=== PATIENT | male | born 1935 | race Caucasian/White ===

== ENCOUNTER 2017-07-04 14:15 | Outpatient (CLI) | payer MEDICARE, OTHER ==
[2017-07-04 19:37] LABS: PSA FREE 1.482 ng/mL (0.16-2.81)
[2017-07-04 19:38] LABS: PSA TOTAL 9.011 ng/mL (0.000-2.000)
== END 2017-07-04 14:16 | disposition home or self-care (01) ==
LOC: LAB.WCP 14:15
PROVIDERS: ATTEND Family Medicine
DX: R97.20 Elevated prostate specific antigen [PSA] (principal)
CPT/HCPCS: 36415; 84154

== ENCOUNTER 2018-07-11 08:00 | Outpatient (CLI) | payer MEDICARE, OTHER ==
[2018-07-11 18:54] LABS: BASOPHILS % (AUTO) 0.3 %; EOSINOPHILS # (AUTO) 0.3 10^3/uL (0.0-0.7); EOSINOPHILS % (AUTO) 3.8 %; HGB - HEMOGLOBIN 14.4 g/dL (14.0-18.0); LYMPHOCYTES % (AUTO) 25.8 %; MEAN CORPUSCULAR HEMOGLOBIN 34.1 pg (27.0-31.0); MEAN CORPUSCULAR HGB CONC 34.1 g/dL (32.0-36.0); MEAN CORPUSCULAR VOLUME 99.9 fL (80.0-94.0); MEAN PLATELET VOLUME 9.3 fL (7.4-11.4); MONOCYTES # (AUTO) 0.9 10^3/uL (0.0-1.0); MONOCYTES % (AUTO) 11.2 %; NEUTROPHILS # (AUTO) 4.5 10^3/uL (1.5-6.6); NEUTROPHILS % (AUTO) 58.9 %; PLT - PLATELET COUNT 263 10^3/uL (130-450); RED BLOOD COUNT 4.23 10^6/uL (4.70-6.10); RED CELL DISTRIBUTION WIDTH 14.3 % (12.0-15.0); WHITE BLOOD COUNT 7.6 x10^3/uL (4.8-10.8)
[2018-07-11 19:00] LABS: THYROID STIMULATING HORMONE 1.39 uIU/mL (0.34-5.60)
[2018-07-11 19:12] LABS: FOLATE 23.83 ng/mL (5.90 - >24.8)
[2018-07-11 19:44] LABS: ALBUMIN 4.1 g/dL (3.2-5.5); ALBUMIN/GLOBULIN RATIO 1.2 (1.0-2.2); ALKALINE PHOSPHATASE 47 IU/L (42-121); ALT ALANINE AMINOTRANSFERASE 15 IU/L (10-60); AST ASPARTATE AMINOTRANSFERASE 20 IU/L (10-42); BILIRUBIN,TOTAL 1.1 mg/dL (0.2-1.0); BUN - BLOOD UREA NITROGEN 13 mg/dL (6-20); CALCIUM 8.9 mg/dL (8.5-10.3); CARBON DIOXIDE - CO2 26 mmol/L (21-32); CHLORIDE 92 mmol/L (101-111); CHOL/HDL RATIO 2.1 (<5.0); CHOLESTEROL 169 mg/dL; CREATININE 0.8 mg/dL (0.6-1.2); GFR - MDRD 92 (>89); GLUCOSE 102 mg/dL (70-100); HDL CHOLESTEROL 80 mg/dL; LDL CHOLESTEROL,CALCULATED 78 mg/dL; SODIUM 126 mmol/L (135-145); TOTAL PROTEIN 7.5 g/dL (6.7-8.2); VLDL CHOLESTEROL 11 mg/dL
== END 2018-07-11 08:01 | disposition home or self-care (01) ==
LOC: LAB.WCP 08:00
PROVIDERS: ATTEND Family Medicine
DX: Z00.00 Encounter for general adult medical examination without abnormal findings (principal); R03.0 Elevated blood-pressure reading, without diagnosis of hypertension; M62.81 Muscle weakness (generalized)
CPT/HCPCS: 36415; 80053; 80061; 82306; 82607; 82746; 83721; 84443; 85025

== ENCOUNTER 2018-09-22 15:34 | Outpatient (CLI) | payer MEDICARE, OTHER ==
[2018-09-22 19:41] LABS: CALCIUM 9.5 mg/dL (8.5-10.3); CREATININE 0.7 mg/dL (0.6-1.2)
== END 2018-09-22 23:59 | disposition home or self-care (01) ==
LOC: LAB.WCP 15:34
PROVIDERS: ATTEND Family Medicine
DX: E87.1 Hypo-osmolality and hyponatremia (principal)
CPT/HCPCS: 36415; 80048

== ENCOUNTER 2020-09-05 15:26 | Outpatient (CLI) | payer MEDICARE, OTHER | END 2020-09-05 15:27 | disposition critical access hospital (66) | LOC: EMS 15:26 | PROVIDERS: ATTEND Surgery | DX: R41.82 Altered mental status, unspecified (principal) | CPT/HCPCS: A0425; A0427 ==

== ENCOUNTER 2020-09-05 15:46 | Inpatient (IN) | payer MEDICARE, OTHER ==
--- NOTE | 2020-09-05 15:55 | ED Physician Documentation ---
PD HPI FOCAL NEURO - Stated complaint Stated Complaint: ALOC - History obtained from History obtained from: Patient - Additional information Additional information: 85-year-old gentleman brought in by ambulance for altered mental status and potentially weakness of unclear acuity. He was found on the floor by his neighbors, last known unknown. It sounds like he lives alone and is generally fairly healthy with the exception of taking some eyedrops. He is definitely confused. No obvious stroke syndrome. Blood sugar prior to arrival was in the 130s. He is incontinent of urine. Review of Systems Unable to obtain: AMS, Confused PD PAST MEDICAL HISTORY - Past Medical History Cardiovascular: None Respiratory: None Endocrine/Autoimmune: None GI: None : None Psych: Depression, Anxiety Musculoskeletal: None Derm: None - Past Surgical History General: Colonoscopy HEENT: Cataracts, Tonsil/Adenoidectomy - Present Medications Home Medications: Ambulatory Orders Medication Instructions Recorded Confirmed Cimetidine 100 mg PO DAILY PRN 04/18/16 07/19/16 OLANZapine [Zyprexa] 2.5 mg PO DAILY 04/18/16 04/19/16 Sertraline HCl [Zoloft] 100 mg PO DAILY 04/18/16 07/19/16 Latanoprost [Xalatan] 2.5 ml OP DAILY 07/19/16 07/19/16 - Allergies Allergies/Adverse Reactions: Allergies Allergy/AdvReac Type Severity Reaction Status Date / Time No Known Drug Allergies Allergy Verified 09/05/20 15:56 PD ED PE NORMAL - Vitals Vital signs reviewed: Yes - General General: Other (A/O x1, not date/place) - HEENT HEENT: PERRL, EOMI - Neck Neck: Supple, no meningeal sign, No bony TTP - Cardiac Cardiac: RRR, No murmur - Respiratory Respiratory: No respiratory distress, Clear bilaterally - Abdomen Abdomen: Other (To the low abdomen and he has some deep abrasions and bruising especially over the anterior lateral left hip but over both hips.) - Back Back: No CVA TTP, No spinal TTP - Neuro Neuro: No motor deficit, No sensory deficit, Normal speech Eye Opening: Spontaneous Motor: Obeys Commands Verbal: Confused GCS Score: 14 NIHSS - Time Time: 15:50 - Level of Consciousness Level of consciousness: (0) Alert, Keenly responsive LOC Questions: (1) Answers one Q correctly (States August, but cannot state the year) LOC Commands: (0) Performs both correctly - Gaze Best Gaze: (0) Normal - Visual Visual: (0) No loss - Facial Palsy Facial Palsy: (0) Normal, symmetrical movement - Motor Arms (both separate) Motor Arm (right): (0) No drift Motor Arm (left): (0) No drift - Motor Legs (both separate) Motor Leg (right): (4) No movement (persistently when I ask him to raise either leg off the bed, he raises his arms.) Motor Leg (left): (4) No movement (persistently when I ask him to raise either leg off the bed, he raises his arms.) - Limb Ataxia Limb Ataxia: (0) Absent - Sensory Sensory: (0) Normal - Best Language Best Language: (0) No aphasia - Dysarthria Dysarthria: (0) Normal - Extinction and Inattention (formally neg Extinction and inattention: (0) No abnormality - Total Score/Results Total Score/Result: 9 Results - Vitals Vitals: Vital Signs - 24 hr 09/05/20 09/05/20 09/05/20 15:56 16:01 16:31 Temperature 36.6 C 36.6 C Heart Rate 80 80 81 Respiratory 16 16 15 Rate Blood Pressure 149/99 H 149/99 H 156/92 H O2 Saturation 98 98 94 09/05/20 09/05/20 09/05/20 17:01 18:00 18:30 Temperature 36.6 C Heart Rate 100 85 90 Respiratory 20 20 18 Rate Blood Pressure 150/90 H 136/90 H 164/85 H O2 Saturation 100 94 100 Oxygen O2 Source Room air - EKG (time done) 1600 Rate: Rate (enter#) (90) Rhythm: NSR, LAE Intervals: LBBB (incomplete) Ischemia: Non specific changes - Labs Labs: Laboratory Tests 09/05/20 09/05/20 09/05/20 15:52 16:12 16:12 WBC Corrected WBC RBC Hgb Hct MCV MCH MCHC RDW Plt Count MPV Neut # (Auto) Lymph # (Auto) [place] # (Auto) Eos # (Auto) Baso # (Auto) Absolute Nucleated RBC Total Counted Band Neuts % (Manual) Reactive Lymphs % (Man) Abnorm Lymph % (Manual) Metamyelocytes % Myelocytes % Promyelocytes % Blast Cells % Plasma Cell % (Manual) Other Cells % Nucleated RBC % Neutrophils # (Manual) Lymphocytes # (Manual) Monocytes # (Manual) Eosinophils # (Manual) Basophils # (Manual) Nucleated RBCs Differential Comment Manual Slide Review WBC Morphology Platelet Estimate Platelet Morphology RBC Morph Micro Appear Sodium 132 L Potassium 3.7 Chloride 92 L Carbon Dioxide 20 L Anion Gap 20.0 H BUN 46 H Creatinine 0.9 Estimated GFR (MDRD) 80 L Glucose 134 H Calcium 9.5 Total Bilirubin 1.7 H AST 81 H ALT 43 Alkaline Phosphatase 141 H Total Creatine Kinase Troponin I High Sens 118.5 H* B-Natriuretic Peptide Total Protein 8.5 H Albumin 4.0 Globulin 4.5 H Albumin/Globulin Ratio 0.9 L Lipase 26 TSH 1.51 Urine Color Urine Clarity Urine pH Ur Specific [place] Urine Protein Urine Glucose (UA) Urine Ketones Urine Occult Blood Urine Nitrite Urine Bilirubin Urine Urobilinogen Ur Leukocyte Esterase Urine RBC Urine WBC Ur Squamous Epith Cells Urine Bacteria Ur Microscopic Review Urine Culture Comments Ethyl Alcohol < 5.0 Slides for Path Review 09/05/20 09/05/20 09/05/20 16:12 16:12 16:15 WBC 11.7 H Corrected WBC PACS SPECIALIST RBC 5.16 Hgb 16.5 Hct 50.3 MCV 97.5 H MCH 32.0 H MCHC 32.8 RDW 14.8 Plt Count 249 MPV 10.8 Neut # (Auto) PACS SPECIALIST Lymph # (Auto) PACS SPECIALIST [place] # (Auto) PACS SPECIALIST Eos # (Auto) PACS SPECIALIST Baso # (Auto) PACS SPECIALIST Absolute Nucleated RBC PACS SPECIALIST Total Counted 100 Band Neuts % (Manual) 2 Reactive Lymphs % (Man) 3 Abnorm Lymph % (Manual) 0 Metamyelocytes % PACS SPECIALIST Myelocytes % PACS SPECIALIST Promyelocytes % PACS SPECIALIST Blast Cells % PACS SPECIALIST Plasma Cell % (Manual) PACS SPECIALIST Other Cells % PACS SPECIALIST Nucleated RBC % PACS SPECIALIST Neutrophils # (Manual) 10.8 H Lymphocytes # (Manual) 0.5 L Monocytes # (Manual) 0.5 Eosinophils # (Manual) 0.0 Basophils # (Manual) 0.0 Nucleated RBCs PACS SPECIALIST Differential Comment MANUAL DIFFERENTIAL Manual Slide Review PACS SPECIALIST WBC Morphology PACS SPECIALIST Platelet Estimate NORMAL (130-450,000) Platelet Morphology NORMAL APPEARANCE RBC Morph Micro Appear NORMAL APPEARANCE Sodium Potassium Chloride Carbon Dioxide Anion Gap BUN Creatinine Estimated GFR (MDRD) Glucose Calcium Total Bilirubin AST ALT Alkaline Phosphatase Total Creatine Kinase 2018 H* Troponin I High Sens B-Natriuretic Peptide 596 H Total Protein Albumin Globulin Albumin/Globulin Ratio Lipase TSH Urine Color Urine Clarity Urine pH Ur Specific [place] Urine Protein Urine Glucose (UA) Urine Ketones Urine Occult Blood Urine Nitrite Urine Bilirubin Urine Urobilinogen Ur Leukocyte Esterase Urine RBC Urine WBC Ur Squamous Epith Cells Urine Bacteria Ur Microscopic Review Urine Culture Comments Ethyl Alcohol Slides for Path Review PACS SPECIALIST 09/05/20 09/05/20 17:09 18:30 WBC Corrected WBC RBC Hgb Hct MCV MCH MCHC RDW Plt Count MPV Neut # (Auto) Lymph # (Auto) [place] # (Auto) Eos # (Auto) Baso # (Auto) Absolute Nucleated RBC Total Counted Band Neuts % (Manual) Reactive Lymphs % (Man) Abnorm Lymph % (Manual) Metamyelocytes % Myelocytes % Promyelocytes % Blast Cells % Plasma Cell % (Manual) Other Cells % Nucleated RBC % Neutrophils # (Manual) Lymphocytes # (Manual) Monocytes # (Manual) Eosinophils # (Manual) Basophils # (Manual) Nucleated RBCs Differential Comment Manual Slide Review WBC Morphology Platelet Estimate Platelet Morphology RBC Morph Micro Appear Sodium Potassium Chloride Carbon Dioxide Anion Gap BUN Creatinine Estimated GFR (MDRD) Glucose Calcium Total Bilirubin AST ALT Alkaline Phosphatase Total Creatine Kinase Troponin I High Sens 158.4 H* B-Natriuretic Peptide Total Protein Albumin Globulin Albumin/Globulin Ratio Lipase TSH Urine Color DARK YELLOW Urine Clarity HAZY Urine pH 6.0 Ur Specific [place] 1.025 Urine Protein 30 H Urine Glucose (UA) NEGATIVE Urine Ketones 40 H Urine Occult Blood LARGE H Urine Nitrite NEGATIVE Urine Bilirubin NEGATIVE Urine Urobilinogen 0.2 (NORMAL) Ur Leukocyte Esterase NEGATIVE Urine RBC 11-25 H Urine WBC 0-3 Ur Squamous Epith Cells RARE Squamous Urine Bacteria Few Ur Microscopic Review INDICATED Urine Culture Comments NOT INDICATED Ethyl Alcohol Slides for Path Review - Rads (name of study) CT angiography of the head and neck Radiology: EMP read contemporaneously (80% stenosis of the left V4 vertebral segment, otherwise age-appropriate changes, no carotid stenosis.) T of the chest with IV contrast Radiology: EMP read contemporaneously (Pleural-based mass with prominent calcification, could be benign or mesothelioma. There is a sclerotic area in the right posterior fourth rib and thoracic spine suspicious for metastases.) CT Abd/pelvis Radiology: EMP read contemporaneously (Multiple areas of bony metastatic disease, enlarged urinary bladder with suspected bladder outlet obstruction. There is hydronephrosis and hydroureter 2. Moderate amount of stool in the colon. Low-density liver disease lesions, could be metastatic disease versus cysts or hemangiomas. Calcificati) PD MEDICAL DECISION MAKING - ED course ED course: 85-year-old gentleman presents with altered mental status. Some concern for stroke but fairly symmetric exam. CT angiography of the head and neck showed a tight vertebral but otherwise no acute disease. Because of some abdominal tenderness and unclear downtime CT of the chest and abdomen were done with potential evidence of mesothelioma and metastatic disease that is widespread. He also has bladder outlet obstruction with a large prostate and hydronephrosis. He was fluid resuscitated and a Ross was placed. There is no evidence of sepsis at this time. I called the next of kin on the chart, one number was disconnected and the other had a vague outgoing message and I left a message to call back but at the time of admission had not heard from her. Spoke with Dr. Child for admission at 6:50 PM. Masha Sabillon, his contact called back about 655pm. She is available at the [phone] number. He doesn't not have great memory. She is not POA, and not related, He does have 3 kids on the [facility]. She will contact his son and have him call us. We do not know goals of care on admission. That said Masha did state that "he wants to be buried next to his , not cremated." His pigment processor also called the but is not listed as a contact and is not family, we did tell her that he was being admitted. Departure - Departure Disposition: 66 [facility] DC/Xfer Clinical Impression: Bladder outlet obstruction Metastatic disease Qualifiers: Area of secondary neoplastic involvement: bone Qualified Code(s): C79.51 - Secondary malignant neoplasm of bone Rhabdomyolysis Qualifiers: Rhabdomyolysis type: non-traumatic Qualified Code(s): M62.82 - Rhabdomyolysis Altered mental status Qualifiers: Altered mental status type: delirium Qualified Code(s): R41.0 - Disorientation, unspecified Condition: Serious Discharge Date/Time: 09/05/20 19:38
[2020-09-05 16:29] LABS: BASOPHILS % (AUTO) 0.3 %; EOSINOPHILS % (AUTO) 0.4 %; HGB - HEMOGLOBIN 16.5 g/dL (14.0-18.0); LYMPHOCYTES % (AUTO) 4.7 %; MEAN CORPUSCULAR HGB CONC 32.8 g/dL (32.0-36.0); MEAN CORPUSCULAR VOLUME 97.5 fL (80.0-94.0); MEAN PLATELET VOLUME 10.8 fL (7.4-11.4); MONOCYTES % (AUTO) 9.8 %; NEUTROPHILS % (AUTO) 83.9 %; PLT - PLATELET COUNT 249 10^3/uL (130-450); RED BLOOD COUNT 5.16 10^6/uL (4.70-6.10); RED CELL DISTRIBUTION WIDTH 14.8 % (12.0-15.0); WHITE BLOOD COUNT 11.7 x10^3/uL (4.8-10.8)
[2020-09-05 16:33] LABS: ABNORMAL LYMPHS % (MANUAL) 0 %
[2020-09-05 16:42] LABS: ALBUMIN/GLOBULIN RATIO 0.9 (1.0-2.2); ALKALINE PHOSPHATASE 141 IU/L (42-121); ALT ALANINE AMINOTRANSFERASE 43 IU/L (10-60); AST ASPARTATE AMINOTRANSFERASE 81 IU/L (10-42); BILIRUBIN,TOTAL 1.7 mg/dL (0.2-1.0); BUN - BLOOD UREA NITROGEN 46 mg/dL (6-20); CALCIUM 9.5 mg/dL (8.5-10.3); CARBON DIOXIDE - CO2 20 mmol/L (21-32); CHLORIDE 92 mmol/L (101-111); CREATININE 0.9 mg/dL (0.6-1.2); GLUCOSE 134 mg/dL (70-100); LIPASE 26 U/L (22-51); SODIUM 132 mmol/L (135-145); TOTAL PROTEIN 8.5 g/dL (6.7-8.2)
[2020-09-05 16:57] LABS: BAND NEUTROPHILS % (MANUAL) 2 %; LYMPHOCYTES # (MANUAL) 0.5 10^3/uL (1.5-3.5); LYMPHOCYTES % (MANUAL) 1 %; MONOCYTES # (MANUAL) 0.5 10^3/uL (0.0-1.0); PLATELET ESTIMATE, MANUAL NORMAL (130-450,000) (NORMAL); PLATELET MORPHOLOGY NORMAL APPEARANCE (NORMAL); RBC MORPHOLOGY (MULTIPLE) NORMAL APPEARANCE (NORMAL)
[2020-09-05 16:58] LABS: DIFFERENTIAL COMMENT MANUAL DIFFERENTIAL
[2020-09-05 17:21] LABS: GLUCOSE, URINE (UA) NEGATIVE (NEGATIVE); KETONES,URINE (UA) 40 mg/dL (NEGATIVE); LEUKOCYTE ESTERASE, URINE NEGATIVE (NEGATIVE); NITRITE,URINE NEGATIVE (NEGATIVE); OCCULT BLOOD,URINE LARGE (NEGATIVE); PROTEIN,URINE 30 mg/dL (NEGATIVE); UROBILINOGEN,URINE 0.2 (NORMAL) E.U./dL (NORMAL)
[2020-09-05 17:31] LABS: BILIRUBIN,URINE NEGATIVE (NEGATIVE); CLARITY,URINE HAZY (CLEAR); ICTOTEST,URINE NEGATIVE
[2020-09-05 17:35] LABS: BACTERIA,URINE Few /HPF (None Seen); SQUAMOUS EPITHELIAL CELL,UR RARE Squamous (<= Few)
[2020-09-05] MEDS ORDERED: SODIUM CHLORIDE 0.9% 1,000 ML IV STA (17:41)
--- NOTE | 2020-09-05 18:21 | CT Report ---
PROCEDURE: ANGIO HEAD W/WO INDICATIONS: ams CONTRAST: IV CONTRAST: Optiray 320 ml: 100 PO CONTRAST: *NO PO CONTRAST TECHNIQUE: Precontrast 4.5 mm thick angled axial sections acquired from the foramen magnum to the vertex. Afte r the administration of intravenous contrast, 1 mm thick sections acquired through the [place] of [place] is. Postcontrast 4.5 mm thick sections then re-acquired from the foramen magnum to the vertex. 3-di mensional qrhhjjm-bgqknwfse-kqsfdshixw (MIP) and/or volume rendering reformats were acquired of the c entral intracranial vasculature. For radiation dose reduction, the following was used: automated ex posure control, adjustment of mA and/or kV according to patient size. COMPARISON: Correlation is made with the accompanying neck CT angiogram as well as the chest, abdome n and pelvis CT examinations. FINDINGS: Image quality: Diagnostic, with note made of motion artifact. Anterior circulation: Intracranial internal carotid arteries are normal in size and flow. The flow within the paired anterior cerebral arteries is normal and symmetric. The flow within the middle cer ebral arteries is normal and symmetric. The anterior communicating artery is seen. No aneurysms are seen. Posterior circulation: The right vertebral artery is dominant to the left. There is high-grade stenos is seen involving the left V4 segment, approximately 90%. There is a normal appearing basilar artery. Flow within the posterior cerebral arteries is normal and symmetric. No aneurysms are seen. CSF spaces: Ventricles are normal in size and shape. Basal cisterns are patent. No extra-axial flu id collections. Brain: No midline shift. Brain parenchymal volume loss is seen. Chronic small vessel ischemic change s can be seen. No intracranial bleeds or masses. Betts-white matter interface appears intact. Skull and face: Calvarium and facial bones appear intact, without suspicious lesions. Sinuses: Visualized sinuses and mastoids are clear. IMPRESSION: No acute intracranial abnormality is seen. Approximately 90% stenosis seen involving the left V4 segment. Age-appropriate brain parenchymal volume loss and chronic small vessel ischemic change can be seen. Reviewed by: Paddy Moses MD on 09/05/2020 5:20 PM [place] Approved by: Paddy Moses MD on 09/05/2020 5:20 PM [facility] Station ID: [id number]
--- NOTE | 2020-09-05 18:25 | CT Report ---
PROCEDURE: ANGIO NECK W INDICATIONS: ams CONTRAST: IV CONTRAST: Optiray 320 ml: 100 PO CONTRAST: *NO PO CONTRAST TECHNIQUE: After the administration of intravenous contrast, 1.5 mm axial sections acquired from the aortic arch to the [place] of [place]. Coronal 3-D maximum intensity projection (MIP) and/or volume rendering ref ormats were then performed. For radiation dose reduction, the following was used: automated exposur e control, adjustment of mA and/or kV according to patient size. COMPARISON: Correlation is made with the accompanying head CT angiogram, as well as the accompanying chest, abdomen, and pelvis CT examinations. FINDINGS: Image quality: Excellent. Carotid system: The great vessels demonstrate a conventional anatomy as they arise from the aortic a rch. The origins of the common carotid arteries appear patent. The common carotid arteries demonstr ate normal calibers and courses. The bifurcation regions appear normal bilaterally. The internal ca rotid arteries demonstrate normal caliber and course. Posterior circulation: The origins of the vertebral arteries appear patent. The right vertebral kassie ry is dominant to the left. Multiple levels of left vertebral artery narrowing can be seen, including an approximately 90% stenosis involving the V4 segment. There is a normal appearing basilar artery. Soft tissues: Visualized neck soft tissues demonstrate no suspicious abnormalities. The thyroid gla nd is normal in size. Bones: No suspicious bony lesions. Degenerative changes are seen of the cervical spine, including mo derate to severe disc space narrowing at C3-C4, C5-C6, and C6-C7. Likely congenital fusion is present at C4-C5. There is minimal retrolisthesis seen at C5-C6. IMPRESSION: No significant carotid stenosis is seen. Multiple levels of the left vertebral artery stenosis are seen, including an approximately 90% stenos is involving the V4 segment. Prominent cervical spine degenerative changes are seen. The estimate of stenosis included in the report of the imaging study was calculated using the NASCET method Reviewed by: Paddy Moses MD on 09/05/2020 5:24 PM [facility] Approved by: Paddy Moses MD on 09/05/2020 5:24 PM [facility] Station ID: [id number]
--- NOTE | 2020-09-05 18:33 | CT Report ---
PROCEDURE: CHEST W INDICATIONS: syncope CONTRAST: IV CONTRAST: Optiray 320 ml: 100 PO CONTRAST: *NO PO CONTRAST TECHNIQUE: After the administration of intravenous contrast, 5 mm thick sections acquired from the pulmonary api karla to the posterior costophrenic angles. 7 mm thick coronal MIP reformats were acquired. For radia tion dose reduction, the following was used: automated exposure control, adjustment of mA and/or kV according to patient size. COMPARISON: Correlation is made with the accompanying abdomen pelvis CT as well as the accompanying head and neck CT angiogram examinations, 09/05/2020. FINDINGS: Image quality: Excellent. Lungs and pleura: No acute air space opacities. No pleural effusions or pneumothorax. There is a c alcified pleural-based mass seen involving the left upper lobe anteriorly, which measures approximate ly 2.5 x 1.1 cm in greatest axial dimension, with a craniocaudal extent of 6.5 cm. Milder pleural mita ques can be seen elsewhere. Central and peripheral airways are patent and normal in caliber. Mediastinum: Heart size is normal. No pericardial effusion. No mediastinal or hilar adenopathy by size criteria. Thoracic aorta and central pulmonary arteries are normal in size. Esophagus is monie l in caliber. Fluid is seen within the esophagus, which is attributed to reflux. No hiatal hernia. Bones and chest wall: The right posterior fourth rib demonstrates generalized thickening and deminera lization. Areas of bony sclerosis can be seen involving the thoracic spine, particularly inferiorly. Age-appropriate degenerative changes are seen. No vertebral body compression fractures. No axillar y or supraclavicular adenopathy by size criteria. Thyroid gland demonstrates no significant CT abnor mality. Abdomen: There is a low-density left liver lesion seen. On the right, smaller low-density liver lesio ns are seen. Bilateral hydronephrosis is seen. Apparent calcification can be seen adjacent to the schwartz creas. Atherosclerotic calcification is seen. The visualized portions of the upper abdominal structur es are otherwise within normal limits. IMPRESSION: There is a pleural-based mass with prominent calcification seen involving the left upper lobe anterio rly. Although this may be benign, please consider mesothelioma. Metastatic disease until proven otherwise involving the right posterior fourth rib. Areas of bony scl erosis can be seen within the thoracic spine, which are also suspicious for bony metastatic disease. Low-density liver lesions are seen. Please see the accompanying abdomen pelvis CT report. Moderate bilateral hydronephrosis. Incidental note is made of: Fluid within the esophagus. Reflux disease is presumed Atherosclerotic calcification Reviewed by: Paddy Moses MD on 09/05/2020 5:31 PM [place] Approved by: Paddy Moses MD on 09/05/2020 5:31 PM [place] Station ID: [id number]
--- NOTE | 2020-09-05 18:40 | CT Report ---
PROCEDURE: Abdomen/Pelvis W INDICATIONS: IV only, low abd pain CONTRAST: IV CONTRAST: Optiray 320 ml: 100 PO CONTRAST: *NO PO CONTRAST TECHNIQUE: After the administration of nonionic IV contrast, 5 mm thick sections acquired from the diaphragms to the symphysis. 5 mm thick coronal and sagittal reformats were acquired. For radiation dose reducti on, the following was used: automated exposure control, adjustment of mA and/or kV according to viri ent size. COMPARISON: Correlation is made with the accompanying chest CT as well as the CT angiograms of the h ead and neck dated 09/05/2020 FINDINGS: Image quality: Excellent. ABDOMEN: Lung bases: Lung bases are clear. Heart size is normal. Fluid is seen within the distal esophagus. Reflux disease is presumed. Solid organs: Low-density lesions are seen within the liver, including a lesion measuring 25 Hounsfie ld units and 2.1 cm within the left liver as well as smaller low-density lesions within the right lul er dome, with the largest measuring 1.6 cm and 22 Hounsfield units. The liver demonstrates normal siz e. The spleen is of normal size and demonstrates no focal lesions. Gallbladder wall does not appear thic kened. Biliary system is non dilated. Pancreas enhances normally. Apparent calcification can be s een surrounding the pancreas. No adrenal nodules. Kidneys demonstrate normal size and enhancement. There is moderate bilateral hydronephrosis and hydr oureter. Peritoneum and bowel: Bowel loops demonstrate normal wall thickness and caliber. No free fluid or a ir. A moderate amount of stool is seen within the proximal colon. Nodes and vessels: No retroperitoneal or mesenteric adenopathy by size criteria. Aorta and inferior vena cava are normal in size. Atherosclerotic calcification is seen. Miscellaneous: No ventral hernias. PELVIS: Genitourinary: Bladder wall thickness is normal. The bladder is enlarged. The prostate is prominent , measuring 5 cm transversely. Miscellaneous: No inguinal hernias or adenopathy. Bones: Numerous areas of bony sclerosis can be seen, particularly involving the lumbar spine and the sacrum. No pathologic fractures are seen at this time, however. IMPRESSION: Multiple areas of bony metastatic disease are seen. Enlarged urinary bladder, with bilateral hydronephrosis and hydroureter. Bladder outlet obstruction i s suspected. There is a moderate amount of stool seen within the colon. Please correlate with clinical constipatio n. Low-density liver lesions are seen. Differential diagnosis includes metastatic disease as well as hyp erdense cysts and hemangiomas. Apparent calcification seen surrounding the pancreas. Please correlate with known patient history. Reviewed by: Paddy Moses MD on 09/05/2020 5:38 PM [place] Approved by: Paddy Moses MD on 09/05/2020 5:38 PM [place] Station ID: [id number]
[2020-09-05] MEDS ORDERED: ONDANSETRON 4 MG/2 ML VIAL IVP PRN (18:46)
[2020-09-05] MEDS ORDERED: ONDANSETRON ODT 4 MG TABLET TL PRN (18:46)
[2020-09-05] MEDS ORDERED: SODIUM CHLORIDE FLUSH 0.9% 10 ML SYRINGE IVP PRN (18:46)
[2020-09-05] MEDS ORDERED: ACETAMINOPHEN 325 MG TABLET PO PRN (18:46)
[2020-09-05] MEDS ORDERED: ASPIRIN CHEW 81 MG TABLET PO STA (19:14)
[2020-09-05] MEDS ORDERED: METOPROLOL TARTRATE 25 MG TABLET PO STA (19:14)
--- NOTE | 2020-09-05 19:37 | HISTORY & PHYSICAL EXAMINATION ---
Chief Complaint - Chief Complaint Chief Complaint: Disorientation History of Present Illness - Admitted From Admitted From:: Home - History Obtained From Records Reviewed: Yes History obtained from: Patient, ER Physician, EMR Exam Limitations: Patient is altered and a poor historian. - History of Present Illness HPI Comment/Other: This is a 85-year-old male with a past medical history of glaucoma, and hypertension who presents today to the hospital after he was found down at home by his neighbors. Most of the history is obtained from emergency department provider and the EMR as patient is a poor historian due to his altered mental status. The patient states he is here at the hospital because he is disoriented. He does not recall what has happened over the past couple of days. He believes he is in [facility]. He does not know that he is in the hospital or why he is here. He reports no chest pain, dyspnea, abdominal pain, nausea, vomiting. He does report feeling thirsty. He denies any difficulty urinating. Complains of no muscle or back pain. He denies any prior history of coronary artery disease, strokes, cancer. The patient was reportedly found down at home by his neighbors with an unknown timeframe. The patient does reportedly live alone. In the emergency department, he was found to be afebrile temperature of 36.6 C. Heart rate was 80. Blood pressure is 149/99. He was not tachypneic and saturating well on room air. Labs are significant for white count 11.7 with a left shift. Sodium is 132. Bicarbonate is 20 and anion gap is 20. BUN is elevated at 46. Creatinine is 0.9. AST is slightly elevated at 81. His CK is over 2000. Initial troponin is over 100 as well. Urinalysis reveals large occult blood and 11-25 RBCs. EKG shows sinus rhythm with slightly prolonged QTC. No obvious ischemic changes. He underwent a CTA of the head and neck which was concerning for 90% stenosis at V4. He also notes CT of the chest and abdomen pelvis which was concerning for possible mesothelioma and metastatic disease. Given the above findings, medicine was consulted for admission. I did discuss goals of care the patient and he believes he would want to be a DNR. The patient does have a neighbor named Masha Sabillon who is his emergency contact. She called the emergency department to tell them that the patient has 3 sons on the [facility]. She will be contacting them to have them call the hospital. The patient does confirm that he [place] 3 [place] with his eldest son named, Rex. History - Past Medical History Cardiovascular: reports: None Respiratory: reports: None Endocrine/Autoimmune: reports: None GI: reports: None : reports: None HEENT: reports: Glaucoma Psych: reports: Depression, Anxiety Musculoskeletal: reports: None Derm: reports: None MRSA Hx?: Yes - Past Surgical History General: reports: Colonoscopy HEENT: reports: Cataracts, Tonsil/Adenoidectomy - Family & Social History Family History Comment/Other: Unable to obtain due to altered mental status. Living arrangement: At home Living Situation: Alone Social History Notes: The patient does reportedly have a caregiver. He reports smoking but quit over 25 years ago. Reports no recent alcohol use. Meds/Allgy - Home Medications Home Medications: Ambulatory Orders Medication Instructions Recorded Confirmed Cimetidine 100 mg PO DAILY PRN 04/18/16 07/19/16 OLANZapine [Zyprexa] 2.5 mg PO DAILY 04/18/16 04/19/16 Sertraline HCl [Zoloft] 100 mg PO DAILY 04/18/16 07/19/16 Latanoprost [Xalatan] 2.5 ml OP DAILY 07/19/16 07/19/16 - Allergies Allergies/Adverse Reactions: Allergies Allergy/AdvReac Type Severity Reaction Status Date / Time No Known Drug Allergies Allergy Verified 09/05/20 15:56 Review of Systems - Constitutional Constitutional: reports: Weakness. denies: Fever - Cardiovascular Cariovascular: denies: Chest pain, Exertional dyspnea, Decr. exercise tolerance - Gastrointestinal Gastrointestinal: denies: Abdominal pain, Nausea, Vomiting - Genitourinary Genitourinary: denies: Dysuria, Frequency, Urgency - Musculoskeletal Musculoskeletal: denies: Muscle pain, Back pain, Muscle aches - Neurological Neurological: reports: General weakness, Other (Disorientation). denies: Focal weakness - All Other Systems All Other Systems: reports: Other (Review of systems is limited due to altered mental status.) Prior Level of Functionality: He reports he does have a caregiver. The patient reports ambulating on his own without any devices. Exam - Vital Signs Reviewed Vital Signs: Yes Vital Signs: Vital Signs x48h Temp Pulse Resp BP Pulse Ox 11/16/20 19:00 36.5 C 88 16 160/88 H 100 09/05/20 18:30 90 18 164/85 H 100 09/05/20 18:00 85 20 136/90 H 94 09/05/20 17:01 36.6 C 100 20 150/90 H 100 09/05/20 16:31 81 15 156/92 H 94 09/05/20 16:01 36.6 C 80 16 149/99 H 98 09/05/20 15:56 36.6 C 80 16 149/99 H 98 - Physical Exam General Appearance: positive: Alert, Mild distress Eyes Bilateral: positive: Normal inspection, Conjunctivae nml ENT: positive: Dry mucous membranes. negative: No signs of dehydration Neck: positive: Nml inspection Respiratory: positive: No respiratory distress, Other (Diminishd in bases.). negative: Wheezes, Rales Cardiovascular: positive: Regular rate & rhythm. negative: Irregularly irregular, Tachycardia, Bradycardia, Systolic murmur Abdomen: positive: Non-tender, No distention. negative: Tenderness, Guarding, Rebound Skin: positive: Warm, Dry, Other (There are 2 significant areas of abrasions and ecchymosis over the lateral aspect of the left hip. No significant bleeding noted. There are faint areas of ecchymosis over the lateral aspect of his right hip and upper thigh.) Extremities: positive: No pedal edema Neurologic/Psychiatric: positive: Disoriented to place, Disoriented to time, Other (He is able to move all 4 extremities. He is oriented to self but not to location, time. He is able to tell me his primary care provider and that his children live on the [facility]. He reports feeling disoriented.). negative: Disoriented to person, Facial droop, Slurred/abnml speech Conclusion/Plan - Problem List (1) Altered mental status Conclusion/Plan: Suspect this is likely related to dehydration. CTA of the head and neck did show stenosis in V4 but he does not have any focal deficits to suggest a stroke at this time. TSH within normal limits. His AST slightly elevated but this is likely due to rhabdomyolysis and not due to liver disease so unlikely that his ammonia would be elevated. We will treat him with IV fluids and monitor his neurologic status. Will consider MRI of the brain if there is no improvement over next 24 hours. Delirium precautions. Qualifiers: Altered mental status type: disorientation Qualified Code(s): R41.0 - Disorientation, unspecified (2) Rhabdomyolysis Conclusion/Plan: His CK is elevated at greater than 2000. His BUN is elevated but creatinine appears normal at 0.9. We will give him another litre of LR and start him on ma intenance IV fluids. Recheck CK in AM. Qualifiers: Rhabdomyolysis type: non-traumatic Qualified Code(s): M62.82 - Rhabdomyolysis (3) Vertebral artery stenosis Conclusion/Plan: There is 90% stenosis of left vertebral artery at V4. At this time, do not suspect acute ischemia given his lack of focal deficits. He did received full dose aspirin in the emergency department. We will continue him on aspirin 81mg daily. Will hold off on statin for time being given the rhabdomyolysis. Will consider MRI of the brain if his mental status does not improve over next 24 hours. Qualifiers: Laterality: left Qualified Code(s): I65.02 - Occlusion and stenosis of left vertebral artery (4) Elevated troponin Conclusion/Plan: This is likely demand ischemia. His troponin is >100. He reports no chest pain and his EKG does not suggest ischemia. We will monitor on telemetry. Check Echo. Trend troponin. (5) Mesothelioma (pleural) Conclusion/Plan: CT of the chest was concerning for possible mesothelioma. This may be the source of his likely metastatic disease. He will need outpatient follow up with oncology. (6) Metastatic disease Conclusion/Plan: It appears that he has metastatic disease and given the CT of the chest, concern is for mesothelioma. He will need outpatient follow-up with oncology for further work-up and treatment. Qualifiers: Area of secondary neoplastic involvement: bone Qualified Code(s): C79.51 - Secondary malignant neoplasm of bone (7) BPH (benign prostatic hyperplasia) Conclusion/Plan: This is causing bladder outlet obstruction. We will start him on Flomax. A Ross catheter has been placed. (8) Bladder outlet obstruction Conclusion/Plan: CT of the abdomen pelvis did reveal moderate bilateral hydronephrosis. This is likely due to BPH. A Ross catheter has been placed. - Lab Results Lab results reviewed: Yes Fish Bones: 09/05/20 16:15 09/05/20 15:52 - Diagnostic Imaging Results Diagnostic Imaging Results: positive: Final report reviewed - EKG Results EKG Interpreted Independently: Yes EKG Findings: EKG reveals a sinus rhythm with no obvious ST segment changes. Motion artifact is noted. No prior EKG to compare to. Core Measures - Anticipated LOS I expect patient to be DC'd or transferred within 96 hours.: Yes - Issues Hospital Issues and Management Plan: 85-year-old male who presents after being found down at home with last known normal unknown. Found to have rhabdomyolysis, dehydration, and likely metastatic cancer from mesothelioma. He will be admitted for IV hydration and further work-up of his altered mental status. - DVT/VTE - Prophylaxis VTE/DVT Device ordered at admit?: Yes VTE/DVT Prophylaxis med ordered at admit?: Yes
[2020-09-05] MEDS: LACTATED RINGERS 1,000 ML IV SCH (20:10)
[2020-09-05] MEDS ORDERED: LACTATED RINGERS 1,000 ML IV ONE (20:12)
[2020-09-05] MEDS: TAMSULOSIN 0.4 MG CAPSULE PO SCH (20:24)
[2020-09-05 20:26] LABS: C. PNEUMONIAE- RESP PCR PANEL NOT DETECTED
[2020-09-05] MEDS ORDERED: IOVERSOL 320 100 ML VIAL IVP ONE ×2 (20:27→20:56)
[2020-09-06] MEDS: SODIUM CHLORIDE FLUSH 0.9% 10 ML SYRINGE IVP SCH ×3 (00:26→17:24)
[2020-09-06 05:20] LABS: BASOPHILS % (AUTO) 0.1 %; EOSINOPHILS % (AUTO) 0.3 %; LYMPHOCYTES % (AUTO) 10.9 %; MEAN CORPUSCULAR HGB CONC 34.2 g/dL (32.0-36.0); MEAN CORPUSCULAR VOLUME 93.6 fL (80.0-94.0); MEAN PLATELET VOLUME 10.2 fL (7.4-11.4); MONOCYTES # (AUTO) 1.1 10^3/uL (0.0-1.0); MONOCYTES % (AUTO) 12.2 %; NEUTROPHILS % (AUTO) 75.8 %; PLT - PLATELET COUNT 235 10^3/uL (130-450); RED BLOOD COUNT 4.06 10^6/uL (4.70-6.10); RED CELL DISTRIBUTION WIDTH 14.6 % (12.0-15.0); WHITE BLOOD COUNT 9.2 x10^3/uL (4.8-10.8)
[2020-09-06 05:32] LABS: CALCIUM 8.5 mg/dL (8.5-10.3); CREATININE 0.5 mg/dL (0.6-1.2); MAGNESIUM 2.3 mg/dL (1.7-2.8)
[2020-09-06] MEDS: LACTATED RINGERS 1,000 ML IV SCH (06:48)
[2020-09-06] MEDS: POTASSIUM CHLOR 10 MEQ/100 ML 10 MEQ/100 ML BAG IV SCH ×2 (07:11→08:44)
[2020-09-06] MEDS ORDERED: POTASSIUM CHLORIDE 20 MEQ TABLET PO ONE (08:13)
[2020-09-06] MEDS: SERTRALINE 50 MG TABLET PO SCH (08:47)
[2020-09-06] MEDS: polyethylene glycoL 3350 17 GM PACKET PO SCH (08:47)
[2020-09-06] MEDS: ENOXAPARIN 40 MG/0.4 ML SYRINGE SUBQ SCH (08:47)
[2020-09-06] MEDS: ASPIRIN EC 81 MG TABLET PO SCH (08:47)
[2020-09-06] MEDS ORDERED: POTASSIUM PHOSPHATE 15 MMOL in SODIUM CHLORIDE 0.9% 250 ML IV ONE (09:00)
[2020-09-06] MEDS ORDERED: NEUTRA-PHOS 250 MG TABLET PO SCH (12:00)
--- NOTE | 2020-09-06 15:05 | PROVIDER PROGRESS NOTE ---
Assessment/Plan - Problem List (1) Altered mental status Qualifiers: Altered mental status type: disorientation Qualified Code(s): R41.0 - Disorientation, unspecified Assessment/Plan: Patient still has some confusion today. Patient's dehydration and metastatic disease could contribute to AMS. CTA of the head and neck did show stenosis in V4 but he does not have any focal deficits to suggest a stroke at this time. TSH within normal limits. Since patient has elevated liver enzyme, we will check an ammonia level. Continue hydration, continue seed laboratory assistant. per social work faculty member report pt is still driving his car. if pt's mental status is not improved, he can not drive any more. (2) Rhabdomyolysis Conclusion/Plan: Improved, CK is down to 900. Patient creatinine is normal, will continue intravenous IV fluid, continue seed laboratory assistant (3) Vertebral artery stenosis Conclusion/Plan: There is 90% stenosis of left vertebral artery at V4. But the patient does not show focal neuro deficit. At this time, do not suspect acute ischemia given his lack of focal deficits. We will continue him on aspirin 81mg daily. Will hold off on statin for time being given the rhabdomyolysis. Will consider MRI of the brain if his mental status does not improve over next 24 hours. (4) Elevated troponin Conclusion/Plan: This is likely demand ischemia. His troponin is >100 but flat, pt is hemodynamic stable now. He reports no chest pain and his EKG does not suggest ischemia. We will monitor on telemetry. ECHO reveals unremarkable. (5) Mesothelioma (pleural) Conclusion/Plan: we will discuss with pt's son for the care plan when he come on tomorrow at bout CT findings. CT of the chest was concerning for possible mesothelioma. This may be the source of his likely metastatic disease. He will need outpatient follow up with oncology. (6) Metastatic disease Conclusion/Plan: will discuss with pt's son for nex care plan, It appears that he has metastatic disease and given the CT of the chest, concern is for mesothelioma. He will need outpatient follow-up with oncology for further work-up and treatment. (7) BPH (benign prostatic hyperplasia) Conclusion/Plan: This is causing bladder outlet obstruction. We will start him on Flomax. A Ross catheter has been placed. (8) Bladder outlet obstruction Conclusion/Plan: CT of the abdomen pelvis did reveal moderate bilateral hydronephrosis. This is likely due to BPH. A Ross catheter has been placed. - Current Meds Current Meds: Current Medications Generic Name Dose Route Start Last Admin Trade Name Xi PRN Reason Stop Dose Admin Aspirin 81 mg 09/06/20 09:00 09/06/20 08:47 Ecotrin PO 81 mg DAILY FABIANO Administration Enoxaparin Sodium 40 mg 09/06/20 09:00 09/06/20 08:47 Lovenox SUBQ 40 mg DAILY FABIANO Administration Lactated Ringer's 1,000 mls @ 100 mls/hr 09/05/20 19:00 09/06/20 06:48 Lr IV 09/06/20 14:59 100 mls/hr .Q10H FABIANO Administration Potassium Phosphate 15 mmol/ 255 mls @ 42.5 mls/hr 09/06/20 09:00 09/06/20 09:53 Sodium Chloride IV 09/06/20 14:59 42.5 mls/hr ONCE ONE Administration Polyethylene Glycol 17 gm 09/06/20 09:00 09/06/20 08:47 Miralax PO 17 gm DAILY FABIANO Administration Sertraline HCl 50 mg 09/06/20 09:00 09/06/20 08:47 Zoloft PO 50 mg DAILY FABIANO Administration Sodium Chloride 10 ml 09/06/20 01:00 09/06/20 09:51 Normal Saline Flush 0.9% IVP 10 ml 0100,0900,1700 FABIANO Administration Tamsulosin HCl 0.4 mg 09/05/20 21:00 09/05/20 20:24 Flomax PO 0.4 mg HS FABIANO Administration - Lab Result Fish Bone Diagrams: 09/06/20 05:00 09/06/20 05:00 - Additional Planning My Orders: My Active Orders 09/06/20 09:00 Sertraline [Zoloft] 50 mg PO DAILY 09/06/20 Lunch Soft Mechanical Diet [DIET] Subjective - Subjective Nursing Reports: Confused Objective Vital Signs: Vital Signs - 24 hr 09/05/20 09/05/20 09/05/20 15:56 16:01 16:31 Temperature 36.6 C 36.6 C Heart Rate 80 80 81 Heart Rate [ Brachial] Respiratory 16 16 15 Rate Blood Pressure 149/99 H 149/99 H 156/92 H Blood Pressure [Left Brachial artery] Blood Pressure [Right Brachial artery] O2 Saturation 98 98 94 09/05/20 09/05/20 09/05/20 17:01 18:00 18:30 Temperature 36.6 C Heart Rate 100 85 90 Heart Rate [ Brachial] Respiratory 20 20 18 Rate Blood Pressure 150/90 H 136/90 H 164/85 H Blood Pressure [Left Brachial artery] Blood Pressure [Right Brachial artery] O2 Saturation 100 94 100 09/05/20 09/05/20 09/05/20 19:00 20:23 21:39 Temperature 36.5 C 36.3 C L Heart Rate 88 Heart Rate [ 83 Brachial] Respiratory 16 18 Rate Blood Pressure 160/88 H 160/88 H Blood Pressure 158/73 H [Left Brachial artery] Blood Pressure 158/73 H [Right Brachial artery] O2 Saturation 100 96 09/06/20 09/06/20 09/06/20 00:25 03:36 07:27 Temperature 36.3 C L 36.9 C 36.8 C Heart Rate Heart Rate [ 61 72 62 Brachial] Respiratory 20 20 18 Rate Blood Pressure Blood Pressure 117/51 L 122/54 L 123/41 L [Left Brachial artery] Blood Pressure [Right Brachial artery] O2 Saturation 98 97 94 09/06/20 11:21 Temperature 36.7 C Heart Rate Heart Rate [ 66 Brachial] Respiratory 16 Rate Blood Pressure Blood Pressure 116/48 L [Left Brachial artery] Blood Pressure [Right Brachial artery] O2 Saturation 96 Oxygen O2 Source Room air I&O (Last 24 Hrs): Intake and Output Totals x24h 09/04/20 09/05/20 09/06/20 23:59 23:59 23:59 Intake Total 2220 2560 Output Total 2200 575 Balance 1984 General: Alert, No acute distress HEENT: Atraumatic Neck: Supple Lymphatic: no adenopathy Neuro: Alert, Non Focal Cardiovascular: Regular rate, Normal S1, Normal S2 Respiratory: Chest non-tender, No respiratory distress, Breath sounds nml Abdomen: Normal bowel sounds, Soft Extremities: Normal pulses Skin: No rashes - Results Results: Laboratory Results WBC 9.2 x10^3/uL (4.8-10.8) 09/06/20 05:00 Corrected WBC TOWERMAN 09/05/20 16:15 RBC 4.06 10^6/uL (4.70-6.10) L 09/06/20 05:00 Hgb 13.0 g/dL (14.0-18.0) L 09/06/20 05:00 Hct 38.0 % (42.0-52.0) L 09/06/20 05:00 MCV 93.6 fL (80.0-94.0) 09/06/20 05:00 MCH 32.0 pg (27.0-31.0) H 09/06/20 05:00 MCHC 34.2 g/dL (32.0-36.0) 09/06/20 05:00 RDW 14.6 % (12.0-15.0) 09/06/20 05:00 Plt Count 235 10^3/uL (130-450) 09/06/20 05:00 MPV 10.2 fL (7.4-11.4) 09/06/20 05:00 Neut # (Auto) 7.0 10^3/uL (1.5-6.6) H 09/06/20 05:00 Lymph # (Auto) 1.0 10^3/uL (1.5-3.5) L 09/06/20 05:00 [place] # (Auto) 1.1 10^3/uL (0.0-1.0) H 09/06/20 05:00 Eos # (Auto) 0.0 10^3/uL (0.0-0.7) 09/06/20 05:00 Baso # (Auto) 0.0 10^3/uL (0.0-0.1) 09/06/20 05:00 Absolute Nucleated RBC 0.00 x10^3/uL 09/06/20 05:00 Total Counted 100 09/05/20 16:15 Band Neuts % (Manual) 2 % (0-10) 09/05/20 16:15 Reactive Lymphs % (Man) 3 % 09/05/20 16:15 Abnorm Lymph % (Manual) 0 % 09/05/20 16:15 Metamyelocytes % TOWERMAN 09/05/20 16:15 Myelocytes % TOWERMAN 09/05/20 16:15 Promyelocytes % TOWERMAN 09/05/20 16:15 Blast Cells % TOWERMAN 09/05/20 16:15 Plasma Cell % (Manual) TOWERMAN 09/05/20 16:15 Other Cells % TOWERMAN 09/05/20 16:15 Nucleated RBC % 0.0 /100WBC 09/06/20 05:00 Neutrophils # (Manual) 10.8 10^3/uL (1.5-6.6) H 09/05/20 16:15 Lymphocytes # (Manual) 0.5 10^3/uL (1.5-3.5) L 09/05/20 16:15 Monocytes # (Manual) 0.5 10^3/uL (0.0-1.0) 09/05/20 16:15 Eosinophils # (Manual) 0.0 10^3/uL (0-0.7) 09/05/20 16:15 Basophils # (Manual) 0.0 10^3/uL (0-0.1) 09/05/20 16:15 Nucleated RBCs TOWERMAN 09/05/20 16:15 Differential Comment MANUAL DIFFERENTIAL 09/05/20 16:15 Manual Slide Review TOWERMAN 09/05/20 16:15 WBC Morphology TOWERMAN 09/05/20 16:15 Platelet Estimate NORMAL (130-450,000) (NORMAL) 09/05/20 16:15 Platelet Morphology NORMAL APPEARANCE (NORMAL) 09/05/20 16:15 RBC Morph Micro Appear NORMAL APPEARANCE (NORMAL) 09/05/20 16:15 Sodium 136 mmol/L (135-145) 09/06/20 05:00 Potassium 3.3 mmol/L (3.5-5.0) L 09/06/20 05:00 Chloride 100 mmol/L (101-111) L 09/06/20 05:00 Carbon Dioxide 24 mmol/L (21-32) 09/06/20 05:00 Anion Gap 12.0 (6-13) 09/06/20 05:00 BUN 37 mg/dL (6-20) H 09/06/20 05:00 Creatinine 0.5 mg/dL (0.6-1.2) L 09/06/20 05:00 Estimated GFR (MDRD) 158 (>89) 09/06/20 05:00 Glucose 109 mg/dL (70-100) H 09/06/20 05:00 Calcium 8.5 mg/dL (8.5-10.3) 09/06/20 05:00 Phosphorus 2.0 mg/dL (2.5-4.6) L 09/06/20 05:00 Magnesium 2.3 mg/dL (1.7-2.8) 09/06/20 05:00 Total Bilirubin 1.7 mg/dL (0.2-1.0) H 09/05/20 15:52 AST 81 IU/L (10-42) H 09/05/20 15:52 ALT 43 IU/L (10-60) 09/05/20 15:52 Alkaline Phosphatase 141 IU/L (42-121) H 09/05/20 15:52 Total Creatine Kinase 963 IU/L (22-269) H 09/06/20 05:00 Troponin I High Sens 150.6 ng/L (2.3-19.7) H* 09/06/20 05:00 B-Natriuretic Peptide 596 pg/mL (5-100) H 09/05/20 16:12 Total Protein 8.5 g/dL (6.7-8.2) H 09/05/20 15:52 Albumin 4.0 g/dL (3.2-5.5) 09/05/20 15:52 Globulin 4.5 g/dL (2.1-4.2) H 09/05/20 15:52 Albumin/Globulin Ratio 0.9 (1.0-2.2) L 09/05/20 15:52 Lipase 26 U/L (22-51) 09/05/20 15:52 TSH 1.51 uIU/mL (0.34-5.60) 09/05/20 16:12 Urine Color DARK YELLOW 09/05/20 17:09 Urine Clarity HAZY (CLEAR) 09/05/20 17:09 Urine pH 6.0 PH (5.0-7.5) 09/05/20 17:09 Ur Specific Sherman 1.025 (1.002-1.030) 09/05/20 17:09 Urine Protein 30 mg/dL (NEGATIVE) H 09/05/20 17:09 Urine Glucose (UA) NEGATIVE mg/dL (NEGATIVE) 09/05/20 17:09 Urine Ketones 40 mg/dL (NEGATIVE) H 09/05/20 17:09 Urine Occult Blood LARGE (NEGATIVE) H 09/05/20 17:09 Urine Nitrite NEGATIVE (NEGATIVE) 09/05/20 17:09 Urine Bilirubin NEGATIVE (NEGATIVE) 09/05/20 17:09 Urine Urobilinogen 0.2 (NORMAL) E.U./dL (NORMAL) 09/05/20 17:09 Ur Leukocyte Esterase NEGATIVE (NEGATIVE) 09/05/20 17:09 Urine RBC 11-25 /HPF (0-5) H 09/05/20 17:09 Urine WBC 0-3 /HPF (0-3) 09/05/20 17:09 Ur Squamous Epith Cells RARE Squamous (<= Few) 09/05/20 17:09 Urine Bacteria Few /HPF (None Seen) 09/05/20 17:09 Ur Microscopic Review INDICATED 09/05/20 17:09 Urine Culture Comments NOT INDICATED 09/05/20 17:09 Nasal Adenovirus (PCR) NOT DETECTED 09/05/20 19:16 Nasal B. parapertussis DNA (PCR) NOT DETECTED 09/05/20 19:16 Nasal Coronavir 229E PCR NOT DETECTED 09/05/20 19:16 Nasal Coronavir HKU1 PCR NOT DETECTED 09/05/20 19:16 Nasal Coronavir NL63 PCR NOT DETECTED 09/05/20 19:16 Nasal Coronavir OC43 PCR NOT DETECTED 09/05/20 19:16 Nasal Enterovir/Rhinovir PCR NOT DETECTED 09/05/20 19:16 Nasal Influenza B PCR NOT DETECTED 09/05/20 19:16 Nasal Influenza A PCR NOT DETECTED 09/05/20 19:16 Nasal Parainfluen 1 PCR NOT DETECTED 09/05/20 19:16 Nasal Parainfluen 2 PCR NOT DETECTED 09/05/20 19:16 Nasal Parainfluen 3 PCR NOT DETECTED 09/05/20 19:16 Nasal Parainfluen 4 PCR NOT DETECTED 09/05/20 19:16 Nasal RSV (PCR) NOT DETECTED 09/05/20 19:16 Nasal B.pertussis DNA PCR NOT DETECTED 09/05/20 19:16 Nasal C.pneumoniae (PCR) NOT DETECTED 09/05/20 19:16 Rohit Human Metapneumo PCR NOT DETECTED 09/05/20 19:16 Nasal M.pneumoniae (PCR) NOT DETECTED 09/05/20 19:16 Nasal SARS-CoV-2 (PCR) NOT DETECTED 09/05/20 19:16 Ethyl Alcohol < 5.0 mg/dL 09/05/20 15:52 [address] Review TOWERMAN 09/05/20 16:15 - Procedures Procedures: Procedures REPLACEMENT OF LEFT LENS WITH SYNTH SUB, PERC APPROACH (04/19/16) REPLACEMENT OF RIGHT LENS WITH SYNTH SUB, PERC APPROACH (07/19/16) ABX Reporting Has patient been on IV antibiotics over the past 48 hours?: No Current Medications - Current Medications Current Medications: Active Medications Acetaminophen (Tylenol) 650 mg PO Q4HR PRN PRN Reason: Pain 1 to 4 Aspirin (Ecotrin) 81 mg PO DAILY [facility] Last Admin: 09/06/20 08:47 Dose: 81 mg Documented by: Enoxaparin Sodium (Lovenox) 40 mg SUBQ DAILY [facility] Last Admin: 09/06/20 08:47 Dose: 40 mg Documented by: Ondansetron HCl (Zofran Odt) 4 mg TL Q6HR PRN PRN Reason: Nausea / Vomiting Ondansetron HCl (Zofran Inj) 4 mg IVP Q6HR PRN PRN Reason: Nausea / Vomiting Polyethylene Glycol (Miralax) 17 gm PO DAILY [facility] Last Admin: 09/06/20 08:47 Dose: 17 gm Documented by: Sertraline HCl (Zoloft) 50 mg PO DAILY [facility] Last Admin: 09/06/20 08:47 Dose: 50 mg Documented by: Sodium Chloride (Normal Saline Flush 0.9%) 10 ml IVP PRN PRN PRN Reason: NEEDED PER PROVIDER ORDERS Sodium Chloride (Normal Saline Flush 0.9%) 10 ml IVP 0100,0900,1700 [facility] Last Admin: 09/06/20 09:51 Dose: 10 ml Documented by: Tamsulosin HCl (Flomax) 0.4 mg PO HS [facility] Last Admin: 09/05/20 20:24 Dose: 0.4 mg Documented by: OLANZapine [Zyprexa] 2.5 mg PO DAILY 04/18/16 Sertraline HCl [Zoloft] 100 mg PO DAILY 04/18/16 Latanoprost [Xalatan] 2.5 ml OP DAILY 07/19/16 Hydrochlorothiazide 12.5 mg PO DAILY 09/06/20
--- NOTE | 2020-09-06 15:35 | PHARMACY PROGRESS NOTE ---
- Best Possible Medication History Admit Date and Time: 09/05/20 1846 Processed by: Pharmacy Medication History completed: Yes Patient Interview: Pt unable to participate Secondary Source(s): Pharmacy records, Insurance records As the person ultimately responsible for medication therapy, providers are able to order a medication from an existing home medication list in [facility] via the "Reconcile Routine" prior to Confirmation of that medication by telecommunications support. Such practice is discouraged except when the physician, in their clinical judgment, deems that a medical need exists for a medication without regard to previous use.
[2020-09-06] MEDS: TAMSULOSIN 0.4 MG CAPSULE PO SCH (21:30)
[2020-09-07] MEDS: SODIUM CHLORIDE FLUSH 0.9% 10 ML SYRINGE IVP SCH ×3 (00:35→16:51)
[2020-09-07 04:33] LABS: BASOPHILS % (AUTO) 0.4 %; EOSINOPHILS # (AUTO) 0.1 10^3/uL (0.0-0.7); EOSINOPHILS % (AUTO) 0.8 %; LYMPHOCYTES # (AUTO) 1.6 10^3/uL (1.5-3.5); LYMPHOCYTES % (AUTO) 20.4 %; MEAN CORPUSCULAR HEMOGLOBIN 31.8 pg (27.0-31.0); MEAN CORPUSCULAR HGB CONC 33.2 g/dL (32.0-36.0); MEAN CORPUSCULAR VOLUME 95.8 fL (80.0-94.0); MEAN PLATELET VOLUME 10.2 fL (7.4-11.4); MONOCYTES # (AUTO) 0.8 10^3/uL (0.0-1.0); MONOCYTES % (AUTO) 10.1 %; NEUTROPHILS # (AUTO) 5.1 10^3/uL (1.5-6.6); NEUTROPHILS % (AUTO) 67.1 %; PLT - PLATELET COUNT 218 10^3/uL (130-450); RED BLOOD COUNT 3.77 10^6/uL (4.70-6.10); RED CELL DISTRIBUTION WIDTH 14.9 % (12.0-15.0); WHITE BLOOD COUNT 7.6 x10^3/uL (4.8-10.8)
[2020-09-07 04:44] LABS: ALBUMIN 2.8 g/dL (3.2-5.5); ALBUMIN/GLOBULIN RATIO 0.9 (1.0-2.2); CALCIUM 8.2 mg/dL (8.5-10.3); CREATININE 0.5 mg/dL (0.6-1.2); MAGNESIUM 2.1 mg/dL (1.7-2.8); PHOSPHORUS 1.9 mg/dL (2.5-4.6); TOTAL PROTEIN 5.8 g/dL (6.7-8.2)
[2020-09-07] MEDS: ENOXAPARIN 40 MG/0.4 ML SYRINGE SUBQ SCH (07:39)
[2020-09-07] MEDS: polyethylene glycoL 3350 17 GM PACKET PO SCH (07:49)
[2020-09-07] MEDS: SERTRALINE 50 MG TABLET PO SCH (07:52)
[2020-09-07] MEDS: MULTIVITAMIN W/MINERALS TABLET PO SCH ×2 (07:52→07:59)
[2020-09-07] MEDS: ASPIRIN EC 81 MG TABLET PO SCH (07:52)
[2020-09-07] MEDS: SODIUM CHLORIDE 0.9% 1,000 ML IV SCH ×2 (09:49→18:55)
[2020-09-07] MEDS: SENNA 8.6 MG TABLET PO SCH (09:49)
[2020-09-07] MEDS: DOCUSATE SODIUM 250 MG CAPSULE PO SCH (09:49)
[2020-09-07] MEDS: NEUTRA-PHOS 250 MG TABLET PO SCH ×2 (11:54→16:50)
--- NOTE | 2020-09-07 12:08 | PROVIDER PROGRESS NOTE ---
Assessment/Plan - Problem List (1) Altered mental status Qualifiers: Altered mental status type: disorientation Qualified Code(s): R41.0 - Disorientation, unspecified Assessment/Plan: 09/07 Patient still present some confused. Patient cannot feed by history of and he needed feeding. CTA of the head was unremarkable for acute finding in the admission. Patient's ammonia level is normal. Pt's PSA is over 200. Patient's dehydration, fall, metastatic disease could contribute pt's confused. At this point, for pt's safety, advise pt DO NOT drive car. Rolling Up Machine Operator evaluation request is filled for pt. we will discuss with pt's son YENNIFER for care plan, his son will come this afternoon Patient still has some confusion today. Patient's dehydration and metastatic disease could contribute to AMS. CTA of the head and neck did show stenosis in V4 but he does not have any focal deficits to suggest a stroke at this time. TSH within normal limits. Since patient has elevated liver enzyme, we will check an ammonia level. Continue hydration, continue laborer laboratory. per social science research assistant report pt is still driving his car. if pt's mental status is not impro loren, he can not drive any more. (2) Rhabdomyolysis Conclusion/Plan: 1118, improved, CK is over 400. Patient has stable and good renal function Improved, CK is down to 900. Patient creatinine is normal, will continue intravenous IV fluid, continue laborer laboratory (3) Vertebral artery stenosis Conclusion/Plan: There is 90% stenosis of left vertebral artery at V4. But the patient does not show focal neuro deficit. At this time, do not suspect acute ischemia given his lack of focal deficits. We will continue him on aspirin 81mg daily. Will hold off on statin for time being given the rhabdomyolysis. Will consider MRI of the brain if his mental status does not improve over next 24 hours. (4) Elevated troponin Conclusion/Plan: This is likely demand ischemia. His troponin is >100 but flat, pt is hemodynamic stable now. He reports no chest pain and his EKG does not suggest ischemia. We will monitor on telemetry. ECHO reveals unremarkable. (5) Mesothelioma (pleural) Conclusion/Plan: we will discuss with pt's son for the care plan when he come on tomorrow at bout CT findings. CT of the chest was concerning for possible mesothelioma. This may be the source of his likely metastatic disease. He will need outpatient follow up with oncology. (6) Metastatic disease Conclusion/Plan: 1117, PSA test is over 200,Patient had multiple location for bone lesion, liver lesion, also likely patient has mesothelioma per image study. we will discuss with pt's son DPOA for care plan, his son will come this afternoon will discuss with pt's son for nex care plan, It appears that he has metastatic disease and given the CT of the chest, concern is for mesothelioma. He will need outpatient follow-up with oncology for further work-up and treatment. (7) BPH (benign prostatic hyperplasia) Conclusion/Plan: 1117, patient's PSA is over 200, it is indicated patient may have prostate cancer. Patient also had multiple locations of bone lesion This is causing bladder outlet obstruction. We will start him on Flomax. A Ross catheter has been placed. (8) Bladder outlet obstruction Conclusion/Plan: 1117, we will continue to keep his Ross in the hospital right now. CT of the abdomen pelvis did reveal moderate bilateral hydronephrosis. CT of the abdomen pelvis did reveal moderate bilateral hydronephrosis. This is likely due to BPH. A Ross catheter has been placed. - Current Meds Current Meds: Current Medications Generic Name Dose Route Start Last Admin Trade Name Freq PRN Reason Stop Dose Admin Aspirin 81 mg 09/06/20 09:00 09/07/20 07:52 Ecotrin PO 81 mg DAILY FABIANO Administration Docusate Sodium 250 - 500 mg 09/07/20 09:00 09/07/20 09:49 Colace 250mg Capsule PO Not Given DAILY FABIANO Enoxaparin Sodium 40 mg 09/06/20 09:00 09/07/20 07:39 Lovenox SUBQ 40 mg DAILY FABIANO Administration Sodium Chloride 1,000 mls @ 100 mls/hr 09/07/20 09:00 09/07/20 09:49 Normal Saline 0.9% IV 09/08/20 04:59 100 mls/hr .Q10H FABIANO Administration Multivitamins/Minerals 1 tab 09/07/20 08:00 09/07/20 07:59 Theragran M PO Not Given DAILYWM FABIANO Polyethylene Glycol 17 gm 09/06/20 09:00 09/07/20 07:49 Miralax PO 17 gm DAILY FABIANO Administration Senna 8.6 - 17.2 mg 09/07/20 09:00 09/07/20 09:49 Senokot PO Not Given DAILY FABIANO Sertraline HCl 50 mg 09/06/20 09:00 09/07/20 07:52 Zoloft PO 50 mg DAILY FABIANO Administration Sodium Chloride 10 ml 09/06/20 01:00 09/07/20 07:50 Normal Saline Flush 0.9% IVP 10 ml 0100,0900,1700 FABIANO Administration Sodium Phosphate 250 mg 09/07/20 12:00 09/07/20 11:54 K-Phos Neutral PO 250 mg TIDWM FABIANO Administration Tamsulosin HCl 0.4 mg 09/05/20 21:00 09/06/20 21:30 Flomax PO 0.4 mg HS FABIANO Administration - Lab Result Fish Bone Diagrams: 09/07/20 04:15 09/07/20 04:15 - Additional Planning My Orders: My Active Orders 09/06/20 Lunch Soft Mechanical Diet [DIET] 09/07/20 09:00 Sodium Chloride 0.9% [Normal Saline 0.9%] 1,000 ml IV 100 mls/hr 09/07/20 12:00 Neutra-Phos [K-Phos Neutral] 250 mg PO TIDWM 09/08/20 05:00 CMP [COMPREHENSIVE METABOLIC PANEL] [CHEM] DAILYLAB 09/09/20 05:00 CMP [COMPREHENSIVE METABOLIC PANEL] [CHEM] DAILYLAB 09/10/20 05:00 CMP [COMPREHENSIVE METABOLIC PANEL] [CHEM] DAILYLAB 09/11/20 05:00 CMP [COMPREHENSIVE METABOLIC PANEL] [CHEM] DAILYLAB Subjective - Subjective Nursing Reports: Confused Objective Vital Signs: Vital Signs - 24 hr 09/06/20 09/06/20 09/06/20 13:46 14:50 15:52 Temperature 36.5 C Heart Rate [ 66 Brachial] Heart Rate [ 92 92 Sitting] Heart Rate [ 79 66 Supine] Respiratory 18 Rate Blood Pressure [Left Brachial artery] Blood Pressure 114/53 L [Right Brachial artery] Blood Pressure 130/60 130/60 [Sitting] Blood Pressure 112/47 L 112/47 L [Supine] O2 Saturation 96 09/06/20 09/06/20 09/07/20 20:41 23:45 04:23 Temperature 35.8 C L 35.8 C L 35.6 C L Heart Rate [ 70 68 70 Brachial] Heart Rate [ Sitting] Heart Rate [ Supine] Respiratory 18 18 20 Rate Blood Pressure 133/54 H [Left Brachial artery] Blood Pressure 126/59 L 126/53 L [Right Brachial artery] Blood Pressure [Sitting] Blood Pressure [Supine] O2 Saturation 97 96 94 09/07/20 07:36 Temperature 36.4 C L Heart Rate [ 80 Brachial] Heart Rate [ Sitting] Heart Rate [ Supine] Respiratory 17 Rate Blood Pressure 127/53 L [Left Brachial artery] Blood Pressure [Right Brachial artery] Blood Pressure [Sitting] Blood Pressure [Supine] O2 Saturation 94 Oxygen O2 Source Room air I&O (Last 24 Hrs): Intake and Output Totals x24h 09/05/20 09/06/20 09/07/20 23:59 23:59 23:59 Intake Total 2220 4265 420 Output Total 2200 825 200 Balance 20 3440 220 General: Alert, Cooperative, No acute distress HEENT: Atraumatic Lymphatic: no adenopathy Neuro: Alert, Disoriented, Non Focal Cardiovascular: Regular rate, Normal S1, Normal S2 Respiratory: Chest non-tender, No respiratory distress, Breath sounds nml Abdomen: Normal bowel sounds, Soft Extremities: Normal pulses - Results Results: Laboratory Results WBC 7.6 x10^3/uL (4.8-10.8) 09/07/20 04:15 Corrected WBC RESEARCH AND DEVELOPMENT DIRECTOR 09/05/20 16:15 RBC 3.77 10^6/uL (4.70-6.10) L 09/07/20 04:15 Hgb 12.0 g/dL (14.0-18.0) L 09/07/20 04:15 Hct 36.1 % (42.0-52.0) L 09/07/20 04:15 MCV 95.8 fL (80.0-94.0) H 09/07/20 04:15 MCH 31.8 pg (27.0-31.0) H 09/07/20 04:15 MCHC 33.2 g/dL (32.0-36.0) 09/07/20 04:15 RDW 14.9 % (12.0-15.0) 09/07/20 04:15 Plt Count 218 10^3/uL (130-450) 09/07/20 04:15 MPV 10.2 fL (7.4-11.4) 09/07/20 04:15 Neut # (Auto) 5.1 10^3/uL (1.5-6.6) 09/07/20 04:15 Lymph # (Auto) 1.6 10^3/uL (1.5-3.5) 09/07/20 04:15 Smyth # (Auto) 0.8 10^3/uL (0.0-1.0) 09/07/20 04:15 Eos # (Auto) 0.1 10^3/uL (0.0-0.7) 09/07/20 04:15 Baso # (Auto) 0.0 10^3/uL (0.0-0.1) 09/07/20 04:15 Absolute Nucleated RBC 0.00 x10^3/uL 09/07/20 04:15 Total Counted 100 09/05/20 16:15 Band Neuts % (Manual) 2 % (0-10) 09/05/20 16:15 Reactive Lymphs % (Man) 3 % 09/05/20 16:15 Abnorm Lymph % (Manual) 0 % 09/05/20 16:15 Metamyelocytes % RESEARCH AND DEVELOPMENT DIRECTOR 09/05/20 16:15 Myelocytes % RESEARCH AND DEVELOPMENT DIRECTOR 09/05/20 16:15 Promyelocytes % RESEARCH AND DEVELOPMENT DIRECTOR 09/05/20 16:15 Blast Cells % RESEARCH AND DEVELOPMENT DIRECTOR 09/05/20 16:15 Plasma Cell % (Manual) RESEARCH AND DEVELOPMENT DIRECTOR 09/05/20 16:15 Other Cells % RESEARCH AND DEVELOPMENT DIRECTOR 09/05/20 16:15 Nucleated RBC % 0.0 /100WBC 09/07/20 04:15 Neutrophils # (Manual) 10.8 10^3/uL (1.5-6.6) H 09/05/20 16:15 Lymphocytes # (Manual) 0.5 10^3/uL (1.5-3.5) L 09/05/20 16:15 Monocytes # (Manual) 0.5 10^3/uL (0.0-1.0) 09/05/20 16:15 Eosinophils # (Manual) 0.0 10^3/uL (0-0.7) 09/05/20 16:15 Basophils # (Manual) 0.0 10^3/uL (0-0.1) 09/05/20 16:15 Nucleated RBCs RESEARCH AND DEVELOPMENT DIRECTOR 09/05/20 16:15 Differential Comment MANUAL DIFFERENTIAL 09/05/20 16:15 Manual Slide Review RESEARCH AND DEVELOPMENT DIRECTOR 09/05/20 16:15 WBC Morphology RESEARCH AND DEVELOPMENT DIRECTOR 09/05/20 16:15 Platelet Estimate NORMAL (130-450,000) (NORMAL) 09/05/20 16:15 Platelet Morphology NORMAL APPEARANCE (NORMAL) 09/05/20 16:15 RBC Morph Micro Appear NORMAL APPEARANCE (NORMAL) 09/05/20 16:15 Sodium 133 mmol/L (135-145) L 09/07/20 04:15 Potassium 3.7 mmol/L (3.5-5.0) 09/07/20 04:15 Chloride 101 mmol/L (101-111) 09/07/20 04:15 Carbon Dioxide 25 mmol/L (21-32) 09/07/20 04:15 Anion Gap 7.0 (6-13) 09/07/20 04:15 BUN 26 mg/dL (6-20) H 09/07/20 04:15 Creatinine 0.5 mg/dL (0.6-1.2) L 09/07/20 04:15 Estimated GFR (MDRD) 158 (>89) 09/07/20 04:15 Glucose 115 mg/dL (70-100) H 09/07/20 04:15 Calcium 8.2 mg/dL (8.5-10.3) L 09/07/20 04:15 Phosphorus 1.9 mg/dL (2.5-4.6) L 09/07/20 04:15 Magnesium 2.1 mg/dL (1.7-2.8) 09/07/20 04:15 Total Bilirubin 1.0 mg/dL (0.2-1.0) 09/07/20 04:15 AST 34 IU/L (10-42) 09/07/20 04:15 ALT 26 IU/L (10-60) 09/07/20 04:15 Alkaline Phosphatase 96 IU/L (42-121) 09/07/20 04:15 Ammonia 29.0 umol/L (7-35) 09/07/20 04:15 Total Creatine Kinase 401 IU/L (22-269) H 09/07/20 04:15 Troponin I High Sens 150.6 ng/L (2.3-19.7) H* 09/06/20 05:00 B-Natriuretic Peptide 596 pg/mL (5-100) H 09/05/20 16:12 Total Protein 5.8 g/dL (6.7-8.2) L 09/07/20 04:15 Albumin 2.8 g/dL (3.2-5.5) L 09/07/20 04:15 Globulin 3.0 g/dL (2.1-4.2) 09/07/20 04:15 Albumin/Globulin Ratio 0.9 (1.0-2.2) L 09/07/20 04:15 Lipase 26 U/L (22-51) 09/05/20 15:52 PSA Screen 208.000 ng/mL (0.000-2.000) H 09/07/20 08:49 TSH 1.51 uIU/mL (0.34-5.60) 09/05/20 16:12 Urine Color DARK YELLOW 09/05/20 17:09 Urine Clarity HAZY (CLEAR) 09/05/20 17:09 Urine pH 6.0 PH (5.0-7.5) 09/05/20 17:09 Ur Specific [place] 1.025 (1.002-1.030) 09/05/20 17:09 Urine Protein 30 mg/dL (NEGATIVE) H 09/05/20 17:09 Urine Glucose (UA) NEGATIVE mg/dL (NEGATIVE) 09/05/20 17:09 Urine Ketones 40 mg/dL (NEGATIVE) H 09/05/20 17:09 Urine Occult Blood LARGE (NEGATIVE) H 09/05/20 17:09 Urine Nitrite NEGATIVE (NEGATIVE) 09/05/20 17:09 Urine Bilirubin NEGATIVE (NEGATIVE) 09/05/20 17:09 Urine Urobilinogen 0.2 (NORMAL) E.U./dL (NORMAL) 09/05/20 17:09 Ur Leukocyte Esterase NEGATIVE (NEGATIVE) 09/05/20 17:09 Urine RBC 11-25 /HPF (0-5) H 09/05/20 17:09 Urine WBC 0-3 /HPF (0-3) 09/05/20 17:09 Ur Squamous Epith Cells RARE Squamous (<= Few) 09/05/20 17:09 Urine Bacteria Few /HPF (None Seen) 09/05/20 17:09 Ur Microscopic Review INDICATED 09/05/20 17:09 Urine Culture Comments NOT INDICATED 09/05/20 17:09 Nasal Adenovirus (PCR) NOT DETECTED 09/05/20 19:16 Nasal B. parapertussis DNA (PCR) NOT DETECTED 09/05/20 19:16 Nasal Coronavir 229E PCR NOT DETECTED 09/05/20 19:16 Nasal Coronavir HKU1 PCR NOT DETECTED 09/05/20 19:16 Nasal Coronavir NL63 PCR NOT DETECTED 09/05/20 19:16 Nasal Coronavir OC43 PCR NOT DETECTED 09/05/20 19:16 Nasal Enterovir/Rhinovir PCR NOT DETECTED 09/05/20 19:16 Nasal Influenza B PCR NOT DETECTED 09/05/20 19:16 Nasal Influenza A PCR NOT DETECTED 09/05/20 19:16 Nasal Parainfluen 1 PCR NOT DETECTED 09/05/20 19:16 Nasal Parainfluen 2 PCR NOT DETECTED 09/05/20 19:16 Nasal Parainfluen 3 PCR NOT DETECTED 09/05/20 19:16 Nasal Parainfluen 4 PCR NOT DETECTED 09/05/20 19:16 Nasal RSV (PCR) NOT DETECTED 09/05/20 19:16 Nasal B.pertussis DNA PCR NOT DETECTED 09/05/20 19:16 Nasal C.pneumoniae (PCR) NOT DETECTED 09/05/20 19:16 Rohit Human Metapneumo PCR NOT DETECTED 09/05/20 19:16 Nasal M.pneumoniae (PCR) NOT DETECTED 09/05/20 19:16 Nasal SARS-CoV-2 (PCR) NOT DETECTED 09/05/20 19:16 Ethyl Alcohol < 5.0 mg/dL 09/05/20 15:52 Slides for Path Review RESEARCH AND DEVELOPMENT DIRECTOR 09/05/20 16:15 - Procedures Procedures: Procedures REPLACEMENT OF LEFT LENS WITH SYNTH SUB, PERC APPROACH (04/19/16) REPLACEMENT OF RIGHT LENS WITH SYNTH SUB, PERC APPROACH (07/19/16) ABX Reporting Has patient been on IV antibiotics over the past 48 hours?: No Current Medications - Current Medications Current Medications: Active Medications Acetaminophen (Tylenol) 650 mg PO Q4HR PRN PRN Reason: Pain 1 to 4 Aspirin (Ecotrin) 81 mg PO DAILY [facility] Last Admin: 09/07/20 07:52 Dose: 81 mg Documented by: Docusate Sodium (Colace 250mg Capsule) 250 - 500 mg PO DAILY [facility] Last Admin: 09/07/20 09:49 Dose: Not Given Documented by: Enoxaparin Sodium (Lovenox) 40 mg SUBQ DAILY [facility] Last Admin: 09/07/20 07:39 Dose: 40 mg Documented by: Sodium Chloride (Normal Saline 0.9%) 1,000 mls @ 100 mls/hr IV .Q10H [facility] Stop: 09/08/20 04:59 Last Admin: 09/07/20 09:49 Dose: 100 mls/hr Documented by: Multivitamins/Minerals (Theragran M) 1 tab PO DAILYWM [facility] Last Admin: 09/07/20 07:59 Dose: Not Given Documented by: Ondansetron HCl (Zofran Odt) 4 mg TL Q6HR PRN PRN Reason: Nausea / Vomiting Ondansetron HCl (Zofran Inj) 4 mg IVP Q6HR PRN PRN Reason: Nausea / Vomiting Polyethylene Glycol (Miralax) 17 gm PO DAILY [facility] Last Admin: 09/07/20 07:49 Dose: 17 gm Documented by: Senna (Senokot) 8.6 - 17.2 mg PO DAILY [facility] Last Admin: 09/07/20 09:49 Dose: Not Given Documented by: Sertraline HCl (Zoloft) 50 mg PO DAILY [facility] Last Admin: 09/07/20 07:52 Dose: 50 mg Documented by: Sodium Chloride (Normal Saline Flush 0.9%) 10 ml IVP PRN PRN PRN Reason: NEEDED PER PROVIDER ORDERS Sodium Chloride (Normal Saline Flush 0.9%) 10 ml IVP 0100,0900,1700 [facility] Last Admin: 09/07/20 07:50 Dose: 10 ml Documented by: Sodium Phosphate (K-Phos Neutral) 250 mg PO TIDWM [facility] Last Admin: 09/07/20 11:54 Dose: 250 mg Documented by: Tamsulosin HCl (Flomax) 0.4 mg PO HS [facility] Last Admin: 09/06/20 21:30 Dose: 0.4 mg Documented by: Aspirin Chewable [[place] Aspirin] 81 mg PO DAILY 09/06/20 Hydrochlorothiazide 12.5 mg PO DAILY 09/06/20
[2020-09-07] MEDS ORDERED: MAGNESIUM HYDROXIDE 2,400 MG/30 ML UDC PO ONE (19:53)
[2020-09-07] MEDS: TAMSULOSIN 0.4 MG CAPSULE PO SCH (20:50)
[2020-09-08] MEDS: SODIUM CHLORIDE FLUSH 0.9% 10 ML SYRINGE IVP SCH ×3 (05:03→17:30)
[2020-09-08 05:19] LABS: BASOPHILS % (AUTO) 0.4 %; EOSINOPHILS # (AUTO) 0.1 10^3/uL (0.0-0.7); EOSINOPHILS % (AUTO) 1.4 %; HGB - HEMOGLOBIN 11.8 g/dL (14.0-18.0); LYMPHOCYTES # (AUTO) 1.6 10^3/uL (1.5-3.5); LYMPHOCYTES % (AUTO) 22.8 %; MEAN CORPUSCULAR HEMOGLOBIN 31.9 pg (27.0-31.0); MEAN CORPUSCULAR VOLUME 96.8 fL (80.0-94.0); MEAN PLATELET VOLUME 10.4 fL (7.4-11.4); MONOCYTES # (AUTO) 0.7 10^3/uL (0.0-1.0); MONOCYTES % (AUTO) 10.6 %; NEUTROPHILS # (AUTO) 4.3 10^3/uL (1.5-6.6); NEUTROPHILS % (AUTO) 61.1 %; PLT - PLATELET COUNT 240 10^3/uL (130-450); RED CELL DISTRIBUTION WIDTH 14.8 % (12.0-15.0)
[2020-09-08 05:35] LABS: ALBUMIN 2.4 g/dL (3.2-5.5); ALBUMIN/GLOBULIN RATIO 0.8 (1.0-2.2); BILIRUBIN,TOTAL 0.8 mg/dL (0.2-1.0); CALCIUM 7.9 mg/dL (8.5-10.3); CREATININE 0.5 mg/dL (0.6-1.2); MAGNESIUM 1.9 mg/dL (1.7-2.8); PHOSPHORUS 1.7 mg/dL (2.5-4.6); TOTAL PROTEIN 5.3 g/dL (6.7-8.2)
[2020-09-08] MEDS: DOCUSATE SODIUM 250 MG CAPSULE PO SCH (08:40)
[2020-09-08] MEDS: NEUTRA-PHOS 250 MG TABLET PO SCH ×3 (08:40→17:30)
[2020-09-08] MEDS: SERTRALINE 50 MG TABLET PO SCH (08:40)
[2020-09-08] MEDS: ASPIRIN EC 81 MG TABLET PO SCH (08:41)
[2020-09-08] MEDS: ENOXAPARIN 40 MG/0.4 ML SYRINGE SUBQ SCH (08:41)
[2020-09-08] MEDS: MULTIVITAMIN W/MINERALS TABLET PO SCH (08:41)
[2020-09-08] MEDS: SENNA 8.6 MG TABLET PO SCH (08:56)
[2020-09-08] MEDS: polyethylene glycoL 3350 17 GM PACKET PO SCH (08:56)
[2020-09-08] MEDS ORDERED: GI COCKTAIL 120 ML BOTTLE PO PRN (12:18)
[2020-09-08] MEDS ORDERED: GI COCKTAIL 120 ML BOTTLE PO SCH (12:19)
[2020-09-08] MEDS: PANTOPRAZOLE 40 MG TABLET PO SCH (13:39)
[2020-09-08] MEDS: TIMOLOL 0.5% OPHTH DROPS EACHEYE SCH ×2 (13:41→21:21)
--- NOTE | 2020-09-08 14:53 | CONSULTATION NOTE ---
Referring Provider Name of Referring Provider:: Ruchi Pretty Consult Date: 09/08/20 Chief Complaint - Chief Complaint Chief Complaint: Pain with swallowing History of Present Illness - Admitted From Admitted From:: ED - History Obtained From Records Reviewed: Providers notes History obtained from: Provider and patient Exam Limitations: Patient's mental status - History of Present Illness HPI Comment/Other: Unfortunate 85-year-old gentleman who was admitted 2 days ago with a diagnosis of rhabdomyolysis and metastatic malignancy. He was found down and transported to the emergency department. He was seen and evaluated there and there were findings consistent with high-grade stenosis of the posterior vertebral artery, calcified lesion within the lung and evidence of metastatic disease, profoundly elevated PSA, and lytic lesions of bone. Rhabdo is improving. The plan is for outpatient Oncology evaluation following discharge. The patient reports he has pain with swallowing. This afternoon he tells me he is able to eat but it is sometimes feels pain. He is having difficulty staying awake to talk to me about it. He denies any pain now. History - Past Medical History Cardiovascular: reports: None Respiratory: reports: None Endocrine/Autoimmune: reports: None GI: reports: None : reports: None HEENT: reports: Glaucoma Psych: reports: Depression, Anxiety Musculoskeletal: reports: None Derm: reports: None MRSA Hx?: Yes Other Past Medical History: Depression/anxiety, mesothelioma, cataracts - Past Surgical History General: reports: Colonoscopy HEENT: reports: Cataracts, Tonsil/Adenoidectomy - Family & Social History Family History Comment/Other: Unable to obtain due to altered mental status. Living arrangement: At home Living Situation: Alone Social History Notes: The patient does reportedly have a caregiver. He reports smoking but quit over 25 years ago. Reports no recent alcohol use. Meds/Allgy - Home Medications Home Medications: Ambulatory Orders Medication Instructions Recorded Confirmed Aspirin Chewable [[place] 81 mg PO DAILY 09/06/20 09/06/20 Aspirin] Hydrochlorothiazide 12.5 mg PO DAILY 09/06/20 09/06/20 Dorzolamide HCl/Pf [Dorzolamide 2% 1 drops EACHEYE BID 09/08/20 09/08/20 Eye Drop] Timolol 0.5% Ophth Drops [Timoptic 1 drops EACHEYE BID 09/08/20 09/08/20 0.5% Ophth Drops] - Allergies Allergies/Adverse Reactions: Allergies Allergy/AdvReac Type Severity Reaction Status Date / Time No Known Drug Allergies Allergy Verified 09/05/20 15:56 Exam - Vital Signs Reviewed Vital Signs: Yes Vital Signs: Vital Signs x48h Temp Pulse Resp BP BP Pulse Ox 09/08/20 12:57 36.7 C 69 18 143/64 H 96 09/08/20 07:45 36.7 C 75 20 147/57 H 93 - Physical Exam General Appearance: positive: Lethargic Abdomen: positive: Non-tender, Nml bowel sounds, No distention. negative: Guard ing, Rebound Conclusion and Plan - Lab Results Laboratory Results 09/08/20 04:50: Sodium 133 L, Potassium 4.0, Chloride 101, Carbon Dioxide 26, Anion Gap 6.0, BUN 15, Creatinine 0.5 L, Estimated GFR (MDRD) 158, Glucose 119 H, Calcium 7.9 L, Phosphorus 1.7 L, Magnesium 1.9, Total Bilirubin 0.8, AST 32, ALT 29, Alkaline Phosphatase 96, Total Creatine Kinase 217, Total Protein 5.3 L, Albumin 2.4 L, Globulin 2.9, Albumin/Globulin Ratio 0.8 L 09/08/20 04:50: WBC 7.0, RBC 3.70 L, Hgb 11.8 L, Hct 35.8 L, MCV 96.8 H, MCH 31.9 H, MCHC 33.0, RDW 14.8, Plt Count 240, MPV 10.4, Neut # (Auto) 4.3, Lymph # (Auto) 1.6, Brown # (Auto) 0.7, Eos # (Auto) 0.1, Baso # (Auto) 0.0, Absolute Nucleated RBC 0.00, Nucleated RBC % 0.0 09/07/20 08:49: PSA Screen 208.000 H 09/07/20 04:15: Ammonia 29.0 09/07/20 04:15: Sodium 133 L, Potassium 3.7, Chloride 101, Carbon Dioxide 25, Anion Gap 7.0, BUN 26 H, Creatinine 0.5 L, Estimated GFR (MDRD) 158, Glucose 115 H, Calcium 8.2 L, Phosphorus 1.9 L, Magnesium 2.1, Total Bilirubin 1.0, AST 34, ALT 26, Alkaline Phosphatase 96, Total Creatine Kinase 401 H, Total Protein 5.8 L, Albumin 2.8 L, Globulin 3.0, Albumin/Globulin Ratio 0.9 L 09/07/20 04:15: WBC 7.6, RBC 3.77 L, Hgb 12.0 L, Hct 36.1 L, MCV 95.8 H, MCH 31.8 H, MCHC 33.2, RDW 14.9, Plt Count 218, MPV 10.2, Neut # (Auto) 5.1, Lymph # (Auto) 1.6, Brown # (Auto) 0.8, Eos # (Auto) 0.1, Baso # (Auto) 0.0, Absolute Nucleated RBC 0.00, Nucleated RBC % 0.0 - Diagnostic Imaging Results Diagnostic Imaging Results: positive: Final report reviewed Diagnostic Imaging Results Comments: CT chest 09/05 IMPRESSION: There is a pleural-based mass with prominent calcification seen involving the left upper lobe anteriorly. Although this may be benign, please consider mesothelioma. Metastatic disease until proven otherwise involving the right posterior fourth rib. Areas of bony sclerosis can be seen within the thoracic spine, which are also suspicious for bony metastatic disease. Low-density liver lesions are seen. Please see the accompanying abdomen pelvis CT report. Moderate bilateral hydronephrosis. The esophagus is noted to be normal in caliber throughout its length - Diagnosis Diagnosis: Odynophagia - Plan Plan: Mr. Crane is a very high risk candidate for any invasive procedure. As we are able to visualize the entire esophagus on CT, it is unlikely there is a mass or a stricture we could address that would result in improvement in symp toms. For this reason, the risk of EGD outweighs the benefit in this situation. I agree with aggressive treatment for reflux and would continue those medications indefinitely. Thank you for including me in the care of this gentleman.
--- NOTE | 2020-09-08 15:38 | PROVIDER PROGRESS NOTE ---
Subjective - Prog Note Date Prog Note Date: 09/08/20 - Subjective Pt reports feeling: Improved Subjective: Patient is comfortable sitting in the chair, he he denies fever, cough, shortness of breathing, chest pain. pt report he feel some pain in middle of middle sternal when he swallow but he tolerate puree diet, he ate 80% of his breakfast. we will consult with GI surgeon and followup. Met with patient's son YENNIFER to update pt's medical condition and discussed the care plan. There is a pleural-based mass, although this may be benign, but consider mesothelioma. There are bony metastatic lesion at right posterior fourth rib, thoracic spine, liver lesions, numerous areas of bony sclerosis involving the lumbar spin and the sacrum, bladder outlet obstruction is suspected, and Bilateral hydronephrosis and hydroureter, pt's PSA level was significantly elevated to over 200. Discussed with YENNIFER for possible palliative care and hospice care, at this time, DPNIKOLAS hope pt can be d/c to SNF and followup with his PCP to seek further management options. Current Medications - Current Medications Current Medications: Active Medications Acetaminophen (Tylenol) 650 mg PO Q4HR PRN PRN Reason: Pain 1 to 4 Aspirin (Ecotrin) 81 mg PO DAILY [facility] Last Admin: 09/08/20 08:41 Dose: 81 mg Documented by: Docusate Sodium (Colace 250mg Capsule) 250 - 500 mg PO DAILY [facility] Last Admin: 09/08/20 08:40 Dose: 250 mg Documented by: Enoxaparin Sodium (Lovenox) 40 mg SUBQ DAILY [facility] Last Admin: 09/08/20 08:41 Dose: 40 mg Documented by: Multi-Ingredient Mouthwash/Gargle () 30 ml PO Q4H PRN PRN Reason: Abdominal Pain Multivitamins/Minerals (Theragran M) 1 tab PO DAILYWM [facility] Last Admin: 09/08/20 08:41 Dose: 1 tab Documented by: Ondansetron HCl (Zofran Odt) 4 mg TL Q6HR PRN PRN Reason: Nausea / Vomiting Ondansetron HCl (Zofran Inj) 4 mg IVP Q6HR PRN PRN Reason: Nausea / Vomiting Pantoprazole Sodium (Protonix) 40 mg PO QDAC [facility] Last Admin: 09/08/20 13:39 Dose: 40 mg Documented by: Polyethylene Glycol (Miralax) 17 gm PO DAILY [facility] Last Admin: 09/08/20 08:56 Dose: Not Given Documented by: Senna (Senokot) 8.6 - 17.2 mg PO DAILY [facility] Last Admin: 09/08/20 08:56 Dose: Not Given Documented by: Sertraline HCl (Zoloft) 50 mg PO DAILY [facility] Last Admin: 09/08/20 08:40 Dose: 50 mg Documented by: Sodium Chloride (Normal Saline Flush 0.9%) 10 ml IVP PRN PRN PRN Reason: NEEDED PER PROVIDER ORDERS Sodium Chloride (Normal Saline Flush 0.9%) 10 ml IVP 0100,0900,1700 [facility] Last Admin: 09/08/20 08:56 Dose: 10 ml Documented by: Sodium Phosphate (K-Phos Neutral) 250 mg PO TIDWM [facility] Last Admin: 09/08/20 11:57 Dose: 250 mg Documented by: Tamsulosin HCl (Flomax) 0.4 mg PO HS [facility] Last Admin: 09/07/20 20:50 Dose: 0.4 mg Documented by: Timolol Maleate (Timoptic 0.5% Ophth Drops) 1 drops EACHEYE BID [facility] Last Admin: 09/08/20 13:41 Dose: 1 drops Documented by: Aspirin Chewable [[place] Aspirin] 81 mg PO DAILY 09/06/20 Hydrochlorothiazide 12.5 mg PO DAILY 09/06/20 Dorzolamide HCl/Pf [Dorzolamide 2% Eye Drop] 1 drops EACHEYE BID 09/08/20 Timolol 0.5% Ophth Drops [Timoptic 0.5% Ophth Drops] 1 drops EACHEYE BID 09/08/20 Objective - Vital Signs/Intake & Output Vital Signs: Vital Signs x48h Temp Pulse Resp BP BP Pulse Ox 09/08/20 12:57 36.7 C 69 18 143/64 H 96 09/08/20 07:45 36.7 C 75 20 147/57 H 93 Intake & Output: Intake & Output 09/05/20 09/06/20 09/07/20 09/08/20 23:59 23:59 23:59 23:59 Intake Total 2220 4265 2490 1760 Output Total 2200 825 700 700 Balance 20 3440 1790 1060 - Objective General Appearance: positive: No acute distress, Alert. negative: Lethargic Eyes Bilateral: positive: Normal inspection, PERRL ENT: positive: ENT inspection nml, No signs of dehydration. negative: Purulent nasal drainage, Pharyngeal erythema, Oral lesions, Dry mucous membranes Neck: positive: Nml inspection, Thyroid nml, Trachea midline. negative: Thyromegaly, Tracheal deviation Respiratory: positive: Chest non-tender, No respiratory distress. negative: Wheezes, Rales, Rhonchi Cardiovascular: positive: Regular rate & rhythm, No murmur. negative: Tachycardia, Bradycardia, Systolic murmur, Diastolic murmur Peripheral Pulses: 2+ Radial (R), 2+ Radial (L) Abdomen: positive: Non-tender, Nml bowel sounds, No distention. negative: Tenderness, Guarding, Rebound Back: positive: Nml inspection. negative: CVA tenderness (R), CVA tenderness (L) Skin: positive: Color nml, No rash, Warm, Dry. negative: Cyanosis, Diaphoresis, Pallor Extremities: positive: Non-tender, Nml appearance. negative: Calf tenderness Neurologic/Psychiatric: positive: Sensation nml, Mood/affect nml. negative: Weakness, Sensory loss, Facial droop, Slurred/abnml speech, Depressed mood/affect - Lab Results Fish Bones: 09/08/20 04:50 09/08/20 04:50 Other Labs: Lab Results x24hrs 09/08/20 09/08/20 Range/Units 04:50 04:50 WBC 7.0 (4.8-10.8) x10^3/uL RBC 3.70 L (4.70-6.10) 10^6/uL Hgb 11.8 L (14.0-18.0) g/dL Hct 35.8 L (42.0-52.0) % MCV 96.8 H (80.0-94.0) fL MCH 31.9 H (27.0-31.0) pg MCHC 33.0 (32.0-36.0) g/dL RDW 14.8 (12.0-15.0) % Plt Count 240 (130-450) 10^3/uL MPV 10.4 (7.4-11.4) fL Neut # (Auto) 4.3 (1.5-6.6) 10^3/uL Lymph # (Auto) 1.6 (1.5-3.5) 10^3/uL [place] # (Auto) 0.7 (0.0-1.0) 10^3/uL Eos # (Auto) 0.1 (0.0-0.7) 10^3/uL Baso # (Auto) 0.0 (0.0-0.1) 10^3/uL Absolute Nucleated RBC 0.00 x10^3/uL Nucleated RBC % 0.0 /100WBC Sodium 133 L (135-145) mmol/L Potassium 4.0 (3.5-5.0) mmol/L Chloride 101 (101-111) mmol/L Carbon Dioxide 26 (21-32) mmol/L Anion Gap 6.0 (6-13) BUN 15 (6-20) mg/dL Creatinine 0.5 L (0.6-1.2) mg/dL Estimated GFR (MDRD) 158 (>89) Glucose 119 H (70-100) mg/dL Calcium 7.9 L (8.5-10.3) mg/dL Phosphorus 1.7 L (2.5-4.6) mg/dL Magnesium 1.9 (1.7-2.8) mg/dL Total Bilirubin 0.8 (0.2-1.0) mg/dL AST 32 (10-42) IU/L ALT 29 (10-60) IU/L Alkaline Phosphatase 96 (42-121) IU/L Total Creatine Kinase 217 (22-269) IU/L Total Protein 5.3 L (6.7-8.2) g/dL Albumin 2.4 L (3.2-5.5) g/dL Globulin 2.9 (2.1-4.2) g/dL Albumin/Globulin Ratio 0.8 L (1.0-2.2) ABX Reporting Has patient been on IV antibiotics over the past 48 hours?: No Assessment/Plan - Problem List (1) Altered mental status Impression: 09/08 resolved. pt is return to her baseline. pt is alert and oriented him self and location. 09/07 Patient still present some confused. Patient cannot feed by history of and he needed feeding. CTA of the head was unremarkable for acute finding in the admission. Patient's ammonia level is normal. Pt's PSA is over 200. Patient's dehydration, fall, metastatic disease could contribute pt's confused. At this point, for pt's safety, advise pt DO NOT drive car. [employer] evaluation request is filled for pt. we will discuss with pt's son YENNIFER for care plan, his son will come this afternoon Patient still has some confusion today. Patient's dehydration and metastatic disease could contribute to AMS. CTA of the head and neck did show stenosis in V4 but he does not have any focal deficits to suggest a stroke at this time. TSH within normal limits. Since patient has elevated liver enzyme, we will check an ammonia level. Continue hydration, continue cytogenetics laboratory manager. per manager social report pt is still driving his car. if pt's mental status is not improved, he can not drive any more. (2)dysphagia 09/08 Patient complain of pain at his middle of middle sternal when he swallow. ST evaluation and recommend pt had dysphagia puree diet, and pt tolerate well. consult with GI surgeon and will followup add GI cocktail with PRN and Protonic as well. (3) Rhabdomyolysis Conclusion/Plan: 09-08 resolved 1118, improved, CK is over 400. Patient has stable and good renal function Improved, CK is down to 900. Patient creatinine is normal, will continue intr avenous IV fluid, continue cytogenetics laboratory manager (4) Vertebral artery stenosis Conclusion/Plan: There is 90% stenosis of left vertebral artery at V4. But the patient does not show focal neuro deficit. At this time, do not suspect acute ischemia given his lack of focal deficits. We will continue him on aspirin 81mg daily. Will hold off on statin for time being given the rhabdomyolysis. Will consider MRI of the brain if his mental status does not improve over next 24 hours. (5) Elevated troponin Conclusion/Plan: This is likely demand ischemia. His troponin is >100 but flat, pt is hemodynamic stable now. He reports no chest pain and his EKG does not suggest ischemia. We will monitor on telemetry. ECHO reveals unremarkable. (6) Mesothelioma (pleural) Conclusion/Plan: we will discuss with pt's son for the care plan when he come on tomorrow at bout CT findings. CT of the chest was concerning for possible mesothelioma. This may be the source of his likely metastatic disease. He will need outpatient follow up with oncology. (7) Metastatic disease Conclusion/Plan: 1118, PSA test is over 200,Patient had multiple location for bone lesion, liver lesion, also likely patient has mesothelioma per image study. we will discuss with pt's son DPOA for care plan, his son will come this afternoon will discuss with pt's son for nex care plan, It appears that he has metastatic disease and given the CT of the chest, concern is for mesothelioma. He will need outpatient follow-up with oncology for further work-up and treatment. (8) BPH (benign prostatic hyperplasia) Conclusion/Plan: 1117, patient's PSA is over 200, it is indicated patient may have prostate cancer as his primary lesion. Patient also had multiple locations of bone lesion This is causing bladder outlet obstruction. We will start him on Flomax. A Ross catheter has been placed. (9) Bladder outlet obstruction Conclusion/Plan: 09-08, we will try to remove Ross once to see if pt can urine by himself, otherwise we will put Ross back, continue Flomax 1118, we will continue to keep his Ross in the hospital right now. CT of the abdomen pelvis did reveal moderate bilateral hydronephrosis. CT of the abdomen pelvis did reveal moderate bilateral hydronephrosis. This is likely due to BPH. A Ross catheter has been placed. (10)elevated PSA 09/08 patient's PSA is over 200, discussed the result with pt's son YENNIFER, at this point, pt's son hope pt can be d/c to SNF and followup with his PCP for further management. Qualifiers: Altered mental status type: disorientation Qualified Code(s): R41.0 - Disorientation, unspecified
[2020-09-08 21:09] LABS: C. PNEUMONIAE- RESP PCR PANEL NOT DETECTED
[2020-09-08] MEDS: TAMSULOSIN 0.4 MG CAPSULE PO SCH (21:21)
[2020-09-09] MEDS: SODIUM CHLORIDE FLUSH 0.9% 10 ML SYRINGE IVP SCH ×2 (00:11→10:52)
[2020-09-09 05:40] LABS: BASOPHILS % (AUTO) 0.6 %; HGB - HEMOGLOBIN 12.7 g/dL (14.0-18.0); LYMPHOCYTES % (AUTO) 28.2 %; MEAN CORPUSCULAR HEMOGLOBIN 32.1 pg (27.0-31.0); MEAN CORPUSCULAR HGB CONC 33.7 g/dL (32.0-36.0); MEAN CORPUSCULAR VOLUME 95.2 fL (80.0-94.0); MEAN PLATELET VOLUME 10.6 fL (7.4-11.4); MONOCYTES % (AUTO) 9.7 %; NEUTROPHILS % (AUTO) 51.8 %; PLT - PLATELET COUNT 274 10^3/uL (130-450); RED BLOOD COUNT 3.96 10^6/uL (4.70-6.10); RED CELL DISTRIBUTION WIDTH 14.6 % (12.0-15.0); WHITE BLOOD COUNT 7.8 x10^3/uL (4.8-10.8)
[2020-09-09 05:50] LABS: ABNORMAL LYMPHS % (MANUAL) 0 %; BAND NEUTROPHILS % (MANUAL) 0 %
[2020-09-09 05:53] LABS: ALBUMIN 2.5 g/dL (3.2-5.5); ALBUMIN/GLOBULIN RATIO 0.8 (1.0-2.2); BILIRUBIN,TOTAL 0.7 mg/dL (0.2-1.0); CALCIUM 7.9 mg/dL (8.5-10.3); CREATININE 0.5 mg/dL (0.6-1.2); MAGNESIUM 1.9 mg/dL (1.7-2.8); PHOSPHORUS 2.1 mg/dL (2.5-4.6); TOTAL PROTEIN 5.6 g/dL (6.7-8.2)
[2020-09-09 06:06] LABS: DIFFERENTIAL COMMENT MANUAL DIFFERENTIAL; LYMPHOCYTES % (MANUAL) 26 %; MONOCYTES # (MANUAL) 0.5 10^3/uL (0.0-1.0); PLATELET ESTIMATE, MANUAL NORMAL (130-450,000) (NORMAL); RBC MORPHOLOGY (MULTIPLE) NORMAL APPEARANCE (NORMAL)
[2020-09-09] MEDS: PANTOPRAZOLE 40 MG TABLET PO SCH (06:47)
[2020-09-09] MEDS ORDERED: GI COCKTAIL 120 ML BOTTLE PO SCH (07:39)
--- NOTE | 2020-09-09 08:48 | Discharge Plan ---
"Discharge Plan for SNF / [facility] - Discharge Plan And Transition Orders Problem Reviewed?: Yes Disposition: 03 SNF DC/Xfer Condition: Poor Allergies and Adverse Reactions: Allergies Allergy/AdvReac Type Severity Reaction Status Date / Time No Known Drug Allergies Allergy Verified 09/05/20 15:56 Health Concerns: weakness and fall, metastatic disease, BPH/bladder outlet obstruction/elevated PSA Plan of Treatment: continue PT/OT/ST training and fall precaution in SNF. pt was found to have multiple locations of bony lesion, liver lesion, image study also suggest mesothelioma, BPH with significantly elevated PSA. pt's DPOA would like to have out-pt specialist consults for pt, pt may be referral to urologist, oncologist and printer machine. pt has hoang catheter now for his bladder outlet obstruction, followup with urologist, pt may follow up with palliative care as well. Care Goals: stabilization and improvement of pt's medical conditions Assessment: discussed the care plan with pt and pt's son, they understood. - SNF / [facility] Transition Orders Admit to (Facility): [facility] Under the care of (Name): Medical provider of [facility] Discharge Diagnosis: AMS, GERD/esophagitis, Rhabdomyolysis, vertebral artery stenosis, elevated tropo yuki, mesothelioma(pleural), metastatic disease, BPH, bladder outlet obstruction, elevated PSA Medicare Certification Statement: I certify that [facility] alf care is medically necessary on a continuing basis for any of the conditions for which she/he is receiving care during hospitalization. Notify PCP of admission and forward orders to primary provider for signature. Weight on admission and: Daily Call PCP immediately if weight increases by: 2 kg Other Notification Orders: Call PCP immediately if patient develops dyspnea, chest pain/tightness or edema. House Bowel Program: Yes Additional Bowel Program Orders: If no BM after 2 days, nurse may give M.O.M. 30ml PO PRN and/or ducolax Supp 1 RI and/or SHAYLA 250mg P.O., and/or senna 1-2 tabs PO. On day 3 nurse may give repeat above order until residents constipation is resolved. Annual Influenza Vaccine (between Jun 21 and January 18): Yes Two-step PPD per [facility] [id number] or approved exception documents: Yes Treatments & Other Orders: continue PT/OT/ST training and fall precaution in SNF. pt was found to have multiple locations of bony lesion, liver lesion, image study also suggest mesothelioma, BPH with significantly elevated PSA. pt's DPOA would like to have out-pt specialist consults for pt, pt may be referral to urologist, oncologist and printer machine. pt has hoang catheter now for his bladder outlet obstruction, followup with urologist, pt may follow up with palliative care as well. Medication Orders: PLEASE REFER TO THE DISCHARGE MEDICATION LIST. Insulin Orders?: No - Medications New Prescriptions: Tamsulosin [Flomax] 0.4 mg PO HS #30 capsule Gi Cocktail 30 ml PO Q4H PRN #1 bottle PRN Reason: Abdominal Pain Pantoprazole [Protonix] 40 mg PO QDAC #30 tablet Multivitamin W/Minerals [Theragran M] 1 tab PO DAILYWM #30 tablet - Diet Type: Geriatric Texture: Puree Liquids: Thin May have monthly special meal: Yes - Therapies | Activity Therapy: Evaluation | Treat if indicated: PT, OT, Swallowing / ST Rehabilitation Potential: Maximize functional status Activity: Activity as Tolerated"
[2020-09-09] MEDS ORDERED: amLODIPine 5 MG TABLET PO SCH (09:00)
--- NOTE | 2020-09-09 09:11 | DISCHARGE SUMMARY ---
"Discharge Summary Admit Date: 09/05/20 Discharge Date: 09/09/20 Discharging Provider: Barrie Chase Primary Care Provider: Mitesh Wilkerson Condition at Discharge: Poor Discharge Disposition: SNF DC/Xfer Discharge Facility Name: [facility] - DIAGNOSES Discharge Diagnoses with Status of Each Condition: (1) Altered mental status resolved as pt's baseline. (2)esophagitis great improved as pt report. pt is prescribed PPI and GI cocktail as needed. Patient was counseled by GI surgeon but the patient has no procedure of EGD per surgeon. (3) Rhabdomyolysis resolved (4) Vertebral artery stenosis stable. pt has no focal neurological deficits. CTA of head Was unremarkable for acute Intracranial finding. There is 90% stenosis of left vertebral artery at V4. continue him on aspirin 81mg daily. Patient may follow-up with neurologist as outpatient as needed. (5) Elevated troponin pt has no acute OH, ECHO reveals unremarkable. pt might have the demand ischemia. His troponin is >100 but flat, pt is hemodynamic stable now. He reports no chest pain and his EKG does not suggest ischemia. (6) Mesothelioma (pleural) CT of the chest was concerning for possible mesothelioma. This may be the source of his likely metastatic disease. He may follow up with oncology and valve mechanic as out-pt.pt's son YENNIFER want his father go to SNF, then let pt go to [facility] nurse [facility], and he will discuss pt's PCP or SNF provider for further management. (7) Metastatic disease 1118, PSA test is over 200,Patient had multiple location for bone lesion, liver lesion, also likely patient has mesothelioma per image study. pt's son YENNIFER want his father go to SNF, then let pt go to [facility] nurse [facility], and he will discuss pt's PCP or SNF provider for further management. (8) BPH (benign prostatic hyperplasia) pt is prescribed Flomax. we attempt to remove the Hoang but pt still can not urine, then A Hoang catheter has been placed. Followup urologist as out pt. (9) Bladder outlet obstruction pt still need Hoang catheter, Followup urologist as out pt. (10)elevated PSA 09/08 patient's PSA is over 200, discussed the result with pt's son YENNIFER. pt's son hope pt can be d/c to SNF and followup with his PCP for further management. (11)hyponatremia Na is 129 today. pt is asymptomatic, pt has hx of hyponatremia, pt may have another blood work BMP at SNF, and followup with PCP and SNF provider. - HPI History of Present Illness: refer from Dr. Goyal's HPI on 09/05/2020 This is a 85-year-old male with a past medical history of glaucoma, and hypertension who presents today to the hospital after he was found down at home by his neighbors. Most of the history is obtained from emergency department provider and the EMR as patient is a poor historian due to his altered mental status. The patient states he is here at the hospital because he is disoriented. He does not recall what has happened over the past couple of days. He believes he is in [facility]. He does not know that he is in the hospital or why he is here. He reports no chest pain, dyspnea, abdominal pain, nausea, vomiting. He does report feeling thirsty. He denies any difficulty urinating. Complains of no muscle or back pain. He denies any prior history of coronary artery disease, strokes, cancer. The patient was reportedly found down at home by his neighbors with an unknown timeframe. The patient does reportedly live alone. In the emergency department, he was found to be afebrile temperature of 36.6 C. Heart rate was 80. Blood pressure is 149/99. He was not tachypneic and saturating well on room air. Labs are significant for white count 11.7 with a left shift. Sodium is 132. Bicarbonate is 20 and anion gap is 20. BUN is elevated at 46. Creatinine is 0.9. AST is slightly elevated at 81. His CK is over 2000. Initial troponin is over 100 as well. Urinalysis reveals large occult blood and 11-25 RBCs. EKG shows sinus rhythm with slightly prolonged QTC. No obvious ischemic changes. He underwent a CTA of the head and neck which was concerning for 90% stenosis at V4. He also notes CT of the chest and abdomen pelvis which was concerning for possible mesothelioma and metastatic disease. Given the above findings, medicine was consulted for admission. I did discuss goals of care the patient and he believes he would want to be a DNR. The patient does have a neighbor named Masha Sabillon who is his emergency contact. She called the emergency department to tell them that the patient has 3 sons on the [facility]. She will be contacting them to have them call the hospital. The patient does confirm that he has 3 [place] with his eldest son named, Rex. - CONSULTS | PROCEDURES Consultations: Dr. Gordillo Procedures: no procedure - HOSPITAL COURSE Hospital Course: Patient was admitted for evaluation of patient's confused, mental status change. Imaging studies show patient no acute fracture, no stroke in CAT scan of brain.Patient Was found to have Rhabdomyolysis and dehydration. Image studies suggest pt has metastatic disease,Multiple locations of bone lesion, liver lesion, mesothelioma, And significantly elevated PSA. Patient also was found to have bladder urinary obstruction, patient was give Hoang catheter. Later patient complaint mediastinal discomfortable when he swallow food. General surgeon was consulted but no procedure for patient. surgeon believe it is unlikely there is a mass or a stricture by review of CAT of chest, we could address that would result in improvement in symptoms. For this reason, the risk of EGD outweighs the benefit in this situation. she agree with aggressive treatment for reflux. Patient is prescribed Protonix and GI cocktail as needed. Patient's son, YENNIFER declined to have palliative or hospice care at hospital, but would like patient be discharged to SNF, and to follow-up with PCP for further management. Patient had physical therapist and occupational therapist evaluation treatment, patient was recommend to discharge to SNF for further training. Patient was discharged to [facility] SNF - ALLERGIES Allergies/Adverse Reactions: Allergies Allergy/AdvReac Type Severity Reaction Status Date / Time No Known Drug Allergies Allergy Verified 09/05/20 15:56 - MEDICATIONS Home Medications: Ambulatory Orders Medication Instructions Recorded Confirmed Aspirin Chewable [[place] 81 mg PO DAILY 09/06/20 09/06/20 Aspirin] Dorzolamide HCl/Pf [Dorzolamide 2% 1 drops EACHEYE BID 09/08/20 09/08/20 Eye Drop] Timolol 0.5% Ophth Drops [Timoptic 1 drops EACHEYE BID 09/08/20 09/08/20 0.5% Ophth Drops] Gi Cocktail 30 ml PO Q4H PRN #1 bottle 09/09/20 Multivitamin W/Minerals [Theragran 1 tab PO DAILYWM #30 tablet 09/09/20 M] Pantoprazole [Protonix] 40 mg PO QDAC #30 tablet 09/09/20 Tamsulosin [Flomax] 0.4 mg PO HS #30 capsule 09/09/20 - PHYSICAL EXAM AT DISCHARGE General Appearance: positive: No acute distress, Alert. negative: Lethargic Eyes Bilateral: positive: Normal inspection, PERRL, No lid inflammation ENT: positive: ENT inspection nml, No signs of dehydration. negative: Purulent nasal drainage Neck: positive: Nml inspection, Thyroid nml, Trachea midline. negative: Thyromegaly, Tracheal deviation Respiratory: positive: Chest non-tender, No respiratory distress, Breath sounds nml. negative: Wheezes, Rales, Rhonchi Cardiovascular: positive: Regular rate & rhythm, No murmur. negative: Tachycardia, Bradycardia, Systolic murmur, Diastolic murmur Abdomen: positive: Non-tender, Nml bowel sounds, No distention. negative: Tenderness, Guarding, Rebound Back: positive: Nml inspection Skin: positive: Color nml, Warm, Dry. negative: Cyanosis, Diaphoresis, Pallor Extremities: positive: Non-tender, Nml appearance. negative: Calf tenderness Neurologic/Psychiatric: positive: Sensation nml, Mood/affect nml. negative: Weakness, Sensory loss, Facial droop, Slurred/abnml speech, Depressed mood/affect - LABS Result Diagrams: 09/09/20 05:14 09/09/20 05:14 - FOLLOW UP Follow Up: continue PT/OT/ST training and fall precaution in SNF. pt was found to have multiple locations of bony lesion, liver lesion, image study also suggest mes othelioma, BPH with significantly elevated PSA. pt's DPOA would like to have out-pt specialist consults for pt, pt may be referral to urologist, oncologist and valve mechanic. pt has hoang catheter now for his bladder outlet obstruction, followup with urologist, pt may follow up with palliative care as well. - TIME SPENT Time Spent in Discharge (Minutes): 30"
[2020-09-09] MEDS: MULTIVITAMIN W/MINERALS TABLET PO SCH (10:30)
[2020-09-09] MEDS: SERTRALINE 50 MG TABLET PO SCH (10:30)
[2020-09-09] MEDS: DOCUSATE SODIUM 250 MG CAPSULE PO SCH (10:30)
[2020-09-09] MEDS: NEUTRA-PHOS 250 MG TABLET PO SCH (10:30)
[2020-09-09] MEDS: ASPIRIN EC 81 MG TABLET PO SCH (10:30)
[2020-09-09] MEDS: polyethylene glycoL 3350 17 GM PACKET PO SCH (10:31)
[2020-09-09] MEDS: TIMOLOL 0.5% OPHTH DROPS EACHEYE SCH (10:31)
[2020-09-09] MEDS: SENNA 8.6 MG TABLET PO SCH (10:52)
[2020-09-09] MEDS: ENOXAPARIN 40 MG/0.4 ML SYRINGE SUBQ SCH (10:52)
[2020-09-09 10:58] VITALS: BP 136/70
== END 2020-09-09 11:00 | DRG 641 ==
LOC: EDUNIT# → ED 15:46 → MS2 18:46
PROVIDERS: ADMIT Specialist; ATTEND Nurse Practitioner Gerontology
DX: E86.0 Dehydration (principal); R41.0 Disorientation, unspecified; C45.0 Mesothelioma of pleura; C78.7 Secondary malignant neoplasm of liver and intrahepatic bile duct; C79.51 Secondary malignant neoplasm of bone; N13.39 Other hydronephrosis; M62.82 Rhabdomyolysis; R41.82 Altered mental status, unspecified; E87.1 Hypo-osmolality and hyponatremia; K21.00 Gastro-esophageal reflux disease with esophagitis, without bleeding; N40.1 Benign prostatic hyperplasia with lower urinary tract symptoms; N13.8 Other obstructive and reflux uropathy; R77.8 Other specified abnormalities of plasma proteins; N13.9 Obstructive and reflux uropathy, unspecified; R97.20 Elevated prostate specific antigen [PSA]; Z66 Do not resuscitate; H40.9 Unspecified glaucoma; I10 Essential (primary) hypertension; S70.211A Abrasion, right hip, initial encounter; I65.02 Occlusion and stenosis of left vertebral artery; R94.2 Abnormal results of pulmonary function studies; F32.9 Major depressive disorder, single episode, unspecified; F41.9 Anxiety disorder, unspecified; R94.8 Abnormal results of function studies of other organs and systems; R93.2 Abnormal findings on diagnostic imaging of liver and biliary tract; N13.30 Unspecified hydronephrosis; S70.212A Abrasion, left hip, initial encounter; X58.XXXD Exposure to other specified factors, subsequent encounter; X58.XXXA Exposure to other specified factors, initial encounter; Z91.81 History of falling; R29.714 NIHSS score 14; Z79.899 Other long term (current) drug therapy; Z86.14 Personal history of Methicillin resistant Staphylococcus aureus infection; Z87.891 Personal history of nicotine dependence
CPT/HCPCS: 36415; 51702; 70496; 70498; 71260; 74177; 80048; 80053; 81001; 82140; 82550; 83690; 83735; 83880; 84100; 84443; 84484; 85025; 87631; 92526; 92610; 93005; 93306; 96360; 97161; 97166; 97530; 97535; 99281; 99285; A9270; G0103; J1650; J7120; Q9967; 0202U; 80320; 81003; 82272; 84153; 87086

== ENCOUNTER 2021-01-07 22:34 | Outpatient (CLI) | payer MEDICARE, OTHER | END 2021-01-07 22:35 | disposition critical access hospital (66) | LOC: EMS 22:34 | PROVIDERS: ATTEND Emergency Medicine | DX: R33.9 Retention of urine, unspecified (principal); Z96.0 Presence of urogenital implants | CPT/HCPCS: A0425; A0429 ==

== ENCOUNTER 2021-01-07 22:49 | Emergency (ER) | payer MEDICARE, OTHER ==
--- NOTE | 2021-01-07 23:10 | ED Physician Documentation ---
PD HPI MALE - Stated complaint Stated Complaint: CATHETER DISLODGEMENT, PELVIS PAIN - Chief complaint Chief Complaint: General - History obtained from History obtained from: Patient, EMS, Caregiver (from SNF) - History of Present Illness Timing - onset: Today (little output from hoang the past several hours and he has fullness and pain in suprapubic area. Concern for blocked hoang. No one there apparently can irrigate the hoang.) Associated symptoms: Indwelling catheter, Hoang problem (not draining the past several hours.) Similar symptoms before: Has not had sx before Recently seen: Not recently seen Review of Systems Constitutional: denies: Fever, Chills Nose: denies: Rhinorrhea / runny nose, Congestion Throat: denies: Sore throat Respiratory: denies: Cough : reports: Unable to Void (hoang not draining) Musculoskeletal: denies: Back pain PD PAST MEDICAL HISTORY - Past Medical History Cardiovascular: None Respiratory: None Endocrine/Autoimmune: None GI: None : None HEENT: Glaucoma Psych: Depression, Anxiety Musculoskeletal: None Derm: None - Past Surgical History Past Surgical History: Yes General: Colonoscopy HEENT: Cataracts, Tonsil/Adenoidectomy - Present Medications Home Medications: Ambulatory Orders Medication Instructions Recorded Confirmed Aspirin Chewable [[place] 81 mg PO DAILY 09/06/20 01/07/21 Aspirin] Dorzolamide HCl/Pf [Dorzolamide 2% 1 drops EACHEYE BID 09/08/20 01/07/21 Eye Drop] Timolol 0.5% Ophth Drops [Timoptic 1 drops EACHEYE BID 09/08/20 01/07/21 0.5% Ophth Drops] Multivitamin W/Minerals [Theragran 1 tab PO DAILYWM #30 tablet 09/09/20 01/07/21 M] Pantoprazole [Protonix] 40 mg PO QDAC #30 tablet 09/09/20 01/07/21 Tamsulosin [Flomax] 0.4 mg PO HS #30 capsule 09/09/20 01/07/21 Diclofenac Sodium [Voltaren 1 applic PRN 01/08/21 Arthritis Pain] Enzalutamide [Xtandi] 160 mg PO DAILY PM 01/08/21 01/08/21 cephALEXin [Keflex] 500 mg PO TID #20 cap 01/08/21 - Allergies Allergies/Adverse Reactions: Allergies Allergy/AdvReac Type Severity Reaction Status Date / Time No Known Drug Allergies Allergy Verified 01/07/21 23:03 - Living Situation Living Situation: reports: Alone Living Arrangement: reports: Assisted living - Social History Does the pt smoke?: No Smoking Status: Former smoker Does the pt drink ETOH?: No Does the pt have substance abuse?: No - Immunizations Immunizations are current?: Yes PD ED PE NORMAL - Vitals Vital signs reviewed: Yes - General General: No acute distress, Well developed/nourished. No: Alert and oriented X 3 (person, but not sure of place and does not know month.) - HEENT HEENT: Pharynx benign - Neck Neck: Supple, no meningeal sign, No adenopathy - Cardiac Cardiac: RRR, No murmur - Respiratory Respiratory: Clear bilaterally - Abdomen Abdomen: Normal bowel sounds, Soft, Non distended, No organomegaly, Other (fullness with tender in suprapubic area. ) - Male Male : Other (hoang in place with some discharge noted around the hoang at meatus. Hoang bag empty. ) - Back Back: No CVA TTP - Derm Derm: Normal color, Warm and dry - Extremities Extremities: No edema, No calf tenderness / cord - Neuro Neuro: No motor deficit, No sensory deficit Eye Opening: Spontaneous Motor: Obeys Commands Results - Vitals Vitals: Vital Signs - 24 hr 01/07/21 01/08/21 01/08/21 22:59 01:10 01:35 Temperature 36.4 C L 36.6 C Heart Rate 101 H 91 91 Respiratory 18 16 16 Rate Blood Pressure 161/84 H 138/82 H 138/82 H O2 Saturation 100 99 100 Oxygen O2 Source Room air - Labs Labs: Laboratory Tests 01/07/21 01/07/21 01/07/21 23:40 23:48 23:48 WBC 11.5 H RBC 3.98 L Hgb 13.2 L Hct 38.8 L MCV 97.5 H MCH 33.2 H MCHC 34.0 RDW 14.7 Plt Count 374 MPV 10.0 Neut # (Auto) 9.0 H Lymph # (Auto) 1.3 L [place] # (Auto) 1.0 Eos # (Auto) 0.1 Baso # (Auto) 0.1 Absolute Nucleated RBC 0.00 Nucleated RBC % 0.0 Sodium 130 L Potassium 3.9 Chloride 94 L Carbon Dioxide 23 Anion Gap 13.0 BUN 20 Creatinine 0.8 Estimated GFR (MDRD) 92 Glucose 134 H Calcium 9.2 Urine Color YELLOW Urine Clarity SL. CLOUDY Urine pH 7.0 Ur Specific [place] 1.020 Urine Protein NEGATIVE Urine Glucose (UA) NEGATIVE Urine Ketones NEGATIVE Urine Occult Blood SMALL H Urine Nitrite POSITIVE H Urine Bilirubin NEGATIVE Urine Urobilinogen 0.2 (NORMAL) Ur Leukocyte Esterase MODERATE H Urine RBC 0-5 Urine WBC >25 H Ur Squamous Epith Cells NONE SEEN Urine Bacteria Many H Ur Microscopic Review INDICATED Urine Culture Comments INDICATED PD MEDICAL DECISION MAKING - ED course Complexity details: reviewed results (apparent UTI as presumed cause for hoang clogging. Does not appear ill/pyelo. ), considered differential (bladder scanner showing full bladder. Nursing tried bladder irrigation without improvement in outflow. Hoang replaced and good urine output with patient feeling much better. ), d/w patient Departure - Departure Disposition: 01 Home, Self Care Clinical Impression: Malfunction of Hoang catheter Qualifiers: Encounter type: initial encounter Qualified Code(s): T83.011A - Breakdown (mechanical) of indwelling urethral catheter, initial encounter UTI (urinary tract infection) Qualifiers: Urinary tract infection type: catheter-associated UTI Indwelling urinary catheter type: indwelling urethral catheter Encounter type: initial encounter Qualified Code(s): T83.511A - Infection and inflammatory reaction due to indwelling urethral catheter, initial encounter Condition: Stable Record reviewed to determine appropriate education?: Yes Instructions: ED UTI Cystitis Male Prescriptions: cephALEXin [Keflex] 500 mg PO TID #20 cap Comments: The new Hoang catheter is draining appropriately. You do have signs of a urinary tract infection based on your urine test and that may have contributed to the clogging of the Hoang catheter. Cephalexin 3 times a day for a week. The urine culture will result in a couple of days and we may need to modify antibiotics based off of that. Continue usual medications and catheter care. Discharge Date/Time: 01/08/21 01:37
[2021-01-07 23:51] LABS: BILIRUBIN,URINE NEGATIVE (NEGATIVE); GLUCOSE, URINE (UA) NEGATIVE (NEGATIVE); KETONES,URINE (UA) NEGATIVE (NEGATIVE); LEUKOCYTE ESTERASE, URINE MODERATE (NEGATIVE); NITRITE,URINE POSITIVE (NEGATIVE); OCCULT BLOOD,URINE SMALL (NEGATIVE); PROTEIN,URINE NEGATIVE (NEGATIVE); UROBILINOGEN,URINE 0.2 (NORMAL) E.U./dL (NORMAL)
[2021-01-07 23:52] LABS: CLARITY,URINE SL. CLOUDY (CLEAR)
[2021-01-07 23:55] LABS: BASOPHILS # (AUTO) 0.1 10^3/uL (0.0-0.1); BASOPHILS % (AUTO) 0.5 %; EOSINOPHILS # (AUTO) 0.1 10^3/uL (0.0-0.7); HCT - HEMATOCRIT 38.8 % (42.0-52.0); HGB - HEMOGLOBIN 13.2 g/dL (14.0-18.0); LYMPHOCYTES # (AUTO) 1.3 10^3/uL (1.5-3.5); LYMPHOCYTES % (AUTO) 11.1 %; MEAN CORPUSCULAR HEMOGLOBIN 33.2 pg (27.0-31.0); MEAN CORPUSCULAR VOLUME 97.5 fL (80.0-94.0); PLT - PLATELET COUNT 374 10^3/uL (130-450); RED BLOOD COUNT 3.98 10^6/uL (4.70-6.10); RED CELL DISTRIBUTION WIDTH 14.7 % (12.0-15.0); WHITE BLOOD COUNT 11.5 x10^3/uL (4.8-10.8)
[2021-01-07 23:56] LABS: BACTERIA,URINE Many /HPF (None Seen); RBC,URINE 0-5 /HPF (0-5); SQUAMOUS EPITHELIAL CELL,UR NONE SEEN (<= Few); WBC,URINE >25 /HPF (0-3)
[2021-01-08 00:01] LABS: CALCIUM 9.2 mg/dL (8.5-10.3); CREATININE 0.8 mg/dL (0.6-1.2); POTASSIUM 3.9 mmol/L (3.5-5.0)
[2021-01-08] MEDS ORDERED: cefTRIAXone 1 GM VIAL IM STA (00:01)
[2021-01-08] MEDS ORDERED: LIDOCAINE 1% 2 ML VIAL MC ONE (00:01)
[2021-01-08 01:10] VITALS: BP 138/82
== END 2021-01-08 01:37 | disposition home or self-care (01) ==
LOC: EDUNIT# → ED 22:49
DX: T83.098A Other mechanical complication of other urinary catheter, initial encounter (principal); T83.511A Infection and inflammatory reaction due to indwelling urethral catheter, initial encounter; N39.0 Urinary tract infection, site not specified; Y84.6 Urinary catheterization as the cause of abnormal reaction of the patient, or of later complication, without mention of misadventure at the time of the procedure; Z79.82 Long term (current) use of aspirin; Z87.891 Personal history of nicotine dependence
CPT/HCPCS: 36415; 51700; 51798; 80048; 81001; 81003; 85025; 87077; 87086; 87181; 99283

== ENCOUNTER 2021-01-08 01:22 | Outpatient (CLI) | payer MEDICARE, OTHER | END 2021-01-08 01:23 | disposition home or self-care (01) | LOC: EMS 01:22 | PROVIDERS: ATTEND Emergency Medicine | DX: F03.90 Unspecified dementia, unspecified severity, without behavioral disturbance, psychotic disturbance, mood disturbance, and anxiety (principal) | CPT/HCPCS: A0425; A0428 ==

== ENCOUNTER 2021-01-16 10:40 | Outpatient (CLI) | payer MEDICARE, OTHER ==
--- NOTE | 2021-01-16 16:11 | CONSULTATION NOTE ---
Palliative Care Consultation - Referral Referring Provider: TOÑO Peter Time of Visit: [phone] Referral setting: Assisted living Referral Reason: Metastatic Prostate Cancer/Debility/Memory Loss - Information Sources Records reviewed: Previous records reviewed History/Review of Systems obtained from: Patient, Nursing Exam limitations: Clinical condition (STM impairment) - History of Present Illness Brief History of Present Illness: This is an 85-year-old gentleman who was seen and evaluated today at [facility] for initial palliative care consultation due to metastatic prostate cancer, debility, and weight loss. The patient was admitted to [facility] 09/05-09/09/2020 after he sustained a fall and developed rhabdomyolysis. Imaging was obtained and he was found to have metastatic disease with an elevated PSA of 208, hyponatremia, and questionable mesothelioma on CT of his chest. It appears that his metastatic disease from prostate cancer is to the bone, lungs, and liver. After his course at [facility] he was transferred to [facility] in [place] on 09/09/2020 until December 09, 2020 when he transferred to [facility]. The patient denies a prior history of prostate cancer. He was begun on Lupron injections 10/10/[address] followed by Dr. Chase at [facility]. He was started on enzalutamide 11/18/2020. He was evaluated by his dentist on 12/22/2020 to begin Xgeva. The patient denies complaints of pain. Due to his underlying cognitive impairment is difficult to appreciate with his prior functional status was prior to his admission to the hospital in August 2020. He denies any change in urinary stream or hematuria prior to his presentation to the hospital. He has subsequently developed bladder outlet syndrome and has a chronic indwelling Ross catheter. He is being followed by home health nursing for wound management to his left hip and for Ross catheter management. He denies having a urologist. Earlier this month he required evaluation at the emergency department due to a clogged Ross catheter and was found to have Proteus mirabilis greater than 100,000 CFU per mL and was treated with a 7-day course of Keflex. He denies flank pain or suprapubic pain. He is also being followed by home health physical therapy. Upon review of records he has refused physical therapy this month due to fatigue. Staff report in the last week he has been getting out of his room more regularly to attend meals. He often forgets that he enjoys leaving his room to attending meals in the dining ramachandran and requires repetitive encouragement. The patient has had an unintentional weight loss. He reports that he is weighed approximately 160 pounds most of his adult life. His weight in August 2020 was 137.5 pounds. His last weight on December 29 was 129 pounds. He denies early satiety or change in taste. He previously was on a modified diet due to reports of dysphagia however, this has subsequently resolved per his report. He reports that he has a general decline in appetite. He typically only consumes lunch or dinner he has never been one to consume breakfast. He does have a past medical history of depression was previously on Zoloft and Zyprexa. He presently denies depressive symptoms on evaluation today. He does have a history of hyponatremia with his last sodium level reported at 130 on January 07. Staff report that he consumes a large amount of water specifically when taking his medications and they are often refilling his glasses in his room. The patient is seen in his wheelchair after being assisted with dressing by caregiving staff. Well groomed and no evidence of acute distress. Medical/Surgical History - Past Medical History Cardiovascular: reports: Hypertension Respiratory: reports: None Neuro: Dementia Endocrine/Autoimmune: reports: None GI: reports: GERD : reports: Benign prostate hypertrophy, Indwelling catheter, Other (Prostate Cancer 08/2020) HEENT: reports: Glaucoma Psych: reports: Depression, Anxiety Musculoskeletal: reports: None Derm: reports: Other (Actinic Keratosis) MRSA Hx?: No Other Past Medical History: Erectile Dysfunction - Past Surgical History General: reports: Colonoscopy HEENT: reports: Cataracts, Tonsil/Adenoidectomy - Substance History Use: Uses substance without health or social issues: NONE (Former tobacco abuse , quit 25 years ago) Social History - Living Situation Living arrangement: Assisted living Support System: The patient is . He served in the [employer] for 30 years and retired as a master chief dunn officer. 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 His approximately 5 years ago after being together for 43 years. He and his met at the [employer] [facility]. He has 3 children, 1 son and 2 daughters. All of his children reside on the [facility]. The patient has fond memories of traveling the globe due to his job. His favorite place was [facility]. He moved into [facility] assisted living after residing independently in November 2020. His son Rex, is his DPOA with contact number [phone]. Family History - Family History Family History: Mother: , Father: Family History Comment/Other: Noncontributory Medications/Allergies - Medications Home Medications: Ambulatory Orders Medication Instructions Recorded Confirmed Aspirin Chewable [[place] Edgar 81 mg PO DAILY 09/06/20 01/16/21 Aspirin] Dorzolamide HCl/Pf [Dorzolamide 2% 1 drops EACHEYE BID 09/08/20 01/16/21 Eye Drop] Timolol 0.5% Ophth Drops [Timoptic 1 drops EACHEYE BID 09/08/20 01/16/21 0.5% Ophth Drops] Multivitamin W/Minerals [Theragran 1 tab PO DAILYWM #30 tablet 09/09/20 01/16/21 M] Pantoprazole [Protonix] 40 mg PO QDAC #30 tablet 09/09/20 01/16/21 Tamsulosin [Flomax] 0.4 mg PO HS #30 capsule 09/09/20 01/16/21 Diclofenac Sodium [Voltaren 1 applic PRN 01/08/21 Arthritis Pain] Enzalutamide [Xtandi] 160 mg PO DAILY PM 01/08/21 01/16/21 Probiotic Capsule 2 cap PO BID 01/16/21 - Allergies Allergies/Adverse Reactions: Allergies Allergy/AdvReac Type Severity Reaction Status Date / Time No Known Drug Allergies Allergy Verified 01/07/21 23:03 Review of Systems - Constitutional Constitutional: reports: Fatigue, Poor appetite, Weight loss (present weight 129lb (From August 2020 8.5lb weight loss)). denies: Fever - Eyes Eyes: reports: Corrective lenses (for reading) - Ears, Nose & Throat Ears, Nose & Throat: reports: Hearing loss, Dentures. denies: Hearing aids - Cardiovascular Cardiovascular: denies: Chest pain, Edema, Lightheadedness - Respiratory Respiratory: denies: Cough, Other (cough during meals) - Gastrointestinal Gastrointestinal: reports: Poor appetite. denies: Abdominal pain, Constipation (reports bowel movement every 2 days), Nausea, Vomiting, Early satiety - Genitourinary Genitourinary: reports: Other (Ross catheter in place). denies: Hematuria, Urethral discharge - Musculoskeletal Musculoskeletal: reports: Assistive devices, Transfer issues. denies: Joint pain - Integumentary Integumentary: reports: Other (left hip wound followed by nursing) - Neurological Neurological: reports: General weakness, Memory problems (patient perceives his memory problems as due to age and does not perceive them to be a problem) - Psychiatric Psychiatric: reports: Depression - Endocrine Endocrine: denies: Diabetes type 2 - Hematologic/Lymphatic Hematologic/Lymph: denies: Recurrent infections - All Other Systems All Other Systems: reports: Reviewed and negative Physical Exam - Vital Signs Temperature: 36.5 C Pulse Rate: 81 O2 Saturation: 96 (on RA) Blood Pressure: 112/79 (left wrist) - Physical Exam General Appearance: positive: No acute distress, Alert, Cachetic, Other (well groomed OOB in wheelchair) Eyes Bilateral: positive: Normal inspection ENT: positive: No signs of dehydration, Other (+upper dentures) Neck: positive: Trachea midline Cardiovascular: positive: Regular rate & rhythm, No murmur Respiratory: positive: No respiratory distress, Breath sounds nml. negative: Rales Abdomen: positive: Non-tender, Soft, Nml bowel sounds Skin: positive: Pallor, Other (Visible skin intact. 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 After acute hospitalization in August 2020 he has had a significant functional decline. He is no longer ambulatory. He is a two-person assist with transfers. Wheelchair dependent. Decreased oral intake and weight loss. PPS 50% - Palliative Care Discussion: The patient has had a significant functional decline since August 2020. He presents with minimal symptom burden related to his metastatic prostate cancer diagnosis. Is unclear if he actually has underlying mesothelioma and will require additional records to evaluate for this further. The patient himself perceives that he is "feeling pretty well." He denies any acute fears or worries and recognizes that his diagnosis of prostate cancer is "fatal." In discussing his treatment course he required frequent prompting regarding management and the need to go to [facility] and relayed that he does not perceive any other course of action as "what can you do?" He has contemplated relocating to the [facility] to be closer to his children however, he has a cemetery plot next to his on [facility] and does not feel the need to move due to this course at the present time. The patient does present with some short-term memory impairment and would benefit from further evaluation regarding complex medical decision making. At the present time, he appears to be capable of weighing in on the decision-making process regarding medical management. Results - Lab Results Lab results reviewed: Yes Lab and Imaging Results: 01/07/2021 Sodium 130 09/07/2020 PSA 208 Impression and Recommendations - Palliative Care Impression: This is a frail, 85-year-old gentleman who has metastatic prostate cancer and questionable mesothelioma who is being followed at [facility] for oncology management with no perceived symptom burden at the present time. He does present with weight loss in the setting of anorexia and physical deconditioning presently working with home health physical therapy within the facility setting. He presently has no reports of generalized pain despite bone metastases due to prostate cancer. Palliative care will continue to build rapport, provide care coordination, symptom management and advance care planning. Recommendations/Counseling Done: 1. Metastatic prostate cancer. Metastatic disease to bone, lung and liver. PSA 208 August 2020. Begun on Lupron injections in September 2020. Followed at [facility] for oncologic management. Has a pending appointment later this afternoon for Lupron injection. Minimal symptom burden at the present time. 2. Mesothelioma. Questionable noted on CT scan performed August 2020. Will request further records. 3. Physical deconditioning. Multifactorial. Fall precautions. Patient currently supported by home health physical therapy with the goal to improve functional status and safety. 4. Weight loss and anorexia. In the setting of metastatic prostate cancer with denial of depression symptoms. Obtain weekly weights and follow trends. Approximately 9 pound weight loss since August 2020. Consider introduction of mirtazapine for appetite stimulation and if continued weight loss trend noted. No evidence of continued dysphagia by patient report of or facility staff report. Given the patient has 2 multivitamins prescribed will d/c general multivitamin and continue [employer]. 5. Left hip wound. Resolving. Continue roho cushion when OOB. Unable to visualize today and being followed by home health nursing for management and see those notes for further details. Due to poor oral intake this is likely contributing to slow resolution. 6. Cognitive impairment. Patient clearly has short-term memory deficits and likely has underlying dementia. Will do more formal testing such SLUMS at next visit as the patient allows to evaluate in the context of decision making capacity. 7. Advanced care planning. No POLST on file. Living will has been previously completed. Introduced goals of care to the patient and presently he does not report any fears. He is reflective on his time with his late and desire to be buried next to her when he is . He is aware that his prostate cancer is a terminal diagnosis but feels that he must proceed with treatment given his present options. Counseling provided on the continuum of palliative care. Will continue to build rapport and explore further goals moving forward as the patient presents as quite frail and at risk of sequale due to his diagnoses. CC: Home Health Nursing and PT Total time spent 60 minutes with greater than 50% of this spent in counseling and coordination of care with patient and facility staff; introduction of palli ative care and services; examination of patient; and symptom management and anticipatory guidance. A total of 33 minutes were spent reviewing medical records prior to visiting the patient. CPT 10621 Reviewed POC with patient's PCP, TOÑO Peter. Message left with patient's son/DPOA Rex at [phone] to review POC and awaiting return call. patient gave permission to speak to his son/DPOA. Disclaimer: The chart note was formulated using voice recognition technology and unfortunately sound alike errors may occur.
--- OUTSIDE RECORDS SUMMARY | 2021-01-24 21:45 | EXTERNAL MEDICAL SUMMARY RPT | Continuity of Care Document ---
:1935 Demographics Phone Unavailable Preferred Language Bahamian Marital Status Unknown Yazidi Affiliation Unknown Race Unknown Ethnic Group Unknown Author Organization Success Address [address] [id number] Phone Problems date description facility [id number] Malignant neoplasm of [facility] [id number] Secondary malignant neoplasm of [facility] [id number] Retention of urine, unspecified [facility] [id number] Malignant neoplasm of [facility] [id number] Secondary malignant neoplasm of 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 Social History date description facility [id number]
== END 2021-01-16 10:41 | disposition home or self-care (01) ==
LOC: PC 10:40
PROVIDERS: ATTEND Nurse Practitioner Family
DX: Z51.5 Encounter for palliative care (principal); C61 Malignant neoplasm of prostate; C78.00 Secondary malignant neoplasm of unspecified lung; C78.7 Secondary malignant neoplasm of liver and intrahepatic bile duct; C79.51 Secondary malignant neoplasm of bone; Z72.3 Lack of physical exercise; R63.4 Abnormal weight loss; R63.0 Anorexia; R41.89 Other symptoms and signs involving cognitive functions and awareness; Z87.891 Personal history of nicotine dependence
CPT/HCPCS: 99358

== ENCOUNTER 2021-02-02 09:30 | Outpatient (CLI) | payer MEDICARE, OTHER ==
--- NOTE | 2021-02-02 13:17 | CONSULTATION NOTE ---
Palliative Care Follow Up - Referral Referring Provider: TOÑO Peter Time of Visit: [id number] Referral setting: Assisted living Referral Reason: Metastatic Prostate Cancer/Advanced Care Planning - Information Sources Records reviewed: Previous records reviewed History/Review of Systems obtained from: Patient, Family (son/Rex DE OLIVEIRA Jr) Exam limitations: Clinical condition (mild STM impairment) - History of Present Illness Update Brief HPI Update: This is an 85-year-old gentleman who is seen in follow-up today at [facility] living in his room with his son/Rex DE OLIVEIRA present due to a history of metastatic prostate cancer, debility and advanced care planning. Please see detailed HPI from 01/16/2021 for full details. The patient was diagnosed with metastatic prostate cancer in August 2020. He began Lupron injections 10/10/2020 and is followed by Dr. Chase at [facility]. He was started on enzalutamide 11/18/2020. This medication has to be obtained from a specialty pharmacy and there have been some issues with getting this filled and is supposed to be faxed to the facility later today. The patient does have some underlying cognitive impairments that is recognize not only by himself but his son, Rex Canseco who is present. He often does not recall conversations when speaking to his son on the phone. He also is forgetful about appointments. His long-term recall is quite sharp. Would benefit from further evaluation today regarding SL UMS. He has had unintentional weight loss. He has weighed approximately 160 pounds most of his adult life. His weight in August 2020 was 137.5 pounds. Has had a 1 pound increase since last weighing in December. Presently weighs 174/02/2021. He does not attend breakfast. But he does account for lunch and dinner and has been more consistent with going down to the dining ramachandran where he is able to engage with his table mate. He denies early satiety or change in taste. He appreciates the weight loss as he is not hungry as he is "not doing anything." He denies symptoms of depression and has previously been on Zoloft and Zyprexa. He relays that he is able to engage with his neighbor, Aline as well as his table mate in the dining ramachandran. He washes TV and enjoys outings to his appointments to get out of the facility. The patient is seen in his wheelchair well groomed out of bed with no evidence of acute distress. Past Medical History: Patient has a past medical history of hypertension, GERD,BPH, prostate cancer diagnosed 08/2020, depression, anxiety, glaucoma, actinic keratosis, indwelling Hoang catheter. Social History - Living Situation Living arrangement: Assisted living Living Situation: Alone Support System: The patient is . He left high school early at 17 to join the and then eventually completed his GED. 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 His , who is Amharic, approximately 5 years ago after they have been together for 43 years. He and his met at the [facility] on [facility]. He has 3 children, 1 son and 2 daughters. All of his children reside on the [facility]. The patient moved into [facility] assisted living in November 2020 after a rehabilitation stay in [place]. His sonRex is his DPOA with contact number [phone]. Medications/Allergies - Medications Home Medications: Ambulatory Orders Medication Instructions Recorded Confirmed Aspirin Chewable [St Edgar 81 mg PO DAILY 09/06/20 01/16/21 Aspirin] Dorzolamide HCl/Pf [Dorzolamide 2% 1 drops EACHEYE BID 09/08/20 01/16/21 Eye Drop] Timolol 0.5% Ophth Drops [Timoptic 1 drops EACHEYE BID 09/08/20 01/16/21 0.5% Ophth Drops] Multivitamin W/Minerals [Theragran 1 tab PO DAILYWM #30 tablet 09/09/20 01/16/21 M] Pantoprazole [Protonix] 40 mg PO QDAC #30 tablet 09/09/20 01/16/21 Tamsulosin [Flomax] 0.4 mg PO HS #30 capsule 09/09/20 01/16/21 Diclofenac Sodium [Voltaren 1 applic PRN 01/08/21 Arthritis Pain] Enzalutamide [Xtandi] 160 mg PO DAILY PM 01/08/21 01/16/21 Probiotic Capsule 2 cap PO BID 01/16/21 - Allergies Allergies/Adverse Reactions: Allergies Allergy/AdvReac Type Severity Reaction Status Date / Time No Known Drug Allergies Allergy Verified 01/07/21 23:03 Review of Systems - Constitutional Constitutional: reports: Fatigue, Poor appetite, Other (01/23/2021 130lb; previous weight 129lb 12/2020). denies: Fever - Eyes Eyes: reports: Corrective lenses (for reading) - Ears, Nose & Throat Ears, Nose & Throat: reports: Hearing loss, Dentures. denies: Hearing aids - Cardiovascular Cardiovascular: denies: Edema - Respiratory Respiratory: denies: Cough - Gastrointestinal Gastrointestinal: reports: Poor appetite. denies: Abdominal pain, Constipation (reports bowel movement every 1-2 days with feccal incontinence), Nausea, Bloating, Early satiety - Genitourinary Genitourinary: reports: Other (Hoang catheter in place). denies: Urethral discharge - Musculoskeletal Musculoskeletal: reports: Assistive devices (wheel chair, working with PT), Transfer issues. denies: Joint pain - Integumentary Integumentary: reports: Other (left hip wound followed by nursing) - Neurological Neurological: reports: General weakness, Memory problems (patient perceives his memory problems as due to age and his son/DPOA notes STM impairment) - Psychiatric Psychiatric: reports: Depression - Endocrine Endocrine: denies: Diabetes type 2 - All Other Systems All Other Systems: reports: Reviewed and negative Physical Exam - Vital Signs Temperature: 36.3 C Pulse Rate: 68 O2 Saturation: 95 (on RA) Blood Pressure: 142/73 (left wrist cuff) - Physical Exam General Appearance: positive: No acute distress, Alert, Cachetic, Other (well groomed, OOB in wheelchair) Eyes Bilateral: positive: Normal inspection ENT: positive: No signs of dehydration Neck: positive: Trachea midline Cardiovascular: positive: Regular rate & rhythm Respiratory: positive: No respiratory distress, Breath sounds nml Abdomen: positive: Non-tender, Soft, Nml bowel sounds, Other (hoang catheter draining clear yellow urine). negative: Distended Skin: positive: Pallor, Other (Visible skin intact. Please see nursing notes regarding wounds that are not visible.) Extremities: positive: No pedal edema, Other (generalized muscular atrophy) Neurologic/Psychiatric: positive: Oriented x3 (SLUMS Preformed today with score 22/30), Weakness (generalized), Flat affect Palliative Care - POLST Patient has POLST: Yes POLST Status: DNR, Selective Treatment Pain: No pain Feelings of wellbeing/Perceived Quality of Life: Acceptable Sleep: Sleeps well Constipation: No Performance Status: Prior to August 2020 he was functioning independently in his home in [place]. After acute hospitalization August 2020 he has had significant decline. He is no longer ambulatory. He is a two-person assist with transfers. Wheelchair dependent. Recent increase from noted weight loss. Decreased oral intake. In continent of bowels. PPS 50% - Palliative Care Discussion: The patient has had a significant functional decline since August 2020. He greatly desires to be able to be more active in the community as well as being able to drive again but perceives that he is in a safe space and has adjusted to his environment in assisted living. He recognizes that he has prostate cancer and feels that he is "pretty healthy for an old kulwant." He continues to wish to proceed with treatment for his metastatic prostate cancer. At the present time, he presents with minimal symptom burden related to his cancer diagnosis. The patient does present with some short-term memory impairment and would benefit from assistance with complex medical decision making by his son and DPOA. The patient is able to make his preferences regarding decision-making known. SLU MS performed today with a score of 22 out of 30 indicative of mild cognitive impairment. POLST explored today with patient and son/DPOA and completed as DN AR with selective treatment. The patient opted to defer making a decision regarding tube feedings at this time. He was very clear during discussion regarding end-of-life that he does not wish to be in any pain. He also has a desire to within his home. Impression and Recommendations - Palliative Care Impression: This is a frail, 85-year-old gentleman with metastatic prostate cancer being followed by Dr. Haddad at [facility] with no perceived symptom burden relating to his cancer diagnosis at this time. He has had weight loss in the setting of anorexia and generalized muscular atrophy with a recent 1 pound increase in the last month. He continues to work with home health physical therapy within the facility setting and home health nursing is following for Hoang catheter and wound management. Palliative care will continue to build rapport, provide care coordination, symptom management and advance care planning. Recommendations/Counseling Done: 1. Metastatic prostate cancer. Metastatic disease to bone, lung and liver. PSA 208 in August 2020. Begun on Lupron injections in September 2020. Followed at [facility] with Dr. Haddad for management. Minimal symptom burden at this time. 2. Weight loss and anorexia. In the setting of metastatic prostate cancer without depressive symptoms. 1 pound increase in weight in the last month. Continue to encourage the patient to attend meals in the dining ramachandran for socialization and appetite stimulation. Continue to monitor weekly weights and follow trends. Consider introduction of mirtazapine for appetite stimulation and if a continued weight loss trend is noted. He continues on a multivitamin. 3. Mild cognitive impairment. Patient has short-term memory deficits and to SL UMS performed today with score of 22 out of 30 indicative of mild cognitive impairment. The patient would benefit from assistance and support when making complex medical decision from his son/DPNIKOLASRex. He is able to make his needs known. Would expect a gradual, decline. 4. Advanced care planning POLST reviewed at length today with patient and son/Rex DE OLIVEIRA and completed as DN AR with selective interventions, antibiotic therapy for symptom management and presently deferring regarding artificial nutrition by tube. The patient is aware that he has a terminal diagnosis but otherwise feels that he is "quite healthy." As the patient is quite fragile he would benefit from continue support from palliative care along the continuum. We will continue to build rapport. The patient has been quite expressive today and his desire to not have any pain related to symptom burden and wishes for this to be controlled. He also expresses a desire to have a within his home and environment. We will continue to explore goals of care moving forward. Total time spent 60 minutes with greater than 50% of the spent in counseling coordination of care with the patient and son/Rex DE OLIVEIRA who is present; introduction of palliative care and services; SLUMS Evaluation; examination of patient; symptom management and anticipatory guidance. Updated patient's PCP, TOÑO Lakhani regarding plan of care. Disclaimer: The chart note was formulated using voice recognition technology and unfortunately sound alike errors may occur.
== END 2021-02-02 09:31 | disposition home or self-care (01) ==
LOC: PC 09:30
PROVIDERS: ATTEND Nurse Practitioner Family
DX: Z51.5 Encounter for palliative care (principal); Z66 Do not resuscitate; C61 Malignant neoplasm of prostate; C78.7 Secondary malignant neoplasm of liver and intrahepatic bile duct; C78.00 Secondary malignant neoplasm of unspecified lung; C79.51 Secondary malignant neoplasm of bone; R63.4 Abnormal weight loss; R63.0 Anorexia; G31.84 Mild cognitive impairment of uncertain or unknown etiology; Z79.899 Other long term (current) drug therapy

== ENCOUNTER 2021-02-22 02:45 | Outpatient (CLI) | payer MEDICARE, OTHER | END 2021-02-22 02:46 | disposition critical access hospital (66) | LOC: EMS 02:45 | DX: T83.011A Breakdown (mechanical) of indwelling urethral catheter, initial encounter (principal); R10.30 Lower abdominal pain, unspecified | CPT/HCPCS: A0425; A0429 ==

== ENCOUNTER 2021-02-22 03:00 | Emergency (ER) | payer MEDICARE, OTHER ==
--- NOTE | 2021-02-22 03:06 | ED Physician Documentation ---
PD HPI MALE - Stated complaint Stated Complaint: - History obtained from History obtained from: Patient, EMS, Caregiver - History of Present Illness Timing - onset: Yesterday (Staff at [facility] report the patient has only had less than 100 ml out his hoang into collection bag since yesterday. he has had urine out around the catheter and has wet bed and pants. Has had chronic hoang s/p prostate problem. No fevers, vomiting nor altered mentation.) Timing - duration: Days (1-2) Timing - details: Abrupt onset Associated symptoms: Hoang problem (leaking around the catheter and not out it.) PD HPI MALE CONTRIB FACTORS: Indwelling catheter Similar symptoms before: Diagnosis (clogged catheter at times) Review of Systems Unable to obtain: Dementia, Other (info from caregivers via EMS report.) Constitutional: denies: Fever Respiratory: denies: Cough GI: denies: Abdominal Pain, Vomiting : reports: Hoang Problem. denies: Hematuria PD PAST MEDICAL HISTORY - Past Medical History Cardiovascular: Hypertension Respiratory: None Neuro: Dementia Endocrine/Autoimmune: None GI: GERD : Benign prostate hypertrophy, Indwelling catheter, Other (Prostate Cancer 08/2020) HEENT: Glaucoma Psych: Depression, Anxiety Musculoskeletal: None Derm: Other (Actinic Keratosis) - Past Surgical History Past Surgical History: Yes General: Colonoscopy HEENT: Cataracts, Tonsil/Adenoidectomy - Present Medications Home Medications: Ambulatory Orders Medication Instructions Recorded Confirmed Aspirin Chewable [St Edgar 81 mg PO DAILY 09/06/20 02/22/21 Aspirin] Dorzolamide HCl/Pf [Dorzolamide 2% 1 drops EACHEYE BID 09/08/20 02/22/21 Eye Drop] Timolol 0.5% Ophth Drops [Timoptic 1 drops EACHEYE BID 09/08/20 02/22/21 0.5% Ophth Drops] Multivitamin W/Minerals [Theragran 1 tab PO DAILYWM #30 tablet 09/09/20 02/22/21 M] Pantoprazole [Protonix] 40 mg PO QDAC #30 tablet 09/09/20 02/22/21 Tamsulosin [Flomax] 0.4 mg PO HS #30 capsule 09/09/20 02/22/21 Diclofenac Sodium [Voltaren 1 applic TOP BID 01/08/21 02/22/21 Arthritis Pain] Enzalutamide [Xtandi] 160 mg PO DAILY PM 01/08/21 02/22/21 Probiotic Capsule 2 cap PO BID 01/16/21 02/22/21 - Allergies Allergies/Adverse Reactions: Allergies Allergy/AdvReac Type Severity Reaction Status Date / Time No Known Drug Allergies Allergy Verified 02/22/21 03:10 - Social History Does the pt smoke?: No Smoking Status: Former smoker Does the pt drink ETOH?: No Does the pt have substance abuse?: No - Immunizations Immunizations are current?: Yes - POLST Patient has POLST: Yes PD ED PE NORMAL - Vitals Vital signs reviewed: Yes - General General: No acute distress, Well developed/nourished, Other (attentive and oriented to person/place. ) - Cardiac Cardiac: RRR, No murmur - Respiratory Respiratory: No respiratory distress, Clear bilaterally - Abdomen Abdomen: Soft, Other (some fullness in suprapubic area but only minimally tender. ) - Male Male : Other (normal penis with catheter in place. No redness nor discharge at meatus. ) - Rectal Rectal: Deferred - Back Back: No CVA TTP - Derm Derm: Normal color, Warm and dry - Extremities Extremities: No edema, No calf tenderness / cord - Neuro Neuro: No motor deficit, No sensory deficit, Normal speech Results - Vitals Vitals: Vital Signs - 24 hr 02/22/21 02/22/21 03:01 03:46 Temperature 36.2 C L 36.2 C L Heart Rate 86 77 Respiratory 14 14 Rate Blood Pressure 168/91 H 146/82 H O2 Saturation 98 98 Oxygen O2 Source Room air - Labs Labs: Laboratory Tests 02/22/21 02/22/21 03:30 03:30 WBC 7.0 RBC 3.66 L Hgb 12.4 L Hct 35.7 L MCV 97.5 H MCH 33.9 H MCHC 34.7 RDW 13.7 Plt Count 344 MPV 9.6 Neut # (Auto) 4.2 Lymph # (Auto) 1.7 Breathitt # (Auto) 0.8 Eos # (Auto) 0.2 Baso # (Auto) 0.1 Absolute Nucleated RBC 0.00 Nucleated RBC % 0.0 Sodium 127 L Potassium 4.0 Chloride 95 L Carbon Dioxide 23 Anion Gap 9.0 BUN 12 Creatinine 0.6 Estimated GFR (MDRD) 128 Glucose 123 H Calcium 8.5 PD MEDICAL DECISION MAKING - ED course Complexity details: reviewed results (normal renal function - no signs of renal effect of retention (since was draining around the catheter, did not cause obstructive uropathy). ), considered differential (hoang not draining and there was 200 ml by scanner. Resistance to irrigation per nursing. New catheter placed and draining okay. ), d/w patient Departure - Departure Disposition: 01 Home, Self Care Clinical Impression: Hoang catheter problem Qualifiers: Encounter type: initial encounter Qualified Code(s): T83.9XXA - Unspecified complication of genitourinary prosthetic device, implant and graft, initial encounter Condition: Stable Record reviewed to determine appropriate education?: Yes Comments: Continue usual medications and hoang catheter care.
--- OUTSIDE RECORDS SUMMARY | 2021-02-22 03:13 | EXTERNAL MEDICAL SUMMARY RPT | Continuity of Care Document ---
:1935 Demographics Phone Unavailable Preferred Language Faroese Marital Status Unknown Druze Affiliation Unknown Race Unknown Ethnic Group Unknown Author Organization [facility] [address] [place] [address] Phone Problems date description facility [id number] Secondary malignant neoplasm of pleura [facility] [id number] Secondary malignant neoplasm of bone [facility] [id number] Malignant neoplasm of prostate [facility] [id number] Secondary malignant neoplasm of bone [facility] [id number] Malignant neoplasm of [facility] [id number] nursing home (current) use of antibiotics [facility] [id number] Secondary malignant neoplasm of bone [facility] [id number] Malignant neoplasm of [facility]
[2021-02-22 03:37] LABS: BASOPHILS # (AUTO) 0.1 10^3/uL (0.0-0.1); BASOPHILS % (AUTO) 0.7 %; EOSINOPHILS # (AUTO) 0.2 10^3/uL (0.0-0.7); EOSINOPHILS % (AUTO) 2.3 %; HCT - HEMATOCRIT 35.7 % (42.0-52.0); HGB - HEMOGLOBIN 12.4 g/dL (14.0-18.0); LYMPHOCYTES # (AUTO) 1.7 10^3/uL (1.5-3.5); MEAN CORPUSCULAR HEMOGLOBIN 33.9 pg (27.0-31.0); MEAN CORPUSCULAR HGB CONC 34.7 g/dL (32.0-36.0); MEAN CORPUSCULAR VOLUME 97.5 fL (80.0-94.0); MEAN PLATELET VOLUME 9.6 fL (7.4-11.4); MONOCYTES # (AUTO) 0.8 10^3/uL (0.0-1.0); MONOCYTES % (AUTO) 12.1 %; NEUTROPHILS # (AUTO) 4.2 10^3/uL (1.5-6.6); NEUTROPHILS % (AUTO) 60.5 %; PLT - PLATELET COUNT 344 10^3/uL (130-450); RED BLOOD COUNT 3.66 10^6/uL (4.70-6.10); RED CELL DISTRIBUTION WIDTH 13.7 % (12.0-15.0)
[2021-02-22 03:46] LABS: CALCIUM 8.5 mg/dL (8.5-10.3); CREATININE 0.6 mg/dL (0.6-1.2)
[2021-02-22 05:02] VITALS: BP 145/82
== END 2021-02-22 04:23 | disposition home or self-care (01) ==
LOC: EDUNIT# → ED 03:00
DX: T83.091A Other mechanical complication of indwelling urethral catheter, initial encounter (principal); Y84.6 Urinary catheterization as the cause of abnormal reaction of the patient, or of later complication, without mention of misadventure at the time of the procedure; F03.90 Unspecified dementia, unspecified severity, without behavioral disturbance, psychotic disturbance, mood disturbance, and anxiety; I10 Essential (primary) hypertension; N40.1 Benign prostatic hyperplasia with lower urinary tract symptoms; R39.9 Unspecified symptoms and signs involving the genitourinary system; H40.9 Unspecified glaucoma; Z79.82 Long term (current) use of aspirin; Z79.899 Other long term (current) drug therapy; Z85.46 Personal history of malignant neoplasm of prostate; Z87.891 Personal history of nicotine dependence
CPT/HCPCS: 36415; 51702; 51798; 80048; 85025; 99283

== ENCOUNTER 2021-02-22 09:14 | Outpatient (CLI) | payer MEDICARE, OTHER | END 2021-02-22 09:15 | disposition home or self-care (01) | LOC: EMS 09:14 | PROVIDERS: ATTEND Emergency Medicine | DX: F03.90 Unspecified dementia, unspecified severity, without behavioral disturbance, psychotic disturbance, mood disturbance, and anxiety (principal); Z74.01 Bed confinement status | CPT/HCPCS: A0425; A0428 ==

== ENCOUNTER 2021-03-21 | Emergency (ER) | payer MEDICARE, OTHER ==
--- OUTSIDE RECORDS SUMMARY | 2021-03-21 05:12 | EXTERNAL MEDICAL SUMMARY RPT | Continuity of Care Document ---
:1935 Demographics Phone Unavailable Preferred Language Tajik Marital Status Unknown Orthodoxy Affiliation Unknown Race Unknown Ethnic Group Unknown Author Organization [facility] [address] [place] [address] Phone Care Team Providers Name Role Phone Michelle Unavailable Unavailable Allergies Encounters Medications Problems date description facility [id number] Malignant neoplasm of prostate [facility] [id number] Secondary malignant neoplasm of [facility] [id number] Secondary malignant neoplasm of [facility] [id number] Malignant neoplasm of [facility] [id number] Secondary malignant neoplasm of [facility] [id number] Secondary malignant neoplasm of bone [facility] [id number] Malignant neoplasm of [facility] [phone] Secondary malignant neoplasm of [facility] [phone] Malignant neoplasm of [facility] Results
--- NOTE | 2021-05-09 23:06 | ED Physician Documentation ---
PD HPI MALE - Stated complaint Stated Complaint: CATH ISSUE - Chief complaint Chief Complaint: Abd Pain - History of Present Illness Timing - onset: Today Timing - details: Abrupt onset, Still present Associated symptoms: Hoang problem (not draining this morning and patient uncomfortable.) PD HPI MALE CONTRIB FACTORS: Indwelling catheter Recently seen: Not recently seen Review of Systems Constitutional: denies: Fever, Chills GI: denies: Abdominal Pain, Nausea, Vomiting PD PAST MEDICAL HISTORY - Past Medical History Past Medical History: Yes Cardiovascular: Hypertension Respiratory: None Neuro: Dementia Endocrine/Autoimmune: None GI: GERD : Benign prostate hypertrophy, Indwelling catheter, Other HEENT: Glaucoma Psych: Depression, Anxiety Musculoskeletal: None Derm: Other - Past Surgical History Past Surgical History: Yes General: Colonoscopy HEENT: Cataracts, Tonsil/Adenoidectomy - Present Medications Home Medications: Ambulatory Orders Medication Instructions Recorded Confirmed Aspirin Chewable [[place] 81 mg PO DAILY 09/06/20 03/31/21 Aspirin] Dorzolamide HCl/Pf [Dorzolamide 2% 1 drops EACHEYE BID 09/08/20 03/31/21 Eye Drop] Timolol 0.5% Ophth Drops [Timoptic 1 drops EACHEYE BID 09/08/20 03/31/21 0.5% Ophth Drops] Multivitamin W/Minerals [Theragran 1 tab PO DAILYWM #30 tablet 09/09/20 03/31/21 M] Pantoprazole [Protonix] 40 mg PO QDAC #30 tablet 09/09/20 03/31/21 Tamsulosin [Flomax] 0.4 mg PO HS #30 capsule 09/09/20 03/31/21 Diclofenac Sodium [Voltaren 1 applic TOP BID 01/08/21 03/31/21 Arthritis Pain] Enzalutamide [Xtandi] 160 mg PO DAILY PM 01/08/21 03/31/21 Probiotic Capsule 2 cap PO BID 01/16/21 03/31/21 - Allergies Allergies/Adverse Reactions: Allergies Allergy/AdvReac Type Severity Reaction Status Date / Time No Known Drug Allergies Allergy Verified 03/30/21 23:50 - Social History Does the pt smoke?: No Smoking Status: Never smoker Does the pt drink ETOH?: No Does the pt have substance abuse?: No - Immunizations Immunizations are current?: Yes - POLST Patient has POLST: Yes PD ED PE NORMAL - Vitals Vital signs reviewed: Yes - General General: Alert and oriented X 3, No acute distress (seems some uncomfortable due to lower abd fullness. ), Well developed/nourished - Back Back: No CVA TTP - Derm Derm: Normal color, Warm and dry - Neuro Neuro: Alert and oriented X 3, No motor deficit, Normal speech Results - Vitals Vitals: Oxygen O2 Source Room air PD MEDICAL DECISION MAKING - ED course Complexity details: considered differential (hoang apparently not draining. Bladder scan showing large amount. Irrigation not really leading to drainage. Hoang changed with good urine output. Clots irrigated. Now draining okay and he feels improved. ), d/w patient Departure - Departure Disposition: 01 Home, Self Care Clinical Impression: Hoang catheter problem Qualifiers: Encounter type: initial encounter Qualified Code(s): T83.9XXA - Unspecified complication of genitourinary prosthetic device, implant and graft, initial encounter Condition: Stable Instructions: ED Catheter Care Hoang Follow-Up: HELENA CRISOSTOMO ARNP [Primary Care Provider] - Comments: New with your usual Hoang catheter care. Other medications as usual. Discharge Date/Time: 03/21/21 06:23
== END 2021-03-21 06:23 | disposition home or self-care (01) ==
CPT/HCPCS: 51798; 99283

== ENCOUNTER 2021-03-21 04:47 | Outpatient (CLI) | payer MEDICARE, OTHER | END 2021-03-21 04:48 | disposition critical access hospital (66) | LOC: EMS 04:47 | DX: T83.028A Displacement of other urinary catheter, initial encounter (principal) | CPT/HCPCS: A0425; A0429 ==

== ENCOUNTER 2021-03-21 06:25 | Outpatient (CLI) | payer MEDICARE, OTHER | END 2021-03-21 06:26 | disposition home or self-care (01) | LOC: EMS 06:25 | PROVIDERS: ATTEND Emergency Medicine | DX: F03.90 Unspecified dementia, unspecified severity, without behavioral disturbance, psychotic disturbance, mood disturbance, and anxiety (principal); R41.0 Disorientation, unspecified | CPT/HCPCS: A0425; A0428 ==

== ENCOUNTER 2021-03-30 23:22 | Outpatient (CLI) | payer MEDICARE, OTHER | END 2021-03-30 23:23 | disposition critical access hospital (66) | LOC: EMS 23:22 | DX: R31.0 Gross hematuria (principal); Z96.0 Presence of urogenital implants | CPT/HCPCS: A0425; A0429 ==

== ENCOUNTER 2021-03-30 23:38 | Emergency (ER) | payer MEDICARE, OTHER ==
--- OUTSIDE RECORDS SUMMARY | 2021-03-30 23:55 | EXTERNAL MEDICAL SUMMARY RPT | Continuity of Care Document ---
:1935 Demographics Phone Unavailable Preferred Language Icelandic Marital Status Unknown Caodaism Affiliation Unknown Race Unknown Ethnic Group Unknown Author Organization [facility] Address [address] [place] [address] Phone Care Team Providers Name Role Phone Michelle Unavailable Unavailable Allergies Encounters Medications Problems date description facility [id number] Secondary malignant neoplasm of [facility] [id number] Secondary malignant neoplasm of [facility] [id number] Malignant neoplasm of [facility] [id number] Malignant neoplasm of prostate [facility] [id number] Secondary malignant neoplasm of [facility] [id number] Secondary malignant neoplasm of [facility] [id number] Malignant neoplasm of [facility] [id number] Secondary malignant neoplasm of [facility] [phone] Secondary malignant neoplasm of [facility] [id number] Malignant neoplasm of [facility] [id number] Secondary malignant neoplasm of [facility] [phone] Secondary malignant neoplasm of [facility] [id number] Malignant neoplasm of [facility] Results
[2021-03-31 00:34] LABS: BILIRUBIN,URINE NEGATIVE (NEGATIVE); GLUCOSE, URINE (UA) NEGATIVE (NEGATIVE); KETONES,URINE (UA) TRACE mg/dL (NEGATIVE); LEUKOCYTE ESTERASE, URINE MODERATE (NEGATIVE); NITRITE,URINE POSITIVE (NEGATIVE); OCCULT BLOOD,URINE LARGE (NEGATIVE); PH,URINE >=9.0 PH (5.0-7.5); PROTEIN,URINE >=300 mg/dL (NEGATIVE); UROBILINOGEN,URINE 0.2 (NORMAL) E.U./dL (NORMAL)
[2021-03-31 00:40] LABS: CLARITY,URINE CLOUDY (CLEAR)
[2021-03-31 00:44] LABS: BACTERIA,URINE Many /HPF (None Seen); CRYSTALS,URINE 11-25 Triple Phos /LPF; RBC,URINE TNTC /HPF (0-5); SQUAMOUS EPITHELIAL CELL,UR RARE Squamous (<= Few); WBC,URINE >25 /HPF (0-3)
--- NOTE | 2021-03-31 00:56 | ED Physician Documentation ---
History of Present Illness - Stated complaint Stated Complaint: MALE - Chief complaint Chief Complaint: General - History obtained from History obtained from: Patient, EMS - Additonal information Additional information: Patient sent to the emergency department chief complaint of decreased urine output from indwelling Ross catheter. The patient has a history of benign prostatic hypertrophy and has a chronic indwelling Ross which was last changed on March 21. Patient denies any fevers or chills. No abdominal pain. No back pain. The patient does note a sense of need to urinate, but otherwise has no complaints. Review of Systems Ten Systems: 10 systems reviewed and negative Constitutional: reports: Reviewed and negative Eyes: reports: Reviewed and negative Ears: reports: Reviewed and negative Nose: reports: Reviewed and negative Throat: reports: Reviewed and negative Cardiac: reports: Reviewed and negative Respiratory: reports: Reviewed and negative GI: reports: Reviewed and negative : reports: Other (Urgency) Skin: reports: Reviewed and negative Musculoskeletal: reports: Reviewed and negative Neurologic: reports: Reviewed and negative Psychiatric: reports: Reviewed and negative Endocrine: reports: Reviewed and negative Immunocompromised: reports: Reviewed and negative PD PAST MEDICAL HISTORY - Past Medical History Past Medical History: Yes Cardiovascular: Hypertension Respiratory: None Neuro: Dementia Endocrine/Autoimmune: None GI: GERD : Benign prostate hypertrophy, Indwelling catheter, Other HEENT: Glaucoma Psych: Depression, Anxiety Musculoskeletal: None Derm: Other - Past Surgical History Past Surgical History: Yes General: Colonoscopy HEENT: Cataracts, Tonsil/Adenoidectomy - Present Medications Home Medications: Ambulatory Orders Medication Instructions Recorded Confirmed Aspirin Chewable [[place] 81 mg PO DAILY 09/06/20 02/22/21 Aspirin] Dorzolamide HCl/Pf [Dorzolamide 2% 1 drops EACHEYE BID 09/08/20 02/22/21 Eye Drop] Timolol 0.5% Ophth Drops [Timoptic 1 drops EACHEYE BID 09/08/20 02/22/21 0.5% Ophth Drops] Multivitamin W/Minerals [Theragran 1 tab PO DAILYWM #30 tablet 09/09/20 02/22/21 M] Pantoprazole [Protonix] 40 mg PO QDAC #30 tablet 09/09/20 02/22/21 Tamsulosin [Flomax] 0.4 mg PO HS #30 capsule 09/09/20 02/22/21 Diclofenac Sodium [Voltaren 1 applic TOP BID 01/08/21 02/22/21 Arthritis Pain] Enzalutamide [Xtandi] 160 mg PO DAILY PM 01/08/21 02/22/21 Probiotic Capsule 2 cap PO BID 01/16/21 02/22/21 - Allergies Allergies/Adverse Reactions: Allergies Allergy/AdvReac Type Severity Reaction Status Date / Time No Known Drug Allergies Allergy Verified 03/30/21 23:50 - Social History Does the pt smoke?: No Smoking Status: Never smoker Does the pt drink ETOH?: No Does the pt have substance abuse?: No - Immunizations Immunizations are current?: Yes - POLST Patient has POLST: Yes PD ED PE NORMAL - Vitals Vital signs reviewed: Yes - General General: Alert and oriented X 3, No acute distress, Well developed/nourished - HEENT HEENT: Atraumatic, PERRL, EOMI, Moist mucous membranes - Neck Neck: Supple, no meningeal sign - Cardiac Cardiac: RRR, No murmur, Strong equal pulses - Respiratory Respiratory: No respiratory distress, Clear bilaterally - Abdomen Abdomen: Soft, Non tender, Non distended - Derm Derm: Normal color, Warm and dry, No rash - Extremities Extremities: No deformity, No edema, No calf tenderness / cord - Neuro Neuro: Other (Alert, grossly intact.) - Psych Psych: Normal mood, Normal affect Results - Vitals Vitals: Vital Signs - 24 hr 03/30/21 23:40 Temperature 36.2 C L Heart Rate 77 Respiratory 18 Rate Blood Pressure 154/77 H O2 Saturation 98 Oxygen O2 Source Room air - Labs Labs: Laboratory Tests 03/31/21 00:07 Urine Color DARK YELLOW Urine Clarity CLOUDY Urine pH >=9.0 H Ur Specific [place] 1.010 Urine Protein >=300 H Urine Glucose (UA) NEGATIVE Urine Ketones TRACE Urine Occult Blood LARGE H Urine Nitrite POSITIVE H Urine Bilirubin NEGATIVE Urine Urobilinogen 0.2 (NORMAL) Ur Leukocyte Esterase MODERATE H Urine RBC TNTC H Urine WBC >25 H Ur Squamous Epith Cells RARE Squamous Urine Crystals 11-25 Triple Phos Urine Bacteria Many H Ur Microscopic Review INDICATED Urine Culture Comments INDICATED PD MEDICAL DECISION MAKING - ED course Complexity details: reviewed results, re-evaluated patient, considered differential, d/w patient ED course: The patient's catheter was flushed and was found to be patent. Approximately 200 cc of dark yellow urine were put out during patient stay in the emergency department. We have discussed the need to drink plenty of fluids. Urinalysis was strongly positive, which is not surprising, given that the patient has an indwelling Ross catheter. However given the lack of other symptoms of urinary tract infection, I did not feel this should be treated at this time. We have discussed Ross catheter care at home, as well as the usual indications for return. Departure - Departure Disposition: Home, Self Care Clinical Impression: Ross catheter problem Qualifiers: Encounter type: initial encounter Qualified Code(s): T83.9XXA - Unspecified complication of genitourinary prosthetic device, implant and graft, initial encounter Condition: Stable Instructions: ED Catheter Care Ross, Catheter Indwelling Urinary Dc Comments: Your catheter has flushed very well tonight in the emergency department, and there is no evidence of an obstruction. You do need to drink plenty of water and probably are not drinking quite enough at home. Please be sure you drink 6 to 8 cups of water per day. At this point in time, your urine shows the typical findings of urine that is obtained from a chronic catheter. Given that you do not have any symptoms consistent with infection, antibiotics are not appropriate at this time. If you begin to have abdominal pain, chills, fevers, or back pain, then you should be rechecked.
[2021-03-31 03:18] VITALS: BP 150/72
== END 2021-03-31 03:28 | disposition home or self-care (01) ==
LOC: EDUNIT# → ED 23:38
DX: T83.091A Other mechanical complication of indwelling urethral catheter, initial encounter (principal); I10 Essential (primary) hypertension; N40.1 Benign prostatic hyperplasia with lower urinary tract symptoms; R33.8 Other retention of urine
CPT/HCPCS: 81001; 81003; 87077; 87086; 87181; 99283

== ENCOUNTER 2021-03-31 03:30 | Outpatient (CLI) | payer MEDICARE, OTHER | END 2021-03-31 03:31 | disposition home or self-care (01) | LOC: EMS 03:30 | PROVIDERS: ATTEND Emergency Medicine | DX: F03.90 Unspecified dementia, unspecified severity, without behavioral disturbance, psychotic disturbance, mood disturbance, and anxiety (principal); R41.0 Disorientation, unspecified; Z74.01 Bed confinement status; T83.091A Other mechanical complication of indwelling urethral catheter, initial encounter | CPT/HCPCS: A0425; A0428 ==

== ENCOUNTER 2021-05-29 11:45 | Outpatient (CLI) | payer MEDICARE, OTHER ==
--- NOTE | 2021-05-29 13:58 | CONSULTATION NOTE ---
Palliative Care Follow Up - Referral Referring Provider: TOÑO Peter Time of Visit: Initiated 1145 Referral setting: Assisted living Referral Reason: Metastatic Prostate CA/Weight Loss/f/u UTI - Information Sources Records reviewed: Previous records reviewed History/Review of Systems obtained from: Patient, Nursing Exam limitations: Clinical condition (STM impairment) - History of Present Illness Update Brief HPI Update: This is a 86-year-old gentleman who was seen in follow-up today [facility] assisted living Due to a history of metastatic prostate cancer, recent UTI, and weight loss. Please see detailed HPI from 01/16/2021 for full details. The patient was diagnosed with metastatic prostate cancer August 2020. He began Lupron injections 10/10/2020 and then enzalutamide on . He is followed by Dr. Haddad at [facility]. Have requested most recent follow-up visit from the cancer center for review. The patient has weighed approximately 160 pounds most of his adult life and unfortunately had a steady weight loss. This appears to have stabilized since he is now attending meals in the dining room. He reports that the meals at the facility are "so-so." His last recorded weight is 136 pounds on 03/03/2021. Request that nursing staff obtain a new weight for reevaluation and to record on a monthly basis. There does not appear to be any visual further weight loss appreciated than on prior visits and likely the patient has maintained. The patient is being followed by [facility] for nursing for his chronic Hoang catheter due to urinary obstruction, physical therapy and Occupational Therapy. He was seen on 03/21 due to a clogged catheter in the emergency department. That again, nursing reported that he was having decreased output and therefore urinalysis was obtained and was positive for E. coli on 05/15 and he completed a 7-day course of Bactrim DS. Patient himself denies any suprapubic discomfort, flank pain or fever. His Hoang catheter is irrigated 3 times per week to reduce risk of clogging. Facility staff report that he has overall improved and has been stable. The patient is seen in his wheelchair, well-groomed sitting at the dining table. No evidence of acute distress. Past Medical History: Patient has a past medical history of hypertension, GERD,BPH, prostate cancer diagnosed 08/2020, depression, anxiety, glaucoma, actinic keratosis, indwelling Hoang catheter. Social History - Living Situation Living arrangement: Assisted living Living Situation: Alone Support System: The patient is . He left high school early at 17 to join the and then eventually completed his GED. He served in the [employer] for 30 years and retired as a master chief dunn officer. His , who is [place], approximately 5 years ago after they have been together for 43 years. He and his met at the [email or web address] [facility]. He has 3 children, 1 son and 2 daughters. All of his children reside on the [facility]. The patient moved into [facility] assisted living in November 2020 after a rehabilitation stay in [place]. His sonRex is his DPOA with contact number [phone]. Medications/Allergies - Medications Home Medications: Ambulatory Orders Medication Instructions Recorded Confirmed Aspirin Chewable [[place] 81 mg PO DAILY 09/06/20 03/31/21 Aspirin] Dorzolamide HCl/Pf [Dorzolamide 2% 1 drops EACHEYE BID 09/08/20 03/31/21 Eye Drop] Timolol 0.5% Ophth Drops [Timoptic 1 drops EACHEYE BID 09/08/20 03/31/21 0.5% Ophth Drops] Pantoprazole [Protonix] 40 mg PO QDAC #30 tablet 09/09/20 03/31/21 Tamsulosin [Flomax] 0.4 mg PO HS #30 capsule 09/09/20 03/31/21 Diclofenac Sodium [Voltaren 1 applic TOP BID 01/08/21 03/31/21 Arthritis Pain] Enzalutamide [Xtandi] 160 mg PO DAILY PM 01/08/21 03/31/21 Probiotic Capsule 2 cap PO BID 01/16/21 03/31/21 Calcium 600 Vitamin D 400 1 tab PO DAILY 05/29/21 Multivit-Min/FA/Lycopen/Lutein 1 tab PO DAILY 05/29/21 05/29/21 [Centrum Silver Men Tablet] - Allergies Allergies/Adverse Reactions: Allergies Allergy/AdvReac Type Severity Reaction Status Date / Time No Known Drug Allergies Allergy Verified 03/30/21 23:50 Review of Systems - Constitutional Constitutional: reports: Poor appetite, Other (03/03/2021 136lb;01/23/2021 130lb; previous weight 129lb 12/2020). denies: Fever - Eyes Eyes: reports: Corrective lenses (for reading) - Ears, Nose & Throat Ears, Nose & Throat: reports: Hearing loss, Dentures. denies: Hearing aids - Cardiovascular Cardiovascular: denies: Edema - Respiratory Respiratory: denies: Wheezing - Gastrointestinal Gastrointestinal: reports: Other (Appetite is improved). denies: Abdominal pain, Constipation, Nausea - Genitourinary Genitourinary: reports: Other (Hoang catheter in place). denies: Hematuria - Musculoskeletal Musculoskeletal: reports: Assistive devices (wheel chair, working with [facility]), Transfer issues. denies: Joint pain - Integumentary Integumentary: reports: Other (left hip wound followed by nursing) - Neurological Neurological: reports: General weakness, Memory problems (+STM impairment) - Psychiatric Psychiatric: reports: Depression - Hematologic/Lymphatic Hematologic/Lymph: reports: Recurrent infections (UTIs) - All Other Systems All Other Systems: reports: Reviewed and negative (additional ROS supplemented by nursing staff) Physical Exam - Vital Signs Temperature: 36.1 C Pulse Rate: 86 Blood Pressure: 136/66 - Physical Exam General Appearance: positive: No acute distress, Alert, Other (well groomed, OOB in wheelchair, thin) Eyes Bilateral: positive: Normal inspection ENT: positive: No signs of dehydration, Other (b/l temporal wasting--appears stable) Neck: positive: Trachea midline Cardiovascular: positive: Regular rate & rhythm, No murmur Respiratory: positive: No respiratory distress, Breath sounds nml. negative: Rales Abdomen: positive: Non-tender, Soft, Nml bowel sounds, Other (+hoang catheter) Skin: positive: Pallor, Other (Visible skin intact) Extremities: positive: No pedal edema, Other (generalized muscular atrophy) Neurologic/Psychiatric: positive: Oriented x3 (+STM impairment), Weakness (generalized), Flat affect Palliative Care - POLST Patient has POLST: Yes POLST Status: DNR, Selective Treatment Pain: No pain Constipation: No Performance Status: Prior to August 2020 the patient was functioning independently in his home in [place]. After acute hospitalization in August 2020, he experienced significant decline. He is nonambulatory and presently working with home health PT and OT. Wheelchair dependent. Weight loss appears to have stabilized. Improvement of appetite. Hoang catheter in place and incontinent of bowels. PPS 50% - Palliative Care Discussion: The patient experienced significant functional decline after August 2020 and appears to have plateaued. He continues to work with home health physical therapy and occupational therapy but ultimately is wheelchair-bound. The patient himself does not perceive any pain. He frequently has a clogged urinary catheter that requires emergency department visits and is presently being flushed 3 times a week. He is also being followed by home health nursing for catheter management. He was treated for urinary tract infection the end of April 2021 with resolution of his symptoms. As the staff at the facility have been persistent With encouraging the patient to attend meals in the dining room his appetite has improved as has his socia lization resulting in an increase of his weight to last recorded at 136 pounds. He has not had a recent weight and this is requested today on it as least monthly basis for weight loss trends. Impression and Recommendations - Palliative Care Impression: This is a frail, 86-year-old gentleman with metastatic prostate cancer being f ollowed by Dr. Haddad at [facility] with no perceived symptom burden related to his cancer diagnosis. His weight loss has improved and stabilized. He continues to work with home health physical therapy within the facility setting and home health nursing is following for Hoang catheter management. He is status post urinary tract infection that has resolved. Palliative care will continue to provide care coordination, symptom management and advance care planning. Recommendations/Counseling Done: 1. Weight loss. In the setting of metastatic prostate cancer without depressive symptoms. Patient's last recorded weight in February 2021 was increased to 136 pounds. No visual proceed further weight loss. Request that facility staff obtain a weight today and on a monthly basis and notify PCP if 3 pound difference. The patient has had increased socialization as he has been attending meals in the dining ramachandran. If needed in the future consider introduction of mirtazapine for appetite stimulation. He continues on a multivitamin. 2. Urinary tract infection in the setting of Hoang catheter. Resolved symptoms status post Bactrim treatment. Continue to be followed by home health nursing for Hoang catheter management. Continues on routine Hoang catheter flushing 3 times per week. Continue to follow. 3. Mild cognitive impairment. Patient has a history of short-term memory deficits and SL UMS performed for was 22 out of 30 indicative of mild cognitive impairment. Patient is able to make his needs known though requires assistance from his son/DPRex CONNOR for complex medical decisions. CPT 06482 Plan of care reviewed with nursing staff as well as patient's PCP with questions answered and addressed. Disclaimer: The chart note was formulated using voice recognition technology and unfortunately sound alike errors may occur.
== END 2021-05-29 11:46 | disposition home or self-care (01) ==
LOC: PC 11:45
PROVIDERS: ATTEND Nurse Practitioner Family
DX: Z51.5 Encounter for palliative care (principal); R63.4 Abnormal weight loss; R41.3 Other amnesia; C61 Malignant neoplasm of prostate; C79.9 Secondary malignant neoplasm of unspecified site; Z96.0 Presence of urogenital implants; Z66 Do not resuscitate

== ENCOUNTER 2021-06-25 11:54 | Outpatient (CLI) | payer MEDICARE, OTHER | END 2021-06-25 11:55 | disposition critical access hospital (66) | LOC: EMS 11:54 | DX: T83.098A Other mechanical complication of other urinary catheter, initial encounter (principal) | CPT/HCPCS: A0425; A0429 ==

== ENCOUNTER 2021-06-25 12:09 | Emergency (ER) | payer MEDICARE, OTHER ==
--- NOTE | 2021-06-25 12:17 | ED Physician Documentation ---
PD HPI MALE - Stated complaint Stated Complaint: CATH ISSUE - History obtained from History obtained from: Patient - History of Present Illness Timing - onset: Today Timing - duration: Days (caregivers today noted his hoang was not draining and having urine out around it. No fever, pain, nor vomiting.) Timing - details: Abrupt onset, Still present Associated symptoms: Hoang problem (not draining this morning.) Similar symptoms before: Diagnosis (clogged hoang) Review of Systems Unable to obtain: Dementia, Other (info from caregiver notes.) Constitutional: denies: Fever GI: denies: Vomiting Neurologic: denies: Altered mental status PD PAST MEDICAL HISTORY - Past Medical History Cardiovascular: Hypertension Respiratory: None Neuro: Dementia Endocrine/Autoimmune: None GI: GERD : Benign prostate hypertrophy, Indwelling catheter, Other HEENT: Glaucoma Psych: Depression, Anxiety Musculoskeletal: None Derm: Other - Past Surgical History Past Surgical History: Yes General: Colonoscopy HEENT: Cataracts, Tonsil/Adenoidectomy - Present Medications Home Medications: Ambulatory Orders Medication Instructions Recorded Confirmed Aspirin Chewable [[place] 81 mg PO DAILY 09/06/20 03/31/21 Aspirin] Dorzolamide HCl/Pf [Dorzolamide 2% 1 drops EACHEYE BID 09/08/20 03/31/21 Eye Drop] Timolol 0.5% Ophth Drops [Timoptic 1 drops EACHEYE BID 09/08/20 03/31/21 0.5% Ophth Drops] Pantoprazole [Protonix] 40 mg PO QDAC #30 tablet 09/09/20 03/31/21 Tamsulosin [Flomax] 0.4 mg PO HS #30 capsule 09/09/20 03/31/21 Diclofenac Sodium [Voltaren 1 applic TOP BID 01/08/21 03/31/21 Arthritis Pain] Enzalutamide [Xtandi] 160 mg PO DAILY PM 01/08/21 03/31/21 Probiotic Capsule 2 cap PO BID 01/16/21 03/31/21 Calcium 600 Vitamin D 400 1 tab PO DAILY 05/29/21 Multivit-Min/FA/Lycopen/Lutein 1 tab PO DAILY 05/29/21 05/29/21 [Centrum Silver Men Tablet] - Allergies Allergies/Adverse Reactions: Allergies Allergy/AdvReac Type Severity Reaction Status Date / Time No Known Drug Allergies Allergy Verified 06/25/21 12:16 - Social History Does the pt smoke?: No Smoking Status: Never smoker Does the pt drink ETOH?: No Does the pt have substance abuse?: No - Immunizations Immunizations are current?: Yes - POLST Patient has POLST: Yes PD ED PE NORMAL - Vitals Vital signs reviewed: Yes - General General: No acute distress, Well developed/nourished, Other (alert, oriented to person. Not aware of location nor time c/w dementia. Does not seem delerious. ) - Abdomen Abdomen: Soft, Non tender, Other (some suprapubic fullness. Not tender. ) - Male Male : Other (catheter in place. Mild redness on base of glans. No purulence. ) - Derm Derm: Normal color, Warm and dry Results - Vitals Vitals: Vital Signs - 24 hr 06/25/21 12:16 Temperature 36.6 C Heart Rate 74 Respiratory 16 Rate Blood Pressure 153/79 H O2 Saturation 98 Oxygen O2 Source Room air PD MEDICAL DECISION MAKING - ED course Complexity details: re-evaluated patient (Nursing tried irrigating the Hoang but there was some thick material. It was not draining well still. Hoang was repla delfina and is draining appropriately of clear urine.), considered differential (Hoang seems to be not draining. He does not seem ill. No symptoms of infection. ), d/w patient Departure - Departure Disposition: 01 Home, Self Care Clinical Impression: Malfunction of Hoang catheter Qualifiers: Encounter type: initial encounter Qualified Code(s): T83.011A - Breakdown (mechanical) of indwelling urethral catheter, initial encounter Condition: Stable Record reviewed to determine appropriate education?: Yes Instructions: ED Catheter Care Hoang Comments: Continue usual medications and Hoang catheter care. Your Hoang was replaced today and seems to be draining appropriately.
[2021-06-25 15:58] VITALS: BP 145/64
== END 2021-06-25 16:00 | disposition home or self-care (01) ==
LOC: EDUNIT# → ED 12:09
DX: T83.011A Breakdown (mechanical) of indwelling urethral catheter, initial encounter (principal); Y84.6 Urinary catheterization as the cause of abnormal reaction of the patient, or of later complication, without mention of misadventure at the time of the procedure; F03.90 Unspecified dementia, unspecified severity, without behavioral disturbance, psychotic disturbance, mood disturbance, and anxiety; I10 Essential (primary) hypertension; Z79.82 Long term (current) use of aspirin
CPT/HCPCS: 51702; 99283

== ENCOUNTER 2021-06-25 16:01 | Outpatient (CLI) | payer MEDICARE, OTHER | END 2021-06-25 16:02 | disposition home or self-care (01) | LOC: EMS 16:01 | PROVIDERS: ATTEND Emergency Medicine | DX: F03.90 Unspecified dementia, unspecified severity, without behavioral disturbance, psychotic disturbance, mood disturbance, and anxiety (principal) | CPT/HCPCS: A0425; A0428 ==

== ENCOUNTER 2021-07-30 13:52 | Outpatient (CLI) | payer MEDICARE, OTHER | END 2021-07-30 13:53 | disposition critical access hospital (66) | LOC: EMS 13:52 | DX: R33.9 Retention of urine, unspecified (principal) | CPT/HCPCS: A0425; A0429 ==

== ENCOUNTER 2021-07-30 14:08 | Emergency (ER) | payer MEDICARE, OTHER ==
--- NOTE | 2021-07-30 14:19 | ED Physician Documentation ---
History of Present Illness - Stated complaint Stated Complaint: MALE - Chief complaint Chief Complaint: General - Additonal information Additional information: 86-year-old male who has a history of a chronic indwelling Ross catheter is b rought to the emergency department via EMS for evaluation of the Ross catheter which has failed to produce urine for the last 24 hours. This gentleman has had multiple visits to the ER for Ross catheter complications including disruption of the Ross catheter as well as plugging/obstruction. The patient denies any specific complaints at this time including abdominal pain. No fevers or vomiting. PD PAST MEDICAL HISTORY - Past Medical History Cardiovascular: Hypertension Respiratory: None Neuro: Dementia Endocrine/Autoimmune: None GI: GERD : Benign prostate hypertrophy, Indwelling catheter, Other HEENT: Glaucoma Psych: Depression, Anxiety Musculoskeletal: None Derm: Other - Past Surgical History Past Surgical History: Yes General: Colonoscopy HEENT: Cataracts, Tonsil/Adenoidectomy - Present Medications Home Medications: Ambulatory Orders Medication Instructions Recorded Confirmed Aspirin Chewable [[place] 81 mg PO DAILY 09/06/20 03/31/21 Aspirin] Dorzolamide HCl/Pf [Dorzolamide 2% 1 drops EACHEYE BID 09/08/20 03/31/21 Eye Drop] Timolol 0.5% Ophth Drops [Timoptic 1 drops EACHEYE BID 09/08/20 03/31/21 0.5% Ophth Drops] Pantoprazole [Protonix] 40 mg PO QDAC #30 tablet 09/09/20 03/31/21 Tamsulosin [Flomax] 0.4 mg PO HS #30 capsule 09/09/20 03/31/21 Diclofenac Sodium [Voltaren 1 applic TOP BID 01/08/21 03/31/21 Arthritis Pain] Enzalutamide [Xtandi] 160 mg PO DAILY PM 01/08/21 03/31/21 Probiotic Capsule 2 cap PO BID 01/16/21 03/31/21 Calcium 600 Vitamin D 400 1 tab PO DAILY 05/29/21 Multivit-Min/FA/Lycopen/Lutein 1 tab PO DAILY 05/29/21 05/29/21 [Centrum Silver Men Tablet] - Allergies Allergies/Adverse Reactions: Allergies Allergy/AdvReac Type Severity Reaction Status Date / Time No Known Drug Allergies Allergy Verified 06/25/21 12:16 - Social History Does the pt smoke?: No Smoking Status: Never smoker Does the pt drink ETOH?: No Does the pt have substance abuse?: No - Immunizations Immunizations are current?: Yes - POLST Patient has POLST: Yes PD ED PE EXPANDED - General General: Alert, No acute distress - Cardiac Cardiac: Regular Rate, Radial strong equal, Pedal strong equal, Cap refill < 2 sec - Respiratory Respiratory: Clear to ausultation сергей. No: Distress, Labored - Abdomen Abdomen: Normal Bowel sounds. No: Tender to palpation - Male Male : Other (Ross catheter seen exiting the penis. Very small amount of yellow urine with large amount of sediment. No abdominal or suprapubic tenderness elicited.) Results - Vitals Vitals: Vital Signs - 24 hr 07/30/21 14:13 Temperature 36.5 C Heart Rate 65 Respiratory 15 Rate Blood Pressure 140/70 H O2 Saturation 98 Oxygen O2 Source Room air PD MEDICAL DECISION MAKING - ED course Complexity details: d/w patient, d/w family ED course: 86-year-old male who has chronic indwelling Ross catheter was brought to the emergency department for failure of the catheter to drain for approximately 24 hours. We did attempt to flush the catheter at the bedside but were unsuccessful thus a new catheter was placed. It was draining clear yellow urine. Given lack of fevers abdominal tenderness will defer any UA analysis. Patient is now stable for discharge home. Departure - Departure Disposition: 01 Home, Self Care Clinical Impression: Obstructed Ross catheter Qualifiers: Encounter type: initial encounter Qualified Code(s): T83.091A - Other mechanical complication of indwelling urethral catheter, initial encounter Condition: Stable Record reviewed to determine appropriate education?: Yes Comments: Julian was seen in the emergency department today for failure of his catheter to properly drain. We did find that it was obstructed with sediment and a new Ross catheter was placed. Please return to the emergency department if he develops any fevers, has abdominal pain uncontrolled vomiting or if he fails to make urine in his catheter for 12 or more hours.
[2021-07-30 16:02] VITALS: BP 140/95
== END 2021-07-30 16:47 | disposition home or self-care (01) ==
LOC: EDUNIT# → ED 14:08
DX: T83.091A Other mechanical complication of indwelling urethral catheter, initial encounter (principal); Y84.6 Urinary catheterization as the cause of abnormal reaction of the patient, or of later complication, without mention of misadventure at the time of the procedure; N40.1 Benign prostatic hyperplasia with lower urinary tract symptoms; R33.8 Other retention of urine; I10 Essential (primary) hypertension; Z79.82 Long term (current) use of aspirin
CPT/HCPCS: 51702; 99281; 99283